=== PATIENT | male | born 1945 | race Caucasian/White ===

== ENCOUNTER → 2018-08-27 12:23 | Outpatient (CLI) | payer MEDICARE, SELFPAY ==
[2018-08-27 14:13] LABS: Absolute Lymphocyte Count 1.88 X10^3/ul (0.83-4.51); Absolute Neutrophil Count 3.7 X10^3/uL (2.0-7.7); Basophil# 0.02 X10^3/uL; Basophil% 0.3 % (0-1); Eosinophil# 0.08 X10^3/uL; Eosinophils% 1.3 % (0-5); Hematocrit 44.5 % (40-54); Hemoglobin 14.5 g/dl (13.0-16.5); Lymphocyte # 1.88 X10^3/ul (4.0); Lymphocyte % 30.5 % (19-41); Mean Corp Hgb Conc 32.6 g/gl (32-36); Mean Corpuscular Hgb 31.7 pg (27.0-32.0); Mean Corpuscular Volume 97.4 fL (80-94); Mean Platelet Vol. 10.1 fl (6.2-12.0); Monocyte# 0.45 X10^3/uL; Monocyte% 7.3 % (0-10); Neutrophil # 3.73 X10^3/uL (2.7-7.7); Neutrophil % 60.6 % (47-70); Platelet Count 265 K/mm3 (150-450); RBC Distribution Width CV 12.6 % (11.6-14.6); RBC Distribution Width SD 43.9 fl (35.1-43.9); Red Blood Count 4.57 M/mm3 (4.6-6.2); White Blood Count 6.2 K/mm3 (4.4-11.0)
[2018-08-27 14:14] LABS: POSITIVE COUNT NO; POSITIVE DIFFERENTIAL NO; POSITIVE MORPHOLOGY NO
[2018-08-27 14:17] LABS: Anion Gap 7 (5-15); BUN 7 mg/dL (7-18); BUN/Creat Ratio 7.8 RATIO (10-20); Calcium,Total 8.7 mg/dL (8.5-10.1); Chloride 101 mmol/L (98-107); Cholesterol 105 mg/dL (200); EST Glomerular Filtration Rate 87 mL/min (>60); Est Glom Filt Rate - Afr Amer 106 mL/min (>60); Glucose 83 mg/dL (74-106); High Density Lipoprotein 45 mg/dL; Potassium 3.8 mmol/L (3.5-5.1); Sodium Level 139 mmol/L (136-145); Triglycerides 208 mg/dL; Very Low Density Lipoprotein 42 mg/dL (5-40)
== END ==
PROVIDERS: Family Provider Family Medicine; PCP Family Medicine; Visit Provider Family Medicine
DX: Z86.73 Personal history of transient ischemic attack (TIA), and cerebral infarction without residual deficits (principal)
CPT/HCPCS: 36415; 80048; 80061; 85025

== ENCOUNTER 2019-01-05 14:55 | Emergency (ER) | payer MEDICARE, BC, SELFPAY ==
[2019-01-05 14:56] VITALS: BP 147/74; PULSE 65; RESP 15; TEMP 36.7; O2SAT 100; BMI 25.1
--- NOTE | 2019-01-05 15:19 | ED.DCSUM_ITS ---
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 Currently on Plavix and baby aspirin a day. Had a nosebleed a week ago and again today. All right sinus. Physical Examination: Older male no acute distress. Vital signs are stable. Initial blood pressure 147/74. HEENT exam is got bleeding from his right anterior nasal septum. No clots currently. Left side is unremarkable. There is a small amount of blood in posterior pharynx. No clots. Neck nontender. Lungs clear to auscultation bilaterally. Heart regular rhythm no murmur. Abdomen soft and nontender. Extremities he is extremely weak in the left arm and leg due to prior stroke. Right side is unremarkable. He is awake alert. Answering questions. Following commands. Test Results: None Emergency Department Course and Treatment: Andre-Synephrine soaked cotton balls be placed in both nares. On repeat exam of the bleeding is completely resolved. A right anterior Merisel nasal pack was placed patient tolerated procedure well. He will be ambulated as long as he does not believe the pain can be addressed to be discharged home. Treatment Plan: Packing out 3 days. Amoxicillin 3 times daily for 3 days. Follow-up with ENT as needed or return if worse. Hold his aspirin for the next 3 days. Disposition: Discharge Impression: Acute right-sided nosebleed Anterior nasal pack by ER Anticoagulated on both Plavix and aspirin History of prior CVA This note was generated with [employer] dictation software. It may contain incorrect words, spelling, and punctuation that were not noted in review of the chart prior to signing ED Disposition - Plan for ED Patient: Referrals: Kenny Martini MD [Primary Care Provider] -
--- NOTE | 2019-01-05 16:23 | ED.DEP ---
ED Disposition - Plan for ED Patient: Disposition: Home or Assisted Living Instructions: Nosebleed Prescriptions: Amoxicillin 250 mg PO Q8 #9 cap Referrals: Kenny Martini MD [Primary Care Provider] - As Needed Neil Bass MD [STAFF PHYSICIAN] - 3-5 Days if not improving Additional Instructions: Hold your daily baby aspirin. Remove the right nose nasal packing in 3 days which should be afternoon. If rebleeds hold 20 minutes of direct pressure if unable to stop return to the ER. Andre-Synephrine or Afrin nasal spray helps control his nosebleeds.
== END 2019-01-05 16:49 | disposition home or self-care (01) ==
PROVIDERS: Emergency Provider Emergency Medicine; Family Provider Family Medicine; PCP Family Medicine
DX: R04.0 Epistaxis (principal); I69.359 Hemiplegia and hemiparesis following cerebral infarction affecting unspecified side; I10 Essential (primary) hypertension; Z79.82 Long term (current) use of aspirin
CPT/HCPCS: 30901; 99282

== ENCOUNTER 2019-12-09 10:59 | Inpatient (IN) | payer MEDICARE, BC, SELFPAY ==
[2019-12-09 11:02] VITALS: BP 137/66; PULSE 96; RESP 18; TEMP 36.9; O2SAT 100; BMI 24.9
--- NOTE | 2019-12-09 11:50 | EKG12_ITS ---
Test Reason : FALL Blood Pressure : / mmHG Vent. Rate : 090 BPM Atrial Rate : 090 BPM P-R Int : 162 ms QRS Dur : 088 ms QT Int : 372 ms P-R-T Axes : 031 004 030 degrees QTc Int : 455 ms Sinus rhythm with frequent Premature ventricular complexes Otherwise normal ECG Confirmed by STEF HECTOR, CARLY ([id number]), senior technical editor MARVEL ALCOCER ([id number]) on 12/14/2019 8:44:21 AM Referred By: ELIDA Confirmed By:GRIFFIN FINCH MD
[2019-12-09 12:22] LABS: Absolute Lymphocyte Count 1.51 X10^3/uL (0.83-4.51); Absolute Neutrophil Count 7.1 X10^3/uL (2.0-7.7); Basophil# 0.03 X10^3/uL; Basophil% 0.3 % (0-1); Eosinophil# 0.04 X10^3/uL; Eosinophils% 0.4 % (0-5); Hematocrit 45.6 % (40-54); Hemoglobin 15.4 g/dL (13.0-16.5); Lymphocyte # 1.51 X10^3/ul (4.0); Lymphocyte % 16.3 % (19-41); Mean Corp Hgb Conc 33.8 g/dL (32-36); Mean Corpuscular Hgb 31.6 pg (27.0-32.0); Mean Corpuscular Volume 93.4 fL (80-94); Mean Platelet Vol. 9.5 fl (6.2-12.0); Monocyte# 0.58 X10^3/uL; Monocyte% 6.3 % (0-10); NRBC Flagged by Analyzer 0 % (0-5); Neutrophil # 7.08 X10^3/uL (2.7-7.7); Neutrophil % 76.4 % (47-70); Platelet Count 223 K/mm3 (150-450); RBC Distribution Width SD 44.1 fl (35.1-43.9); Red Blood Count 4.88 M/mm3 (4.6-6.2); White Blood Count 9.3 K/mm3 (4.4-11.0)
[2019-12-09 12:37] LABS: AST(SGOT) 38 U/L (15-37); Alanine Aminotransfer ALT/SGPT 33 U/L (16-61); Albumin, Serum 3.7 g/dL (3.2-5.0); Alkaline Phosphatase 97 U/L (45-117); Anion Gap 4 (5-15); BUN 6 mg/dL (7-18); BUN/Creat Ratio 6.9 RATIO (10-20); Calcium,Total 9.3 mg/dL (8.5-10.1); Chloride 106 mmol/L (98-107); Creatinine, Serum 0.86 mg/dL (0.70-1.30); EST Glomerular Filtration Rate 91 mL/min (>60); Est Glom Filt Rate - Afr Amer 111 mL/min (>60); Estimated Creatinine Clearance 77.83 ml/min; Globulin 3.8 g/dL (2.2-4.2); Glucose 98 mg/dL (74-106); Potassium 3.9 mmol/L (3.5-5.1); Protein, Total 7.5 g/dL (6.4-8.2); Sodium Level 139 mmol/L (136-145)
[2019-12-09 13:03] VITALS: BP 135/46; PULSE 91; RESP 17; O2SAT 98
--- NOTE | 2019-12-09 13:15 | RAD_ITS ---
STUDY: X-RAY - PELVIS AND LEFT HIP CLINICAL HISTORY: 74 years Male, fall yesterday causing pain to left hip; pt had a stroke in 2015 affecting his left side COMPARISON: None. TECHNIQUE: 3 view FINDINGS: Studies of the pelvis and left hip in two projections shows no evidence of fracture, dislocation, or bony destruction. It must be noted that there is rotation of the left femoral head and neck compared with the right hip presumably due to the patient''s previous CVA. No obvious evidence of fracture is seen. RAD/HIP, UNI W/ Pelvis 2-3 Views IMPRESSION: Normal pelvis and left hip. Electronically Signed: Greg Roberts, at 14:10 EST Tel , Service support ,
--- NOTE | 2019-12-09 13:15 | RAD_ITS ---
STUDY: X-RAY - LEFT SHOULDER REASON FOR EXAM: Male, 74 years old. fall yesterday causing pain to left shoulder; pt had a stroke in 2015 affecting his left side TECHNIQUE: 3 view(s) of the shoulder. COMPARISON: Previous chest obtained on 12/09/2019 FINDINGS: Studies of the left shoulder in 3 projections shows degenerative arthritis involving the glenohumeral articulation. There is no other evidence of fracture, dislocation, or bony destruction. 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 Electronically Signed: Greg Roberts, at 14:04 EST Tel , Service support ,
--- NOTE | 2019-12-09 13:15 | RAD_ITS ---
EXAM DESCRIPTION: PORTABLE AP CHEST CLINICAL HISTORY: 74 years Male, weakness weakness COMPARISON: Previous AP chest obtained on 01/31/2014 FINDINGS: The thorax is intact. The heart and mediastinum appear to be within normal limits. The lungs appear to be well areated without evidence of pneumonic consolidation or pleural effusion. RAD/Chest 1 View (Portable) IMPRESSION: Normal portable chest. Electronically Signed: Greg Roberts, at 14:11 EST Tel , Service support ,
--- NOTE | 2019-12-09 14:58 | CM.ED ---
SOCIAL WORK INFORMANT: DR. MARRERO REASON FOR REFERRAL: DISCHARGE PLANNING MET WITH PATIENT AND IN ROOM. INTRODUCED ROLE AND REASON FOR REFERRAL. PATIENT REPORTS FELL YESTERDAY AND THIS MORNING WAS UNABLE TO AMBULATE. PATIENT STATES LIVES IN 1 STORY HOME WITH 3 STEPS TO ENTER. 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 PATIENT STATES, I LIVE IN MY LIFT CHAIR. I'M IN IT MOST OF DAY AND ALL NIGHT. PATIENT AND REPORT [facility] PROVIDES AIDE TO HELP WITH SHOWER. REPORTS PATIENT IS UNABLE TO RETURN HOME SHE IS UNABLE TO PROVIDE CARE D/T PATIENT BEING UNABLE TO AMBULATE. PATIENT REPORTS WOULD LIKE TO GO TO [facility] REHAB OR TCU AND THIRD CHOICE WOULD BE [facility]RO[facility]. PATIENT DENIES HISTORY OF DEPRESSION AND ANXIETY, HOWEVER, WHEN ASKED REPORTED CONCERNS. PATIENT STATES I WAS DEPRESSED BECAUSE THEY WANTED TO GIVE ME A MEDICATION FOR DEPRESSION. ACTIVE LISTENING AND SUPPORT PROVIDED TO PATIENT AND . DISCUSSED POSSIBLE NEED FOR PRIVATE PAY TO FACILITY. PATIENT AND REPORT IF NEEDED MAY BE ABLE TO PRIVATELY PAY. INFORMED PATIENT A BARTACKER WILL FOLLOW UP TOMORROW TO CONTINUE TO DISCUSS DISCHARGE PLANNING. COLLABORATION WITH DR. MARRERO. DR. MARRERO TO DISCUSS WITH HOSPITALIST PATIENT AND ARE ADAMANT PATIENT IS UNABLE TO RETURN HOME AT THIS TIME AND REQUIRES REHAB. 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
--- NOTE | 2019-12-09 15:27 | CT_ITS ---
STUDY: CT LEFT HIP WITHOUT CONTRAST REASON FOR EXAM: Male, 74 years old. Fall. Left hip pain. RADIATION DOSAGE (If Supplied By Facility): CTDIvol = ( 15.98 ) mGy, DLP = ( 568.02 ) mGycm TECHNIQUE: Transaxial imaging of the pelvis was performed without oral contrast, and without intravenous administration of contrast material. Multiplanar coronal and sagittal images were reformatted. Individualized dose optimization techniques were used for this CT. COMPARISON: Pelvis and left hip, December 09, 2019. FINDINGS: Limited visualization of the intrapelvic structures appear grossly normal. There is evidence of a left inguinal hernia containing the right testicle. The visualized left pelvis appears intact and is without fracture. Normal left acetabulum. Normal femoral head and neck and proximal shaft. Left hip joint is narrowed and is in external rotation. The surrounding musculature appears grossly normal. CT/Extremity Lower without Contra IMPRESSION: 1. Degenerative changes of the left hip without fracture or dislocation. 2. Left inguinal hernia containing the left testicle. Electronically Signed: Riky Ford DO at 17:58 EST Tel [phone], Service support ,
--- NOTE | 2019-12-09 15:30 | ED.DCSUM_ITS ---
History of Present Illness Chief Complaint: Fall Narrative: Patient presents with left hip pain after fall yesterday. He has leg weakness from a prior stroke on the left as well as left arm weakness. There is no head injury loss consciousness or neck pain. No fever or chills. Past Medical History - Allergies and Home Meds Allergies/Adverse Reactions: Allergies No Known Allergies Allergy (Verified 12/03/13 11:24) Primary Care Physician: Kenny Martini MD [Primary Care Provider] - Past Medical History: - - Hypertension, hypercholesterolemia, CVA Smoking Status: Former smoker Review of Systems All systems negative except as indicated General: Reports: - - No head injury no loss of consciousness Respiratory: Reports: Dyspnea Genitourinary: Reports: Dysuria Musculoskeletal: Reports: - - Left hip pain Skin: Denies: Rash, Abscess Neurological: Reports: - - Old left-sided deficits Hematologic: Denies: Easy bruising Allergy: Denies: Uticaria Physical Exam Vital Signs/Narrative: Vital Signs Pulse Resp BP Pulse Ox 12/09/19 13:03 91 17 135/46 H 98 General: Well nourished, Well developed ENT: Moist mucous membranes Neck: Supple Cardiovascular: Regular rate, Regular rhythm Respiratory: No distress, CTA bilaterally Abdomen: Soft, Nontender Back: Nontender, Normal Inspection Extremities: - - He has weakness in the left upper and lower extremity, he has tenderness over his left hip and tenderness to logroll but he has no shortening or external rotation. Skin: Normal color Neurological: Alert, Normal Strength Diagnostic/Tx/Re-eval - Medical Decision Making Patient has normal x-ray of the hip, otherwise normal x-rays and work-up, however he feels tenderness and he cannot bear weight on this which normally he can, I will order CT and I will admit him. ED Disposition - Plan for ED Patient: Disposition: Acute Care Hospital [facility] Diagnosis: Contusion, hip Referrals: Kenny Martini MD [Primary Care Provider] -
--- NOTE | 2019-12-09 15:43 | HP.PCM_ITS ---
History of Present Illness Date of Admission: 12/09/19 Chief Complaint: Left hip pain The patient is a 74 year old M with past medical history of stroke with chronic left-sided deficits, hypertension, hyperlipidemia, who presented to the emergency room with complaints of left-sided pain. This began last night, the patient was in his basement, he bent over to pick something up and lost his balance. He fell striking his left hip and left shoulder. This is the side which is previously weak from stroke. He was unable to get up off the ground so EMS was contacted and they came and picked him up. After he was up he was able to ambulate. He was doing well that evening, sat down in his recliner where he normally sleeps, and when he woke up in the morning he had severe pain. He was unable to walk. He called his doctor who advised him to call the squad to go to the ER. He came to the emergency room currently has 3 out of 10 pain in his left hip. X-ray of the left hip and left shoulder are negative for acute process. He is going for CT. He is unable to ambulate at this time. He states otherwise he has been in his normal state of health. [] Past Medical History Past Medical History (Chronic Problems): Chronic Problems HTN (hypertension) (Chronic) Dyslipidemia (Chronic) Allergies No Known Allergies Allergy (Verified 12/03/13 11:24) Home Medications: Ambulatory Orders Medication Instructions Recorded Atorvastatin Calcium [Lipitor] 80 mg PO QHS #1 tablet 02/02/14 Amlodipine [Norvasc] 5 mg PO DAILY #30 tablet 02/25/14 Lisinopril [Zestril] 20 mg PO DAILY #30 tablet 02/25/14 Clopidogrel Bisulfate [Plavix] 75 mg PO DAILY #30 tablet 03/31/14 Acetaminophen [Tylenol Extra 1,000 mg PO Q6H PRN PRN 12/09/19 Strength] Famotidine 20 mg PO DAILY 12/09/19 Surgical History: appendectomy, cholecystectomy, tonsillectomy Psychiatric History: No pertinent psych hx Lives: Spouse/ Significant Other Smoking Status: Former smoker Tobacco Use: Non-smoker Alcohol: None Drugs: None - *Family History Maternal History Items: Cancer - Lung Paternal History Items: Cancer - Lung, Stroke Review of Systems Constitutional: Denies: Chills, Fever, Weight Change HEENT: Denies: Head Aches, Sinus Congestion, Sinus Drainage Cardiovascular: Denies: Chest Pain, Palpitations Respiratory: Denies: Cough, Shortness of breath at rest, Sputum production Gastrointestinal: Denies: Abdominal Pain, Nausea, Vomiting Genitourinary: Denies: Dysuria Musculoskeletal: Reports: Joint Pain - Left shoulder and hip. Denies: Joint Tenderness Skin: Denies: Rash, Wounds Neurological: Denies: Numbness, Tingling, Focal weakness Psychiatric: Denies: Anxiety, Depression, Homicidal Ideations, Suicidal Ideations Hematologic/ Lymphatic: Denies: Easy Bruising, Easy Bleeding VTE Information - Inpt Only VTE Present on Admission: No VTE Mechan Device Prophylaxis: None VTE Pharm Prophylaxis ordered?: Yes - Physical Exam Vitals/I&O's: Vital Signs Temp Pulse Resp BP Pulse Ox 98.5 F 91 17 135/46 H 98 12/09/19 11:02 12/09/19 13:03 12/09/19 13:03 12/09/19 13:03 12/09/19 13:03 Oxygen Flow Rate (L/min) 96 Oxygen Delivery Method Room Air Weight: 178 lb 9.191 oz Body Mass Index (BMI) 24.9 Finger Stick Blood Glucose 109 General: Alert, Oriented x3, Cooperative HEENT: Atraumatic, PERRLA, EOMI, Normocephalic Neck: Supple, No JVD, Negative Carotid Bruits Lungs: Clear to auscultation, Normal air movement Cardiovascular: Regular rate, No murmurs Abdomen: Bowel Sounds Present, Soft, Non Tender Extremities: No edema, Capillary Refill Less than 3 Seconds Skin: No rashes, No breakdown Musculoskeletal: - - ROM limited secondary to pain Neurological: Cranial nerves II-XII grossly intact Psych/Mental Status: Normal Affect, Appropriate, Alert and oriented to time, place, person, mood and affect Laboratory Results 12/09/19 12:10: WBC 9.3, RBC 4.88, Hgb 15.4, Hct 45.6, MCV 93.4, MCH 31.6, MCHC 33.8, RDW Std Deviation 44.1 H, RDW Coeff of [place] 13.0, Plt Count 223, MPV 9.5, Immature Gran % (Auto) 0.300, Neut % (Auto) 76.4 H, Lymph % (Auto) 16.3 L, Giles % (Auto) 6.3, Eos % (Auto) 0.4, Baso % (Auto) 0.3, Absolute Neuts (auto) 7.1, Absolute Lymphs (auto) 1.51, Nucleated RBC % 0 12/09/19 12:10: Sodium 139, Potassium 3.9, Chloride 106, Carbon Dioxide 29.0, Anion Gap 4 L, BUN 6 L, Creatinine 0.86, Estim Creat Clear Calc 77.83, Est GFR (MDRD) Af Amer 111, Est GFR (MDRD) Non-Af 91, BUN/Creatinine Ratio 6.9 L, Glucose 98, Calcium 9.3, Total Bilirubin 1.60 H, AST 38 H, ALT 33, Alkaline Phosphatase 97, Total Protein 7.5, Albumin 3.7, Globulin 3.8, Albumin/Globulin Ratio 1.0 Assessment/Plan All Active Problems Depression (Acute) Insomnia (Acute) Anxiety (Acute) Physical debility (Acute) Right middle cerebral artery stroke (Acute) 1. Intractable left hip pain-secondary to fall, mechanical, on the left side. Could not ambulate. X-ray of the hip and shoulder are negative for acute proces s. Patient is going for CT of the left hip. Patient will be admitted for therapy, pain control and to rule out underlying fracture 2. Prior CVA - chronic left sided deficits - statin, plavix 3. HTN - stable 4. HLD - statin DVT ppx: lovenox DC planning: cannot ambulate. PTOT. May need SNF This patient was seen by Jd Saleh PA-C under the supervision of Dr. Wills.
--- NOTE | 2019-12-09 16:33 | NURSING ---
MED SURG INTRACTABLE HIP PAIN WHITE
[2019-12-09 18:00] VITALS: BMI 24.9
[2019-12-09 18:04] VITALS: BMI 23.6
[2019-12-09 18:55] VITALS: BP 140/65; PULSE 77; RESP 16; TEMP 36.7; O2SAT 97
[2019-12-09] MEDS: 0.9% Saline Lock 10 ML Syringe IV (21:19)
[2019-12-09] MEDS: 0.9% Normal Saline 1,000 ML 75 ML IV (21:19)
[2019-12-09 22:43] VITALS: BP 148/71; PULSE 96; RESP 16; TEMP 37.1; O2SAT 93
[2019-12-09] MEDS: Atorvastatin Calcium 80 MG Tablet PO (22:45)
[2019-12-09] MEDS: Acetaminophen 500 MG Tablet 1000 MG PO (22:45)
[2019-12-09] MEDS: Menthol/Lanolin/Calamine/Znox 113 GM Tube 1 APPLIC TOPICAL (22:45)
[2019-12-10 03:36] VITALS: BP 141/52; PULSE 82; RESP 18; TEMP 36.4; O2SAT 92
[2019-12-10] MEDS: Acetaminophen 500 MG Tablet 1000 MG PO ×3 (05:55→21:02)
[2019-12-10 07:28] VITALS: BP 146/79; PULSE 75; RESP 16; TEMP 36.6; O2SAT 93
[2019-12-10] MEDS: 0.9% Normal Saline 1,000 ML 75 ML IV ×2 (11:09→22:48)
[2019-12-10] MEDS: Famotidine 20 MG Tablet PO (11:10)
[2019-12-10] MEDS: amLODIPine 5 MG Tablet PO (11:10)
[2019-12-10] MEDS: Lisinopril 20 MG Tablet PO (11:11)
[2019-12-10] MEDS: Menthol/Lanolin/Calamine/Znox 113 GM Tube 1 APPLIC TOPICAL ×2 (11:11→21:04)
[2019-12-10] MEDS: Clopidogrel Bisulfate 75 MG Tablet PO (11:11)
--- NOTE | 2019-12-10 13:07 | PN_ITS ---
<Lotus Saeed - Last Filed: 12/10/19 13:15> Patient Problems: Active and Suspected Problems Contusion, hip (Acute) Subjective: Patient seen and examined. Patient reports he is still unable to bear weight left lower extremity due to severe hip pain. Denies lower back pain. Denies left lower extremity numbness or weakness. - Physical Exam Vitals/I&O's: Vital Signs Temp Pulse Resp BP Pulse Ox 97.9 F 75 16 146/79 H 93 12/10/19 07:28 12/10/19 07:28 12/10/19 07:28 12/10/19 07:28 12/10/19 07:28 Oxygen Flow Rate (L/min) 96 Oxygen Delivery Method Room Air Weight: 169 lb 5.04 oz Body Mass Index (BMI) 23.6 Finger Stick Blood Glucose 109 Intake and Output for Last 24 Hours 12/08/19 12/09/19 12/10/19 23:59 23:59 23:59 Intake Total 1650 / 1650 Output Total 125 / 125 Balance 1525 / 1525 General: Alert, Oriented x3, Cooperative HEENT: Atraumatic, PERRLA, EOMI, Normocephalic Neck: Supple, No JVD, Negative Carotid Bruits Lungs: Clear to auscultation, Normal air movement Cardiovascular: Regular rate, Regular Rhythm, Normal S1, Normal S2, No murmurs Abdomen: Bowel Sounds Present, Soft, Non Tender Extremities: No clubbing, No cyanosis, No edema, Capillary Refill Less than 3 Seconds Skin: No rashes, No breakdown Musculoskeletal: Tenderness - Left hip Neurological: Cranial nerves II-XII grossly intact, Neuro grossly intact Psych/Mental Status: Normal Affect, Appropriate Current Medications Acetaminophen (Tylenol) 1,000 mg PO Q8 [facility] Last Admin: 12/10/19 05:55 Dose: 1,000 mg Documented by: Amlodipine Besylate (Norvasc) 5 mg PO DAILY [facility] Last Admin: 12/10/19 11:10 Dose: 5 mg Documented by: Atorvastatin Calcium (Lipitor) 80 mg PO QHS [facility] Last Admin: 12/09/19 22:45 Dose: 80 mg Documented by: Calamine/Phenol (Calmoseptine Ointment) 1 applic TOPICAL BID [facility]; Protocol Last Admin: 12/10/19 11:11 Dose: 1 applicatio Documented by: Clopidogrel Bisulfate (Plavix) 75 mg PO DAILY [facility] Last Admin: 12/10/19 11:11 Dose: 75 mg Documented by: Famotidine (Pepcid) 20 mg PO DAILY [facility] Last Admin: 12/10/19 11:10 Dose: 20 mg Documented by: Sodium Chloride () 1,000 mls @ 75 mls/hr IV .[id number] [facility] Last Admin: 12/10/19 11:09 Dose: 75 mls/hr Documented by: Ketorolac Tromethamine (Toradol (Bkc)) 15 mg IV Q8H PRN PRN PRN Reason: Pain Score 1-10/10 Stop: 12/14/19 18:21 Lisinopril (Zestril) 20 mg PO DAILY [facility] Last Admin: 12/10/19 11:11 Dose: 20 mg Documented by: Morphine Sulfate () 1 mg IV Q3H PRN PRN PRN Reason: Pain Score 6-10/10 Nutritional Formula (Lactose Free) (Ensure Enlive) 120 ml PO 4X/DAY [facility] Last Admin: 12/10/19 11:10 Dose: 120 ml Documented by: Ondansetron HCl (Zofran) 4 mg IV Q6H PRN PRN PRN Reason: NAUSEA Oxycodone HCl (Oxyir) 5 mg PO Q6H PRN PRN PRN Reason: Pain Score 6-10/10 Sodium Chloride () 10 - 40 ml IV UD PRN PRN Reason: SALINE FLUSH Last Admin: 12/09/19 21:19 Dose: 10 ml Documented by: Medical Necessity - Tobacco Use Smoking Status: Former smoker Tobacco Use: Cigarettes Assessment/Plan All Active Problems Contusion, hip (Acute) Depression (Acute) Insomnia (Acute) Anxiety (Acute) Physical debility (Acute) Right middle cerebral artery stroke (Acute) 1. Intractable left hip pain secondary to mechanical fall prior to admission with general debility-hip and pelvis x-ray normal. CT lower extremity showed degenerative changes left hip without fracture or dislocation. PT/OT. PRN pain regimen. Further disposition pending PT eval. Fall precautions. 2. History of right MCA CVA-chronic left-sided hemiplegia. Worsened by #1. Continue Plavix, statin. 3. Hypertension-stable, continue Norvasc, lisinopril. 4. Hyperlipidemia-continue statin. 5. GERD-continue famotidine. DVT prophylaxis- Lovenox sc Discharge planning: Pending PT eval. This patient was seen by NOAH Grier under the supervision of Dr. Velasquez. <Jacob Velasquez - Last Filed: 12/10/19 15:00> Subjective: Seen and examined with PROFESSIONAL DRIVER. Patient is apprehensive to move his left lower extremity because of pain. He fell on left hip and back about 2 days ago at night in basement. He denies lower back pain. Not able to bear weight on left lower leg as he collapses when he tries to do it - Physical Exam Vitals/I&O's: Vital Signs Temp Pulse Resp BP Pulse Ox 98.3 F 86 18 135/65 H 97 12/10/19 13:30 12/10/19 13:30 12/10/19 13:30 12/10/19 13:30 12/10/19 13:30 Oxygen Flow Rate (L/min) 96 Oxygen Delivery Method Room Air Weight: 169 lb 5.04 oz Body Mass Index (BMI) 23.6 Finger Stick Blood Glucose 109 Intake and Output for Last 24 Hours 12/08/19 12/09/19 12/10/19 23:59 23:59 23:59 Intake Total 1650 / 1650 Output Total 125 / 125 Balance 1525 / 1525 General: Alert, Oriented x3, Cooperative HEENT: Atraumatic, PERRLA, EOMI, Normocephalic Neck: Supple, No JVD, Negative Carotid Bruits Lungs: Clear to auscultation, Normal air movement, No rhonchi, No wheeze, No rales Cardiovascular: Regular rate, Regular Rhythm, Normal S1, Normal S2, No murmurs Abdomen: Bowel Sounds Present, Soft, Non Tender, Non-Distended Extremities: No edema, Capillary Refill Less than 3 Seconds Skin: No rashes, No breakdown Musculoskeletal: No Tenderness to Palpation of Joints or Extremities, Tenderness - Left hip Mild tenderness present on the greater trochanter and gluteal region of pelvis. Neurological: Cranial nerves II-XII grossly intact, Deep Tendon Reflexes 2+/4 and Symmetrical, Neuro grossly intact, - - Mild weakness of the left ankle extensor: Mild left foot drop. Psych/Mental Status: Normal Affect, Appropriate Current Medications Acetaminophen (Tylenol) 1,000 mg PO Q8 [facility] Last Admin: 12/10/19 13:33 Dose: 1,000 mg Documented by: Amlodipine Besylate (Norvasc) 5 mg PO DAILY [facility] Last Admin: 12/10/19 11:10 Dose: 5 mg Documented by: Atorvastatin Calcium (Lipitor) 80 mg PO QHS [facility] Last Admin: 12/09/19 22:45 Dose: 80 mg Documented by: Calamine/Phenol (Calmoseptine Ointment) 1 applic TOPICAL BID [facility]; Protocol Last Admin: 12/10/19 11:11 Dose: 1 applicatio Documented by: Clopidogrel Bisulfate (Plavix) 75 mg PO DAILY [facility] Last Admin: 12/10/19 11:11 Dose: 75 mg Documented by: Famotidine (Pepcid) 20 mg PO DAILY [facility] Last Admin: 12/10/19 11:10 Dose: 20 mg Documented by: Sodium Chloride () 1,000 mls @ 75 mls/hr IV .[id number] [facility] Last Admin: 12/10/19 11:09 Dose: 75 mls/hr Documented by: Ketorolac Tromethamine (Toradol (Bkc)) 15 mg IV Q8H PRN PRN PRN Reason: Pain Score 1-10/10 Stop: 12/14/19 18:21 Lisinopril (Zestril) 20 mg PO DAILY [facility] Last Admin: 12/10/19 11:11 Dose: 20 mg Documented by: Morphine Sulfate () 1 mg IV Q3H PRN PRN PRN Reason: Pain Score 6-10/10 Nutritional Formula (Lactose Free) (Ensure Enlive) 120 ml PO 4X/DAY [facility] Last Admin: 12/10/19 13:34 Dose: 120 ml Documented by: Ondansetron HCl (Zofran) 4 mg IV Q6H PRN PRN PRN Reason: NAUSEA Oxycodone HCl (Oxyir) 5 mg PO Q6H PRN PRN PRN Reason: Pain Score 6-10/10 Sodium Chloride () 10 - 40 ml IV UD PRN PRN Reason: SALINE FLUSH Last Admin: 12/09/19 21:19 Dose: 10 ml Documented by: Assessment/Plan This patient was seen in conjunction with PROFESSIONAL DRIVERLotus. I have independently interviewed and examined the patient and reviewed pertinent history, examination findings, laboratory and plan of management. I have reviewed the note and agree with the documented findings with the few additional points. In brief, patient is admitted for intractable left hip pain and inability to bear weight secondary to fall. Patient had x-ray hip and pelvis followed by CT scan lower extremity was negative for fracture dislocation but degenerative changes suggestive of left hip arthritis. On pain medication and muscle relaxant. PT and OT to eval. Patient has history of mild left-sided weakness secondary to right MCA chronic infarct. No change. Continue patient home medication Plavix and statin. Other comorbidities as mentioned above. I have discussed my assessment with Lotus ISABEL and orders have been reviewed. Code Visit Inpatient E&M: 70899 Subs Hosp L2
[2019-12-10 13:30] VITALS: BP 135/65; PULSE 86; RESP 18; TEMP 36.8; O2SAT 97
--- NOTE | 2019-12-10 13:58 | CASEMGMT ---
Addendum entered by Donna Dutta 12/10/19 15:12: CARLITA received call from Hoda at [facility] stating [facility] is able to accept pt Saturday. SW updated pt and Amura on acceptance to [facility] Saturday. Plan: [facility] Saturday Original Note: Social Work Note SW placed a call to referral line for pt. TCU or [facility] will not have a bed available until next week. SW in to speak with pt and pt's Maura present in room. Pt gave this worker permission to speak to him in front of his guest. SW updated pt and Maura that the units at [facility], both TCU and [facility] will not have any beds available until next week. Maura states the next choice for SNF is [facility]. SW explained Medicare rules and that there has to be a medical reason to keep pt. SW explained that if pt doesn't need a medical reason to stay until Saturday, then going to SNF will be private pay. Maura states they will not be able to afford private pay for SNF. SW informed Maura that this worker can send referral to [facility] and plan on discharge Saturday but again reiterated that if pt discharges before Saturday it will be private pay for SNF. Maura and pt state understanding. SW faxed referral to [facility]. Plan: [facility] Saturday pending acceptance Donna Dutta FUR TRAPPER, EAR FLAP BINDER
[2019-12-10 20:15] VITALS: BP 130/66; PULSE 65; RESP 18; TEMP 37.1; O2SAT 96
[2019-12-10] MEDS: Atorvastatin Calcium 80 MG Tablet PO (22:48)
[2019-12-11 02:15] VITALS: BP 134/64; PULSE 76; RESP 18; TEMP 36.4; O2SAT 96
[2019-12-11] MEDS: Acetaminophen 500 MG Tablet 1000 MG PO ×3 (05:48→22:24)
[2019-12-11 08:15] VITALS: BP 132/71; PULSE 87; RESP 18; TEMP 36.8; O2SAT 96
[2019-12-11] MEDS: Clopidogrel Bisulfate 75 MG Tablet PO (09:37)
[2019-12-11] MEDS: Famotidine 20 MG Tablet PO (09:37)
[2019-12-11] MEDS: Lisinopril 20 MG Tablet PO (09:37)
[2019-12-11] MEDS: amLODIPine 5 MG Tablet PO (09:37)
[2019-12-11] MEDS: 0.9% Normal Saline 1,000 ML 75 ML IV (12:39)
[2019-12-11] MEDS: Menthol/Lanolin/Calamine/Znox 113 GM Tube 1 APPLIC TOPICAL ×2 (12:39→22:33)
--- NOTE | 2019-12-11 13:48 | PN_ITS ---
<Lotus Saeed - Last Filed: 12/11/19 13:50> Patient Problems: Active and Suspected Problems Contusion, hip (Acute) Subjective: Patient seen and examined. Working with physical therapy. Patient voices fear that he is going to fall and based on observation, ambulated very minimally with therapy. He reports left hip pain improved however continues to have weakness and states that his left leg gives out on him. SNF pending approval. - Physical Exam Vitals/I&O's: Vital Signs Temp Pulse Resp BP Pulse Ox 98.2 F 87 18 132/71 H 96 12/11/19 08:15 12/11/19 08:15 12/11/19 08:15 12/11/19 08:15 12/11/19 08:15 Oxygen Flow Rate (L/min) 96 Oxygen Delivery Method Room Air Weight: 169 lb 5.04 oz Body Mass Index (BMI) 23.6 Finger Stick Blood Glucose 109 Intake and Output for Last 24 Hours 12/09/19 12/10/19 12/11/19 23:59 23:59 23:59 Intake Total 2523.75 / 2523.75 1700 / 1700 Output Total 125 / 125 750 / 750 Balance 2398.75 / 2398.75 950 / 950 General: Alert, Oriented x3, Cooperative HEENT: Atraumatic, PERRLA, EOMI, Normocephalic Neck: Supple, No JVD, Negative Carotid Bruits Lungs: Clear to auscultation, Normal air movement Cardiovascular: Regular rate, Regular Rhythm, Normal S1, Normal S2, No murmurs Abdomen: Bowel Sounds Present, Soft, Non Tender, Non-Distended Extremities: No clubbing, No cyanosis, No edema, Capillary Refill Less than 3 Seconds Skin: No rashes, No breakdown Musculoskeletal: No Tenderness to Palpation of Joints or Extremities, Tenderness - Left hip Neurological: Cranial nerves II-XII grossly intact, Neuro grossly intact Psych/Mental Status: Anxious Current Medications Acetaminophen (Tylenol) 1,000 mg PO Q8 [facility] Last Admin: 12/11/19 13:41 Dose: 1,000 mg Documented by: Amlodipine Besylate (Norvasc) 5 mg PO DAILY [facility] Last Admin: 12/11/19 09:37 Dose: 5 mg Documented by: Atorvastatin Calcium (Lipitor) 80 mg PO QHS [facility] Last Admin: 12/10/19 22:48 Dose: 80 mg Documented by: Calamine/Phenol (Calmoseptine Ointment) 1 applic TOPICAL BID [facility]; Protocol Last Admin: 12/11/19 12:39 Dose: 1 applicatio Documented by: Clopidogrel Bisulfate (Plavix) 75 mg PO DAILY [facility] Last Admin: 12/11/19 09:37 Dose: 75 mg Documented by: Enoxaparin Sodium (Lovenox) 40 mg SC DAILY [facility] Last Admin: 12/11/19 09:47 Dose: Not Given Documented by: Famotidine (Pepcid) 20 mg PO DAILY [facility] Last Admin: 12/11/19 09:37 Dose: 20 mg Documented by: Sodium Chloride () 1,000 mls @ 75 mls/hr IV .[id number] [facility] Last Admin: 12/11/19 12:39 Dose: 75 mls/hr Documented by: Ketorolac Tromethamine (Toradol (Bkc)) 15 mg IV Q8H PRN PRN PRN Reason: Pain Score 1-10/10 Stop: 12/14/19 18:21 Lisinopril (Zestril) 20 mg PO DAILY [facility] Last Admin: 12/11/19 09:37 Dose: 20 mg Documented by: Morphine Sulfate () 1 mg IV Q3H PRN PRN PRN Reason: Pain Score 6-10/10 Nutritional Formula (Lactose Free) (Ensure Enlive) 120 ml PO 4X/DAY [facility] Last Admin: 12/11/19 13:41 Dose: 120 ml Documented by: Ondansetron HCl (Zofran) 4 mg IV Q6H PRN PRN PRN Reason: NAUSEA Oxycodone HCl (Oxyir) 5 mg PO Q6H PRN PRN PRN Reason: Pain Score 6-10/10 Sodium Chloride () 10 - 40 ml IV UD PRN PRN Reason: SALINE FLUSH Last Admin: 12/09/19 21:19 Dose: 10 ml Documented by: Medical Necessity - Tobacco Use Smoking Status: Former smoker Tobacco Use: Cigarettes Assessment/Plan All Active Problems Contusion, hip (Acute) Depression (Acute) Insomnia (Acute) Anxiety (Acute) Physical debility (Acute) Right middle cerebral artery stroke (Acute) 1. Intractable left hip pain secondary to mechanical fall prior to admission with general debility-hip and pelvis x-ray normal. CT lower extremity showed degenerative changes left hip without fracture or dislocation. PT/OT. PRN pain regimen. Fall precautions. SNF pending approval. 2. History of right MCA CVA-chronic left-sided hemiplegia. Worsened by #1. Continue Plavix, statin. 3. Hypertension-stable, continue Norvasc, lisinopril. 4. Hyperlipidemia-continue statin. 5. GERD-continue famotidine. DVT prophylaxis- Lovenox ri Discharge planning: [facility]. This patient was seen by NOAH Grier under the supervision of Dr. Velasquez. <Jacob Velasquez - Last Filed: 12/11/19 14:22> Subjective: Patient stood up with help of physical therapist and had done but could not walk. Left hip pain has improved but is still complained of weakness and is not able to walk. - Physical Exam Vitals/I&O's: Vital Signs Temp Pulse Resp BP Pulse Ox 98.2 F 87 18 132/71 H 96 12/11/19 08:15 12/11/19 08:15 12/11/19 08:15 12/11/19 08:15 12/11/19 08:15 Oxygen Flow Rate (L/min) 96 Oxygen Delivery Method Room Air Weight: 169 lb 5.04 oz Body Mass Index (BMI) 23.6 Finger Stick Blood Glucose 109 Intake and Output for Last 24 Hours 12/09/19 12/10/19 12/11/19 23:59 23:59 23:59 Intake Total 2523.75 / 2523.75 1700 / 1700 Output Total 125 / 125 750 / 750 Balance 2398.75 / 2398.75 950 / 950 General: Alert, Oriented x3, Cooperative HEENT: Atraumatic, PERRLA, EOMI, Normocephalic Neck: Supple, No JVD, Negative Carotid Bruits Lungs: Clear to auscultation, Normal air movement Cardiovascular: Regular rate, Regular Rhythm, Normal S1, Normal S2, Murmur - Ejection systolic murmur over aortic region. Pansystolic murmur over left lower sternal border. Abdomen: Bowel Sounds Present, Soft, Non Tender, Non-Distended Extremities: No edema, Capillary Refill Less than 3 Seconds Skin: No rashes, No breakdown Musculoskeletal: Arthritic Changes, Tenderness Neurological: Cranial nerves II-XII grossly intact, Deep Tendon Reflexes 2+/4 and Symmetrical, Neuro grossly intact Psych/Mental Status: Normal Affect, Appropriate Current Medications Acetaminophen (Tylenol) 1,000 mg PO Q8 [facility] Last Admin: 12/11/19 13:41 Dose: 1,000 mg Documented by: Amlodipine Besylate (Norvasc) 5 mg PO DAILY [facility] Last Admin: 12/11/19 09:37 Dose: 5 mg Documented by: Atorvastatin Calcium (Lipitor) 80 mg PO QHS [facility] Last Admin: 12/10/19 22:48 Dose: 80 mg Documented by: Calamine/Phenol (Calmoseptine Ointment) 1 applic TOPICAL BID [facility]; Protocol Last Admin: 12/11/19 12:39 Dose: 1 applicatio Documented by: Clopidogrel Bisulfate (Plavix) 75 mg PO DAILY [facility] Last Admin: 12/11/19 09:37 Dose: 75 mg Documented by: Enoxaparin Sodium (Lovenox) 40 mg SC DAILY [facility] Last Admin: 12/11/19 09:47 Dose: Not Given Documented by: Famotidine (Pepcid) 20 mg PO DAILY [facility] Last Admin: 12/11/19 09:37 Dose: 20 mg Documented by: Sodium Chloride () 1,000 mls @ 75 mls/hr IV .[id number] [facility] Last Admin: 12/11/19 12:39 Dose: 75 mls/hr Documented by: Ketorolac Tromethamine (Toradol (Bkc)) 15 mg IV Q8H PRN PRN PRN Reason: Pain Score 1-10/10 Stop: 12/14/19 18:21 Lisinopril (Zestril) 20 mg PO DAILY [facility] Last Admin: 12/11/19 09:37 Dose: 20 mg Documented by: Morphine Sulfate () 1 mg IV Q3H PRN PRN PRN Reason: Pain Score 6-10/10 Nutritional Formula (Lactose Free) (Ensure Enlive) 120 ml PO 4X/DAY [facility] Last Admin: 12/11/19 13:41 Dose: 120 ml Documented by: Ondansetron HCl (Zofran) 4 mg IV Q6H PRN PRN PRN Reason: NAUSEA Oxycodone HCl (Oxyir) 5 mg PO Q6H PRN PRN PRN Reason: Pain Score 6-10/10 Sodium Chloride () 10 - 40 ml IV UD PRN PRN Reason: SALINE FLUSH Last Admin: 12/09/19 21:19 Dose: 10 ml Documented by: Assessment/Plan This patient was seen in conjunction with Lotus ISABEL. I have independently interviewed and examined the patient and reviewed pertinent history, examination findings, laboratory and plan of management. I have reviewed the note and agree with the documented findings with the few additional points. In brief, patient is admitted for intractable left hip pain and inability to bear weight secondary to fall. Patient had x-ray hip and pelvis followed by CT scan lower extremity was negative for fracture dislocation but degenerative changes suggestive of left hip arthritis. On pain medication and muscle relaxant. PT and OT to eval. Patient has systolic murmur over aortic valve and left lower sternal border most probably aortic stenosis; grade 3/6 therefore most probably mild to moderate aortic stenosis and/or TR. Patient was advised to have outpatient echo, to be ordered by PCP. Patient does not have shortness of breath, chest pain, leg edema or dyspnea on exertion to suggest severe valvular abnormality or heart failure Patient has history of mild left-sided weakness secondary to right MCA chronic infarct. No change. Continue patient home medication Plavix and statin. Other comorbidities as mentioned above. I have discussed my assessment with Lotus ISABEL and orders have been reviewed. Code Visit Inpatient E&M: 07910 Subs Hosp L2
--- NOTE | 2019-12-11 15:51 | CASEMGMT ---
Social Work Plan is for pt to transfer to [facility] on Saturday. Pt and are aware and agreeable. Phone call to Hoda at [place] and she is aware and able to accept pt. HENS completed and placed on chart. Plan: D/C to [facility] on Saturday. BRANDY Yadav
[2019-12-11 15:53] VITALS: BP 148/63; PULSE 74; RESP 18; TEMP 37; O2SAT 98
--- NOTE | 2019-12-11 16:04 | CHAPLAIN ---
Type of Pastoral Visit _x__ Initial Visit ___ Follow-up Visit ___ On-call Visit ___ General Patient Visit ___ Spiritual Assessment ___ Family Conference ___ Bereavement ___ Rapid Response ___ Code Blue ___ Other (describe below) Pastoral Care Referral From _x__ Patient ___ Family ___ Nurse ___ Physician ___ Touring Production Manager ___ Sleeping Car Service Attendant ___ Other (describe below) Sacrament/Intervention _x__ Active listening ___ Anointing ___ Baptist ___ Bereavement ___ Communion ___ Natalya exploration ___ _x__ Life review ___ Prayer ___ Reconciliation ___ Sacrament of Sick _x__ Supportive presence ___ Wedding ___ Other (describe below) Pastoral Comments
[2019-12-11 22:00] VITALS: BP 144/81; PULSE 89; RESP 18; TEMP 36.4; O2SAT 98
[2019-12-11] MEDS: Atorvastatin Calcium 80 MG Tablet PO (22:24)
[2019-12-12] MEDS: 0.9% Normal Saline 1,000 ML 75 ML IV (00:57)
[2019-12-12 03:55] VITALS: BP 135/71; PULSE 68; RESP 18; TEMP 36.8; O2SAT 97
[2019-12-12] MEDS: Acetaminophen 500 MG Tablet 1000 MG PO ×3 (06:10→22:27)
[2019-12-12 10:30] VITALS: BP 130/68; PULSE 63; RESP 18; TEMP 36.7; O2SAT 100
[2019-12-12] MEDS: Clopidogrel Bisulfate 75 MG Tablet PO (10:55)
[2019-12-12] MEDS: Menthol/Lanolin/Calamine/Znox 113 GM Tube 1 APPLIC TOPICAL ×2 (10:55→22:26)
[2019-12-12] MEDS: Famotidine 20 MG Tablet PO (10:55)
[2019-12-12] MEDS: amLODIPine 5 MG Tablet PO (10:55)
[2019-12-12] MEDS: Lisinopril 20 MG Tablet PO (10:56)
--- NOTE | 2019-12-12 12:08 | PCM.PROGNOTE ---
<Lotus Seaed - Last Filed: 12/12/19 12:09> Patient Problems: Active and Suspected Problems Contusion, hip (Acute) Subjective: Patient seen and examined. Has not yet been up with therapy today. States he is scared to fall when he ambulates however is motivated to work with therapy and regain strength. Plan for [facility] tomorrow. - Physical Exam Vitals/I&O's: Vital Signs Temp Pulse Resp BP Pulse Ox 98.1 F 63 18 130/68 H 100 12/12/19 10:30 12/12/19 10:30 12/12/19 10:30 12/12/19 10:30 12/12/19 10:30 Oxygen Flow Rate (L/min) 96 Oxygen Delivery Method Room Air Weight: 169 lb 5.04 oz Body Mass Index (BMI) 23.6 Finger Stick Blood Glucose 109 Intake and Output for Last 24 Hours 12/10/19 12/11/19 12/12/19 23:59 23:59 23:59 Intake Total 2523.75 / 2523.75 2900 / 3100 1322.5 / 1322.5 Output Total 125 / 125 1550 / 1550 Balance 2398.75 / 2398.75 1350 / 1550 1322.5 / 1322.5 General: Alert, Oriented x3, Cooperative HEENT: Atraumatic, PERRLA, EOMI, Normocephalic Neck: Supple, No JVD, Negative Carotid Bruits Lungs: Clear to auscultation, Normal air movement Cardiovascular: Regular rate, Regular Rhythm, Normal S1, Normal S2, No murmurs Abdomen: Bowel Sounds Present, Soft, Non Tender, Non-Distended Extremities: No clubbing, No cyanosis, No edema Skin: No rashes, No breakdown Musculoskeletal: No Tenderness to Palpation of Joints or Extremities Neurological: Cranial nerves II-XII grossly intact, Neuro grossly intact Psych/Mental Status: Normal Affect, Appropriate Current Medications Acetaminophen (Tylenol) 1,000 mg PO Q8 [facility] Last Admin: 12/12/19 06:10 Dose: 1,000 mg Documented by: Amlodipine Besylate (Norvasc) 5 mg PO DAILY [facility] Last Admin: 12/12/19 10:55 Dose: 5 mg Documented by: Atorvastatin Calcium (Lipitor) 80 mg PO QHS [facility] Last Admin: 12/11/19 22:24 Dose: 80 mg Documented by: Calamine/Phenol (Calmoseptine Ointment) 1 applic TOPICAL BID [facility]; Protocol Last Admin: 12/12/19 10:55 Dose: 1 applicatio Documented by: Clopidogrel Bisulfate (Plavix) 75 mg PO DAILY [facility] Last Admin: 12/12/19 10:55 Dose: 75 mg Documented by: Enoxaparin Sodium (Lovenox) 40 mg SC DAILY [facility] Last Admin: 12/12/19 10:56 Dose: Not Given Documented by: Famotidine (Pepcid) 20 mg PO DAILY [facility] Last Admin: 12/12/19 10:55 Dose: 20 mg Documented by: Sodium Chloride () 1,000 mls @ 75 mls/hr IV .[id number] [facility] Last Admin: 12/12/19 00:57 Dose: 75 mls/hr Documented by: Ketorolac Tromethamine (Toradol (Bkc)) 15 mg IV Q8H PRN PRN PRN Reason: Pain Score 1-10/10 Stop: 12/14/19 18:21 Lisinopril (Zestril) 20 mg PO DAILY [facility] Last Admin: 12/12/19 10:56 Dose: 20 mg Documented by: Morphine Sulfate () 1 mg IV Q3H PRN PRN PRN Reason: Pain Score 6-10/10 Nutritional Formula (Lactose Free) (Ensure Enlive) 120 ml PO 4X/DAY [facility] Last Admin: 12/12/19 10:56 Dose: Not Given Documented by: Ondansetron HCl (Zofran) 4 mg IV Q6H PRN PRN PRN Reason: NAUSEA Oxycodone HCl (Oxyir) 5 mg PO Q6H PRN PRN PRN Reason: Pain Score 6-10/10 Sodium Chloride () 10 - 40 ml IV UD PRN PRN Reason: SALINE FLUSH Last Admin: 12/09/19 21:19 Dose: 10 ml Documented by: Medical Necessity - Tobacco Use Smoking Status: Former smoker Tobacco Use: Cigarettes Assessment/Plan All Active Problems Contusion, hip (Acute) Depression (Acute) Insomnia (Acute) Anxiety (Acute) Physical debility (Acute) Right middle cerebral artery stroke (Acute) 1. Intractable left hip pain secondary to mechanical fall prior to admission with general debility-hip and pelvis x-ray normal. CT lower extremity showed degenerative changes left hip without fracture or dislocation. PT/OT. PRN pain regimen. Fall precautions. SNF Saturday. 2. History of right MCA CVA-chronic left-sided hemiplegia. Worsened by #1. Continue Plavix, statin. 3. Hypertension-stable, continue Norvasc, lisinopril. 4. Hyperlipidemia-continue statin. 5. GERD-continue famotidine. DVT prophylaxis- Lovenox ne Discharge planning: Plan for [facility] Saturday. This patient was seen by NOAH Grier under the supervision of Dr. Velasquez. <Jacob Velasquez - Last Filed: 12/12/19 13:34> Subjective: Patient stated he walked 5 steps yesterday. Pain is better. - Physical Exam Vitals/I&O's: Vital Signs Temp Pulse Resp BP Pulse Ox 98.1 F 63 18 130/68 H 100 12/12/19 10:30 12/12/19 10:30 12/12/19 10:30 12/12/19 10:30 12/12/19 10:30 Oxygen Flow Rate (L/min) 96 Oxygen Delivery Method Room Air Weight: 169 lb 5.04 oz Body Mass Index (BMI) 23.6 Finger Stick Blood Glucose 109 Intake and Output for Last 24 Hours 12/10/19 12/11/19 12/12/19 23:59 23:59 23:59 Intake Total 2523.75 / 2523.75 2900 / 3100 1322.5 / 1322.5 Output Total 125 / 125 1550 / 1550 Balance 2398.75 / 2398.75 1350 / 1550 1322.5 / 1322.5 General: Alert, Oriented x3, Cooperative HEENT: Atraumatic, PERRLA, EOMI, Normocephalic Neck: Supple, No JVD, Negative Carotid Bruits Lungs: Clear to auscultation, No rhonchi, No wheeze, No rales, Diminished Cardiovascular: Regular rate, Normal S1, Normal S2, No murmurs Abdomen: Bowel Sounds Present, Soft, Non Tender, - Extremities: No edema, Capillary Refill Less than 3 Seconds Skin: No rashes, No breakdown Musculoskeletal: No Tenderness to Palpation of Joints or Extremities, Arthritic Changes, - - Mild weakness in left lower leg Neurological: Cranial nerves II-XII grossly intact, Deep Tendon Reflexes 2+/4 and Symmetrical, Neuro grossly intact Psych/Mental Status: Normal Affect, Appropriate Current Medications Acetaminophen (Tylenol) 1,000 mg PO Q8 [facility] Last Admin: 12/12/19 06:10 Dose: 1,000 mg Documented by: Amlodipine Besylate (Norvasc) 5 mg PO DAILY [facility] Last Admin: 12/12/19 10:55 Dose: 5 mg Documented by: Atorvastatin Calcium (Lipitor) 80 mg PO QHS [facility] Last Admin: 12/11/19 22:24 Dose: 80 mg Documented by: Calamine/Phenol (Calmoseptine Ointment) 1 applic TOPICAL BID [facility]; Protocol Last Admin: 12/12/19 10:55 Dose: 1 applicatio Documented by: Clopidogrel Bisulfate (Plavix) 75 mg PO DAILY [facility] Last Admin: 12/12/19 10:55 Dose: 75 mg Documented by: Enoxaparin Sodium (Lovenox) 40 mg SC DAILY [facility] Last Admin: 12/12/19 10:56 Dose: Not Given Documented by: Famotidine (Pepcid) 20 mg PO DAILY [facility] Last Admin: 12/12/19 10:55 Dose: 20 mg Documented by: Sodium Chloride () 1,000 mls @ 75 mls/hr IV .[id number] [facility] Last Admin: 12/12/19 00:57 Dose: 75 mls/hr Documented by: Ketorolac Tromethamine (Toradol (Bkc)) 15 mg IV Q8H PRN PRN PRN Reason: Pain Score 1-10/10 Stop: 12/14/19 18:21 Lisinopril (Zestril) 20 mg PO DAILY [facility] Last Admin: 12/12/19 10:56 Dose: 20 mg Documented by: Morphine Sulfate () 1 mg IV Q3H PRN PRN PRN Reason: Pain Score 6-10/10 Nutritional Formula (Lactose Free) (Ensure Enlive) 120 ml PO 4X/DAY [facility] Last Admin: 12/12/19 10:56 Dose: Not Given Documented by: Ondansetron HCl (Zofran) 4 mg IV Q6H PRN PRN PRN Reason: NAUSEA Oxycodone HCl (Oxyir) 5 mg PO Q6H PRN PRN PRN Reason: Pain Score 6-10/10 Sodium Chloride () 10 - 40 ml IV UD PRN PRN Reason: SALINE FLUSH Last Admin: 12/09/19 21:19 Dose: 10 ml Documented by: Assessment/Plan This patient was seen in conjunction with Lotus ISABEL. I have independently interviewed and examined the patient and reviewed pertinent history, examination findings, laboratory and plan of management. I have reviewed the note and agree with the documented findings with the few additional points. In brief, patient is admitted for intractable left hip pain and inability to bear weight secondary to fall. Patient had x-ray hip and pelvis followed by CT scan lower extremity was negative for fracture dislocation but degenerative changes suggestive of left hip arthritis. On pain medication and muscle relaxant. PT and OT to eval. Patient has systolic murmur over aortic valve and left lower sternal border most probably aortic stenosis; grade 3/6 therefore most probably mild to moderate aortic stenosis and/or TR. Patient was advised to have outpatient echo, to be ordered by PCP. Patient does not have shortness of breath, chest pain, leg edema or dyspnea on exertion to suggest severe valvular abnormality or heart failure Patient has history of mild left-sided weakness secondary to right MCA chronic infarct. No change. Continue patient home medication Plavix and statin. Other comorbidities as mentioned above. Plan is for discharge tomorrow a.m. to [facility] I have discussed my assessment with Lotus ISABEL and orders have been reviewed. Code Visit Inpatient E&M: 18594 Subs Hosp L2
[2019-12-12 17:25] VITALS: BP 152/73; PULSE 67; RESP 16; TEMP 36.4; O2SAT 97
[2019-12-12] MEDS: Atorvastatin Calcium 80 MG Tablet PO (22:27)
[2019-12-12 22:44] VITALS: BP 142/65; PULSE 66; RESP 16; TEMP 36.3; O2SAT 99
[2019-12-13 04:44] VITALS: BP 152/70; PULSE 64; RESP 16; TEMP 36.6; O2SAT 95
[2019-12-13] MEDS: Acetaminophen 500 MG Tablet 1000 MG PO (05:13)
--- NOTE | 2019-12-13 08:26 | TREXTCA.CO_ITS ---
- Diet 12/09/19 18:21 Diet: Cardiac/Low Cholesterol - Routine Orders/Code Status Enema Type: Fleetz Enema Frequency: Daily PRN Suppository Type: Dulcolax 10mg Suppository Frequency: Daily PRN Code Status: DNRCC - Wound(s) Lt elbow Wound Type: Abrasion Lt buttock Wound Type: Pressure Injury - Therapies Physical Therapy: Eval and Treat Occupational Therapy: Eval and Treat - Problem/Diagnosis (1) Contusion, hip Status: Acute Current Visit: Yes (2) Physical debility Status: Chronic Current Visit: Yes (3) HTN (hypertension) Status: Chronic Current Visit: No (4) Right middle cerebral artery stroke Status: Chronic Current Visit: No - Allergies/Procedures Done in Hospital Allergies/Adverse Reactions: Allergies No Known Allergies Allergy (Verified 12/03/13 11:24) Procedures: None - Type of Care/Length of Stay Estimated LOS: Convalescent Care Less Than 30 days Type of Care Needed: Skilled Rehab Potential: Fair Prognosis: Fair - Additional Orders/Day of Discharge H&P will serve as current which was dated: 12/09/19 Day of Discharge: 12/13/19 - Dietary and Speech Recommendations Dietitian Recommendations/Changes: Continue cardiac/low chol diet. 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 Will defer Ramez for now due to pt willingness to take 4-5 ensures daily; will monitor need for Ramez if PO of ONS declines. - Follow Up Care Primary Care Physician: Kenny Martini MD [Primary Care Provider] - Please follow up with your Primary Care Physician in: 1 Week
--- NOTE | 2019-12-13 08:29 | DS.PCM_ITS ---
<Lotus Saeed - Last Filed: 12/13/19 08:32> Discharge Date and Diagnosis Date of Admission: 12/09/19 Date of Discharge: 12/13/19 - Primary Discharge Diagnosis Active and Suspected Problems 1. Intractable left hip pain secondary to mechanical fall prior to admission with general debility 2. History of right MCA CVA-chronic left-sided hemiplegia. 3. Hypertension 4. Hyperlipidemia 5. GERD - Secondary Discharge Diagnosis Chronic Problems Physical debility (Chronic) HTN (hypertension) (Chronic) Right middle cerebral artery stroke (Chronic) Dyslipidemia (Chronic) Hospital Course and Treatment Imaging Results: Diagnostic Data Chest X-Ray 12/09/19 13:15 IMPRESSION: Normal portable chest. Electronically Signed: Greg Roberts at 14:11 EST Tel , Service support , Hip/Pelvis X-Ray 12/09/19 13:15 IMPRESSION: Normal pelvis and left hip. 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 Electronically Signed: Greg Roberts at 14:04 EST Tel , Service support , Lower Extremity CT 12/09/19 15:27 IMPRESSION: 1. Degenerative changes of the left hip without fracture or dislocation. 2. Left inguinal hernia containing the left testicle. Electronically Signed: Riky Ford DO at 17:58 EST Tel [phone], Service support , Operations: None Procedures: None Summary of Care Provided: The patient is a 74 year old M admitted 12/09/2019 due to left hip pain. 1. Intractable left hip pain secondary to mechanical fall prior to admission with general debility-hip and pelvis x-ray normal. CT lower extremity showed degenerative changes left hip without fracture or dislocation. PRN pain regimen. Fall precautions. SNF for further PT/OT. 2. History of right MCA CVA-chronic left-sided hemiplegia. Worsened by #1. Continue Plavix, statin. 3. Hypertension-stable, continue Norvasc, lisinopril. 4. Hyperlipidemia-continue statin. 5. GERD-continue famotidine. General: Alert, Oriented x3, Cooperative HEENT: Atraumatic, PERRLA, EOMI, Normocephalic Neck: Supple, No JVD, Negative Carotid Bruits Lungs: Clear to auscultation, Normal air movement Cardiovascular: Regular rate, Regular Rhythm, Normal S1, Normal S2, No murmurs Abdomen: Bowel Sounds Present, Soft, Non Tender, Non-Distended Extremities: No clubbing, No cyanosis, No edema Skin: No rashes, No breakdown Musculoskeletal: No Tenderness to Palpation of Joints or Extremities Neurological: Cranial nerves II-XII grossly intact, Neuro grossly intact Psych/Mental Status: Normal Affect, Appropriate Patient seen and examined prior to discharge. Physical assessment as noted above. Patient is stable for discharge with follow up recommendations as noted above. This patient was seen by NOAH Grier under the supervision of Dr. Velasquez. - Physical Exam Vitals/I&O's: Vital Signs Temp Pulse Resp BP Pulse Ox 97.8 F 64 16 152/70 H 95 12/13/19 04:44 12/13/19 04:44 12/13/19 04:44 12/13/19 04:44 12/13/19 04:44 Oxygen Flow Rate (L/min) 96 Oxygen Delivery Method Room Air Weight: 169 lb 5.04 oz Body Mass Index (BMI) 23.6 Finger Stick Blood Glucose 109 Intake and Output for Last 24 Hours 12/11/19 12/12/19 12/13/19 23:59 23:59 23:59 Intake Total 2900 / 3100 2961.25 / 3261.25 450 / 450 Output Total 1550 / 1550 500 / 500 Balance 1350 / 1550 2961.25 / 2761.25 -50 / -50 Current Medications Acetaminophen (Tylenol) 1,000 mg PO Q8 [facility] Last Admin: 12/13/19 05:13 Dose: 1,000 mg Documented by: Amlodipine Besylate (Norvasc) 5 mg PO DAILY [facility] Last Admin: 12/12/19 10:55 Dose: 5 mg Documented by: Atorvastatin Calcium (Lipitor) 80 mg PO QHS [facility] Last Admin: 12/12/19 22:27 Dose: 80 mg Documented by: Calamine/Phenol (Calmoseptine Ointment) 1 applic TOPICAL BID [facility]; Protocol Last Admin: 12/12/19 22:26 Dose: 1 applicatio Documented by: Clopidogrel Bisulfate (Plavix) 75 mg PO DAILY [facility] Last Admin: 12/12/19 10:55 Dose: 75 mg Documented by: Enoxaparin Sodium (Lovenox) 40 mg SC DAILY [facility] Last Admin: 12/12/19 10:56 Dose: Not Given Documented by: Famotidine (Pepcid) 20 mg PO DAILY [facility] Last Admin: 12/12/19 10:55 Dose: 20 mg Documented by: Ketorolac Tromethamine (Toradol (Bkc)) 15 mg IV Q8H PRN PRN PRN Reason: Pain Score 1-10/10 Stop: 12/14/19 18:21 Lisinopril (Zestril) 20 mg PO DAILY [facility] Last Admin: 12/12/19 10:56 Dose: 20 mg Documented by: Morphine Sulfate () 1 mg IV Q3H PRN PRN PRN Reason: Pain Score 6-10/10 Nutritional Formula (Lactose Free) (Ensure Enlive) 120 ml PO 4X/DAY [facility] Last Admin: 12/12/19 22:26 Dose: 120 ml Documented by: Ondansetron HCl (Zofran) 4 mg IV Q6H PRN PRN PRN Reason: NAUSEA Oxycodone HCl (Oxyir) 5 mg PO Q6H PRN PRN PRN Reason: Pain Score 6-10/10 Sodium Chloride () 10 - 40 ml IV UD PRN PRN Reason: SALINE FLUSH Last Admin: 12/09/19 21:19 Dose: 10 ml Documented by: Home Medications: Medications to take at Discharge Atorvastatin Calcium [Lipitor] 80 mg PO QHS #1 tablet 02/02/14 Amlodipine [Norvasc] 5 mg PO DAILY #30 tablet 02/25/14 Lisinopril [Zestril] 20 mg PO DAILY #30 tablet 02/25/14 Clopidogrel Bisulfate [Plavix] 75 mg PO DAILY #30 tablet 03/31/14 Acetaminophen [Tylenol] 1,000 mg PO Q6H PRN PRN 12/09/19 Famotidine 20 mg PO DAILY 12/09/19 Primary Care Physician: Kenny Martini MD [Primary Care Provider] - Please follow up with your Primary Care Physician in: 1 Week Disposition: Custodial facility Minutes spent on discharge:: 35 Patient Condition:: Stable Medical Necessity - Tobacco Use Smoking Status: Former smoker Tobacco Use: Cigarettes Meaningful Use Info Meaningful Use Diagnoses (Choose all that apply): None applicable <Jacob Velasquez - Last Filed: 12/13/19 12:32> Discharge Date and Diagnosis - Secondary Discharge Diagnosis Chronic Problems Physical debility (Chronic) HTN (hypertension) (Chronic) Right middle cerebral artery stroke (Chronic) Dyslipidemia (Chronic) Hospital Course and Treatment Summary of Care Provided: This patient was seen in conjunction with Lotus ISABEL. I have independently interviewed and examined the patient and reviewed pertinent history, examination findings, laboratory and plan of management. I have reviewed the note and agree with the documented findings with the few additional points. In brief, patient is admitted for intractable left hip pain and inability to bear weight secondary to fall. Patient had x-ray hip and pelvis followed by CT scan lower extremity was negative for fracture dislocation but degenerative changes suggestive of left hip arthritis. On pain medication and muscle relaxant. PT and OT to eval. Patient has systolic murmur over aortic valve and left lower sternal border most probably aortic stenosis; grade 3/6 therefore most probably mild to moderate aortic stenosis and/or TR. Patient was advised to have outpatient echo, to be ordered by PCP. Patient does not have shortness of breath, chest pain, leg edema or dyspnea on exertion to suggest severe valvular abnormality or heart failure Patient has history of mild left-sided weakness secondary to right MCA chronic infarct. No change. Continue patient home medication Plavix and statin. Other comorbidities as mentioned above. Discharge medication reconciliation done. Discharge follow-up instructions completed. Discharge process discussed with the patient and all questions were answered to patient's satisfaction. Total time spent, exact 35 minutes on discharge meds reconciliation, examination, coordination of care with nurses and ancillary staff, review of imaging and blood test and discussion with the patient on follow-up instructions I have discussed my assessment with Lotus ISABEL and orders have been reviewed. [] Subjective: Seen and examined. Patient leg pain/hip pain is much better. Able to move his leg. Leg is still weak but strength is improved since admission. Objective: General: Alert, Oriented x3, Cooperative HEENT: Atraumatic, PERRLA, EOMI, Normocephalic Neck: Supple, No JVD, Negative Carotid Bruits Lungs: Clear to auscultation, No rhonchi, No wheeze, No rales, Diminished Cardiovascular: Regular rate, Normal S1, Normal S2, No murmurs Abdomen: Bowel Sounds Present, Soft, Non Tender, - Extremities: No edema, Capillary Refill Less than 3 Seconds Skin: No rashes, scab over the left elbow point after fall. No open ulcer. Musculoskeletal: No Tenderness to Palpation of Joints or Extremities, Arthritic Changes, Mild weakness in left hip and knee joints and ankle joint, 4/5, improved since admission. Chronic left upper extremity weakness and contracture at the shoulder, elbow and wrist joint after stroke. Neurological: Cranial nerves II-XII grossly intact, Deep Tendon Reflexes 2+/4 and Symmetrical, Neuro grossly intact Psych/Mental Status: Normal Affect, Appropriate - Physical Exam Vitals/I&O's: Vital Signs Temp Pulse Resp BP Pulse Ox 99.0 F 67 18 150/69 H 99 12/13/19 09:14 12/13/19 09:14 12/13/19 09:14 12/13/19 09:14 12/13/19 09:14 Oxygen Flow Rate (L/min) 96 Oxygen Delivery Method Room Air Weight: 169 lb 5.04 oz Body Mass Index (BMI) 23.6 Finger Stick Blood Glucose 109 Intake and Output for Last 24 Hours 12/11/19 12/12/19 12/13/19 23:59 23:59 23:59 Intake Total 2900 / 3100 2961.25 / 3261.25 450 / 450 Output Total 1550 / 1550 500 / 500 Balance 1350 / 1550 2961.25 / 2761.25 -50 / -50 Current Medications Acetaminophen (Tylenol) 1,000 mg PO Q8 [facility] Last Admin: 12/13/19 05:13 Dose: 1,000 mg Documented by: Amlodipine Besylate (Norvasc) 5 mg PO DAILY [facility] Last Admin: 12/13/19 09:17 Dose: 5 mg Documented by: Atorvastatin Calcium (Lipitor) 80 mg PO QHS [facility] Last Admin: 12/12/19 22:27 Dose: 80 mg Documented by: Calamine/Phenol (Calmoseptine Ointment) 1 applic TOPICAL BID [facility]; Protocol Last Admin: 12/13/19 09:15 Dose: 1 applicatio Documented by: Clopidogrel Bisulfate (Plavix) 75 mg PO DAILY [facility] Last Admin: 12/13/19 09:18 Dose: 75 mg Documented by: Enoxaparin Sodium (Lovenox) 40 mg SC DAILY [facility] Last Admin: 12/13/19 09:23 Dose: Not Given Documented by: Famotidine (Pepcid) 20 mg PO DAILY [facility] Last Admin: 12/13/19 09:18 Dose: 20 mg Documented by: Ketorolac Tromethamine (Toradol (Bkc)) 15 mg IV Q8H PRN PRN PRN Reason: Pain Score 1-10/10 Stop: 12/14/19 18:21 Lisinopril (Zestril) 20 mg PO DAILY [facility] Last Admin: 12/13/19 09:18 Dose: 20 mg Documented by: Morphine Sulfate () 1 mg IV Q3H PRN PRN PRN Reason: Pain Score 6-10/10 Nutritional Formula (Lactose Free) (Ensure Enlive) 120 ml PO 4X/DAY [facility] Last Admin: 12/13/19 09:19 Dose: Not Given Documented by: Ondansetron HCl (Zofran) 4 mg IV Q6H PRN PRN PRN Reason: NAUSEA Oxycodone HCl (Oxyir) 5 mg PO Q6H PRN PRN PRN Reason: Pain Score 6-10/10 Sodium Chloride () 10 - 40 ml IV UD PRN PRN Reason: SALINE FLUSH Last Admin: 12/09/19 21:19 Dose: 10 ml Documented by: Code Visit Inpatient E&M: [id number] Disch Hosp
[2019-12-13 09:14] VITALS: BP 150/69; PULSE 67; RESP 18; TEMP 37.2; O2SAT 99
[2019-12-13] MEDS: Menthol/Lanolin/Calamine/Znox 113 GM Tube 1 APPLIC TOPICAL (09:15)
[2019-12-13] MEDS: amLODIPine 5 MG Tablet PO (09:17)
[2019-12-13] MEDS: Lisinopril 20 MG Tablet PO (09:18)
[2019-12-13] MEDS: Famotidine 20 MG Tablet PO (09:18)
[2019-12-13] MEDS: Clopidogrel Bisulfate 75 MG Tablet PO (09:18)
[2019-12-13 12:36] VITALS: BP 141/54; PULSE 64; RESP 16; TEMP 37.3; O2SAT 98
== END 2019-12-13 13:13 | disposition skilled nursing facility (03) | DRG 556 ==
LOC: ED 15:47 → MS3 17:27
PROVIDERS: Admitting Provider Physician Assistant; Emergency Provider Emergency Medicine; PCP Family Medicine; Visit Provider Internal Medicine
DX: M25.552 Pain in left hip (principal); I69.354 Hemiplegia and hemiparesis following cerebral infarction affecting left non-dominant side; S70.02XA Contusion of left hip, initial encounter; M16.12 Unilateral primary osteoarthritis, left hip; R53.81 Other malaise; W19.XXXA Unspecified fall, initial encounter; Y93.9 Activity, unspecified; Y92.9 Unspecified place or not applicable; I10 Essential (primary) hypertension; E78.5 Hyperlipidemia, unspecified; K21.9 Gastro-esophageal reflux disease without esophagitis; Z87.891 Personal history of nicotine dependence; Z66 Do not resuscitate; M19.012 Primary osteoarthritis, left shoulder; F32.9 Major depressive disorder, single episode, unspecified; F41.9 Anxiety disorder, unspecified; Z79.02 Long term (current) use of antithrombotics/antiplatelets; Z79.899 Other long term (current) drug therapy; I35.0 Nonrheumatic aortic (valve) stenosis
CPT/HCPCS: 71045; 73030; 73502; 73700; 80053; 85025; 90471; 93005; 97116; 97162; 97167; 97530; 97535; 97802; 99285; J7030; A4216

== ENCOUNTER → 2022-01-23 | Outpatient (CLI) | payer MEDICARE, BC, SELFPAY ==
[2022-01-23 15:57] LABS: Anion Gap 7 (5-15); BUN 6 mg/dL (7-18); BUN/Creat Ratio 7.2 RATIO (10-20); Calcium,Total 9.4 mg/dL (8.5-10.1); Chloride 94 mmol/L (98-107); Cholesterol 97 mg/dL (200); Creatinine, Serum 0.83 mg/dL (0.70-1.30); EST Glomerular Filtration Rate 95 mL/min (>60); Est Glom Filt Rate - Afr Amer 115 mL/min (>60); Glucose 90 mg/dL (74-106); High Density Lipoprotein 50 mg/dL; Potassium 3.9 mmol/L (3.5-5.1); Sodium Level 130 mmol/L (136-145); Triglycerides 131 mg/dL; Very Low Density Lipoprotein 26 mg/dL (5-40)
== END | disposition home or self-care (01) ==
PROVIDERS: PCP Family Medicine; Referring Provider Family Medicine; Visit Provider Family Medicine
DX: I10 Essential (primary) hypertension (principal)
CPT/HCPCS: 36415; 80048; 80061

== ENCOUNTER 2022-02-08 18:20 | Observation (INO) | payer MEDICARE, BC, SELFPAY ==
[2022-02-08 18:21] VITALS: BP 131/49; PULSE 113; RESP 26; TEMP 37.6; O2SAT 97; BMI 24.3
--- NOTE | 2022-02-08 18:27 | EKG12_ITS ---
Test Reason : DYSRHYTHMIA Blood Pressure : / mmHG Vent. Rate : 103 BPM Atrial Rate : 147 BPM P-R Int : 158 ms QRS Dur : 090 ms QT Int : 326 ms P-R-T Axes : 009 000 013 degrees QTc Int : 427 ms Sinus tachycardia with frequent Premature ventricular complexes Abnormal ECG Confirmed by SHELBY HECTOR, STEVAN ([id number]), make up editor MARVEL ALCOCER ([id number]) on 02/12/2022 1:27:58 PM Referred By: HANK Confirmed By:STEVAN RYAN MD
[2022-02-08 18:35] LABS: Absolute Lymphocyte Count 1.86 X10^3/uL (0.83-4.51); Absolute Neutrophil Count 11.7 X10^3/uL (2.0-7.7); Basophil# 0.04 X10^3/uL; Basophil% 0.3 % (0-1); Eosinophil# 0.05 X10^3/uL; Eosinophils% 0.3 % (0-5); Hematocrit 43.7 % (40-54); Hemoglobin 14.6 g/dL (13.0-16.5); Lymphocyte # 1.86 X10^3/ul (0.83-4.51); Lymphocyte % 12.6 % (19-41); Mean Corp Hgb Conc 33.4 g/dL (32-36); Mean Corpuscular Hgb 31.5 pg (27.0-32.0); Mean Corpuscular Volume 94.2 fL (80-94); Mean Platelet Vol. 9.1 fl (6.2-12.0); Monocyte# 1.12 X10^3/uL; Monocyte% 7.6 % (0-10); NRBC Flagged by Analyzer 0 % (0-5); Neutrophil # 11.69 X10^3/uL (2.7-7.7); Neutrophil % 78.9 % (47-70); Platelet Count 251 K/mm3 (150-450); RBC Distribution Width SD 44.5 fl (35.1-43.9); Red Blood Count 4.64 M/mm3 (4.6-6.2); White Blood Count 14.8 K/mm3 (4.4-11.0)
--- NOTE | 2022-02-08 18:36 | EDS_ITS ---
HPI History of Present Illness Chief Complaint: General Illness Detail of Chief Complaint: Generalized weakness Informant: patient and spouse/S.O. Onset/Context/Timing Onset: Days Context: Gradual Onset Timing: Continuous Current Severity: Mild Maximum Severity: Mild Narrative Narrative: 76-year-old male had a stroke in 2013 which left him paralyzed in his left arm and leg. Lives at home with his . She states she has been getting weaker over the last 7 to 10 days. He has not been recently ill. Has not been recently hospitalized. He denies any chest pain, shortness of breath abdominal pain. He denies any fever or chills. He denies any dysuria or melena. Today was in the bathroom shaving discussed so tired he basically lowered himself to the ground and was unable to get up. Squad was called he was brought in the hospital. Prior similar symptoms: No Recent Illness/Hospitalization: No PFSH PFSH Home Medications atorvastatin 80 mg PO QHS #1 tablet 02/02/14 [Rx Last Taken 12/08/19] amlodipine 5 mg PO DAILY #30 tablet 02/25/14 [Rx Last Taken 12/08/19] lisinopril 20 mg PO DAILY #30 tablet 02/25/14 [Rx Last Taken 12/08/19] clopidogrel 75 mg PO DAILY #30 tablet 03/31/14 [Rx Last Taken 12/08/19] acetaminophen 1,000 mg PO Q6H PRN PRN 12/09/19 [History Last Taken 12/08/19] famotidine 20 mg PO DAILY 12/09/19 [History Last Taken 12/08/19] Allergy/AdvReac Type Severity Reaction Status Date / Time No Known Allergies Allergy Verified 12/03/13 11:24 Social History Smoking Status: Former smoker ROS ROS ED ROS Narrative Weakness. Review of Systems ROS Unobtainable: Denies due to encephalopathy Constitutional Constitutional ED: Denies fever(s) Eyes Eyes: Denies change in vision ENT ENT ED: Denies ear pain Cardiovascular Cardiovascular: Denies chest pain Respiratory/Chest Respiratory/Chest: Denies dyspnea Gastrointestinal Gastrointestinal: Denies abdominal pain Genitourinary Genitourinary ED: Denies dysuria Musculoskeletal Musculoskeletal: Denies myalgias Integumentary Denies rash Neurologic Neurologic: Denies headache(s) Psychiatric Psychiatric: Denies depression Endocrine Endocrinology: Denies polyuria Allergic/Immunologic Allergic/Immunologic ED: Denies urticaria EXAM Physical Exam Narrative Exam Narrative: 68-year-old male no acute distress vital signs stable he does have a low-grade temperature nine 9.7. He does not look septic or toxic. HEENT exam unremarkable. Atraumatic. Pupils round reactive light. Moist extremities. Neck nontender no lymphadenopathy. Lungs clear to auscultation. Heart irregularly irregular 3 or 6 stock ejection murmur. Appears to have A. fib. Chest were nontender. Abdomen soft nontender. Pelvic girdle intact. Paralyzes left arm and left leg. There is no tenderness or deformity either upper or lower extremity. He has normal strength in the right arm and right leg. Back nontender. Neurologically is awake and alert. He is paralyzed on the left side which is from a prior stroke 8 years ago. Const Vital Signs: 02/08/22 18:21 02/08/22 18:27 Temperature 99.7 F H Temperature Source Oral Pulse Rate 113 H Respiratory Rate 26 H Respiratory Effort Normal Respiratory Pattern Normal Blood Pressure 131/49 H Blood Pressure Mean 76 Pulse Ox 97 Oxygen Delivery Method Room Air Positive well nourished and well developed; Negative for obese, cachectic, contractures or unkempt General Appearance ED: well developed and NAD; Negative for unkempt, cachectic, contractures, cyanotic or diaphoretic Nutritional Appearance: Negative for cachectic or obese HEENT Reports moist mucous membranes Negative for trauma or tenderness Eyes PERRL and EOMs intact bilaterally General Eye ED: Negative for pale conjunctiva or scleral icterus Neck no lymphadenopathy, supple and no JVD General: Negative for tenderness Chest Wall inspection of chest normal and palpation of chest normal Resp normal respiratory effort and clear to auscultation bilaterally Auscultation: Negative for rales, rhonchi or wheezes Cardio Negative for regular rate, regular rhythm or no murmurs Rate: tachycardic Rhythm: abnormal rhythm GI normal to inspection, nondistended, normoactive bowel sounds, non-tender, non- distended and no masses Inspection: Negative for abdominal distention Auscultation: normoactive bowel sounds Palpation: soft; Negative for tender, guarding or rebound tenderness present Back/Spine no CVA tenderness General Back: Negative for CVA tenderness Cervical Spine: Negative for cervical spine tenderness Thoracic Spine / Upper Back: Negative for thoracic spinal tenderness Lumbar Spine / Lower Back: Negative for lumbar spinal tenderness Extremity normal to inspection Extremity Narrative: Left arm and leg paralysis. General Extremety ED: Negative for edema or tenderness General Extremity: Negative for edema Neuro oriented x3 Neuro Narrative: Left upper and lower extremity paralysis and arthritis stroke. Sensorium / Orientation: alert; Negative for orientation impaired, lethargic or stuporous Motor Exam: Negative for strength 5/5 throughout Psych mental status grossly normal Appearance: Negative for unkempt Attitude: No agitated Mood & Affect: Negative for depressed or tearful Skin no rashes or lesions noted and no wounds MDM MDM MDM Narrative Medical decision making narrative: Seven 6-year-old old male with generalized weakness. Prior stroke with left-sided paralysis. Today he was so weak he was unable to walk about the house saturating fell in the bathroom. Repeat exam unchanged at 7:35 PM. I went over all test results with the patient and his . He is unable to stand he is too weak will need to be admitted for further evaluation. Lab Data Attestation: I reviewed the patient's lab results. Lab results narrative: CBC shows a white count of 14.8. H&H 14 and 43. Chemistry shows sodium of 130. Gap of 8 normal BUN and creatinine. Glucose 120. Liver enzymes unremarkable. Troponin is normal. TSH normal at 1.18. Urinalysis is negative. Labs: Laboratory Results - last 24 hr 02/08/22 02/08/22 02/08/22 18:30 18:30 18:30 WBC 14.8 H RBC 4.64 Hgb 14.6 Hct 43.7 MCV 94.2 H MCH 31.5 MCHC 33.4 RDW Std Deviation 44.5 H RDW Coeff of [place] 13.0 Plt Count 251 MPV 9.1 Immature Gran % (Auto) 0.300 Neut % (Auto) 78.9 H Lymph % (Auto) 12.6 L [place] % (Auto) 7.6 Eos % (Auto) 0.3 Baso % (Auto) 0.3 Absolute Neuts (auto) 11.7 H Absolute Lymphs (auto) 1.86 Nucleated RBC % 0 Sodium 130 L Potassium 4.0 Chloride 95 L Carbon Dioxide 27.0 Anion Gap 8 BUN 12 Creatinine 1.12 Estim Creat Clear Calc 57.89 Est GFR (MDRD) Af Amer 82 Est GFR (MDRD) Non-Af 67 BUN/Creatinine Ratio 10.7 Glucose 120 H Calcium 9.6 Total Bilirubin 1.90 H AST 30 ALT 23 Alkaline Phosphatase 87 Troponin I High Sens 24 Total Protein 8.1 Albumin 3.7 Globulin 4.4 H Albumin/Globulin Ratio 0.8 L TSH 1.18 Urine Color Urine Clarity Urine pH Ur Specific [place] Urine Protein Urine Glucose (UA) Urine Ketones Urine Occult Blood Urine Nitrite Urine Bilirubin Urine Urobilinogen Ur Leukocyte Esterase Urine RBC Urine WBC Ur Squamous Epith Cells Urine Bacteria Urine Mucus 02/08/22 18:50 WBC RBC Hgb Hct MCV MCH MCHC RDW Std Deviation RDW Coeff of [place] Plt Count MPV Immature Gran % (Auto) Neut % (Auto) Lymph % (Auto) [place] % (Auto) Eos % (Auto) Baso % (Auto) Absolute Neuts (auto) Absolute Lymphs (auto) Nucleated RBC % Sodium Potassium Chloride Carbon Dioxide Anion Gap BUN Creatinine Estim Creat Clear Calc Est GFR (MDRD) Af Amer Est GFR (MDRD) Non-Af BUN/Creatinine Ratio Glucose Calcium Total Bilirubin AST ALT Alkaline Phosphatase Troponin I High Sens Total Protein Albumin Globulin Albumin/Globulin Ratio TSH Urine Color Yellow Urine Clarity Sl. Cloudy Urine pH 6.0 Ur Specific [place] 1.020 Urine Protein 15 H Urine Glucose (UA) Normal Urine Ketones Negative Urine Occult Blood Negative Urine Nitrite Negative Urine Bilirubin Negative Urine Urobilinogen Normal Ur Leukocyte Esterase 25 H Urine RBC 0 SEEN Urine WBC 0 SEEN Ur Squamous Epith Cells 0-5 SEEN Urine Bacteria 0 SEEN Urine Mucus 0 SEEN Radiography Chest X-Ray - ED: 1 View and Read by ED Physician Diagnostic Testing: Clinical Impression(s) from Imaging Studies Chest X-Ray 02/08/22 18:42 IMPRESSION: No radiographic evidence of acute cardiopulmonary disease. Electronically Signed: Maverick Garber MD at 19:05 EDT , Chest x-ray, portable, single view interpreted by myself and radiologist shows no acute process. Rhythm Strip Rhythm Strip: Sinus Rhythm Rate: 103 Ectopy: PVC(s) EKG Initial EKG: Attestation: I personally reviewed and interpreted this EKG as follows: Interpretation: Sinus Rhythm, No Acute Injury Pattern and Sinus Tachycardia Comments: Sinus tachycardia rate of 103. PVCs. Discharge Plan Triage Chief Complaint: General Illness ED Provider: Shaan Carty Dx/Rx/DC Orders Clinical Impression: Fall, Generalized weakness, Unable to ambulate, History of stroke Prescriptions: No Action atorvastatin 80 MG tablet 80 mg PO QHS Qty: 1 RF: 0 lisinopril 20 MG tablet 20 mg PO DAILY Qty: 30 RF: 0 amlodipine 5 MG tablet 5 mg PO DAILY Qty: 30 RF: 0 clopidogrel 75 MG tablet 75 mg PO DAILY Qty: 30 RF: 0 acetaminophen 500 MG tablet 1,000 mg PO Q6H PRN PRN (Reason: Not Specified) RF: 0 famotidine 20 MG tablet 20 mg PO DAILY RF: 0 Primary Care Provider: Kenny Martini Referrals: Kenny Martini MD [Primary Care Provider] - Disposition Disposition: Acute Care Hospital [facility]
--- NOTE | 2022-02-08 18:42 | RAD_ITS ---
EXAM: XR CHEST, 1 VIEW CLINICAL INDICATION: weakness TECHNIQUE: Frontal view of the chest. This report was created using [employer] report generation technology. COMPARISON: 12/09/2019 FINDINGS: LUNGS AND PLEURAL SPACES: Unremarkable. No consolidation or edema. No pneumothorax. No effusion. HEART: Unremarkable. Cardiac silhouette not enlarged. MEDIASTINUM: Central airways and mediastinal contour are unremarkable. BONES/JOINTS: Unremarkable. SOFT TISSUES: Unremarkable. RAD/Chest 1 View (Portable) IMPRESSION: No radiographic evidence of acute cardiopulmonary disease. Electronically Signed: Maverick Garber MD at 19:05 EDT ,
[2022-02-08 18:51] LABS: ALB/GLOB Ratio 0.8 RATIO (0.9-2.4); AST(SGOT) 30 U/L (15-37); Alanine Aminotransfer ALT/SGPT 23 U/L (16-61); Albumin, Serum 3.7 g/dL (3.2-5.0); Alkaline Phosphatase 87 U/L (45-117); Anion Gap 8 (5-15); BUN 12 mg/dL (7-18); BUN/Creat Ratio 10.7 RATIO (10-20); Calcium,Total 9.6 mg/dL (8.5-10.1); Chloride 95 mmol/L (98-107); Creatinine, Serum 1.12 mg/dL (0.70-1.30); EST Glomerular Filtration Rate 67 mL/min (>60); Est Glom Filt Rate - Afr Amer 82 mL/min (>60); Estimated Creatinine Clearance 57.89 ml/min; Globulin 4.4 g/dL (2.2-4.2); Glucose 120 mg/dL (74-106); Protein, Total 8.1 g/dL (6.4-8.2); Sodium Level 130 mmol/L (136-145)
[2022-02-08 19:01] LABS: Thyroid Stim Hormone (TSH) 1.18 uIU/mL (0.358-3.74); Troponin-I HS 24 pg/mL (3.0-78.0)
--- NOTE | 2022-02-08 20:02 | PCM.HP.STD ---
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 Reportedly he was at the sink close to the toilet. He walked to the toilet and he could not walk thereafter secondary to weakness. Subsequently he fell. Reportedly in the past week and a half patient has been getting progressively weak. [facility] [place] Medical History Bleeding tendency Former smoker Stroke/cerebrovascular accident Home Medications atorvastatin 80 mg PO QHS #1 tablet 02/02/14 [Rx Last Taken 02/07/22] amlodipine 5 mg PO DAILY #30 tablet 02/25/14 [Rx Last Taken 02/08/22] lisinopril 20 mg PO DAILY #30 tablet 02/25/14 [Rx Last Taken 02/08/22] clopidogrel 75 mg PO DAILY #30 tablet 03/31/14 [Rx Last Taken 12/08/19] acetaminophen 1,000 mg PO Q6H PRN PRN 12/09/19 [History Last Taken 02/07/22] famotidine 20 mg PO DAILY 12/09/19 [History Last Taken 02/07/22] Allergy/AdvReac Type Severity Reaction Status Date / Time No Known Allergies Allergy Verified 12/03/13 11:24 Family History (Updated 02/08/22 @ 21:[address] Jimmie Hu MD) Other Cancer Surgical History History of appendectomy History of cholecystectomy Social History Smoking Status: Former smoker ROS ROS Narrative Pertinent positives and pertinent negatives as noted in HPI. All other systems were reviewed and are negative. Vital Signs Vital Signs Vital Signs: 02/08/22 18:21 02/08/22 18:27 Temperature 99.7 F H Temperature Source Oral Pulse Rate 113 H Respiratory Rate 26 H Respiratory Effort Normal Respiratory Pattern Normal Blood Pressure 131/49 H Blood Pressure Mean 76 Pulse Ox 97 Oxygen Delivery Method Room Air Weight Weight: 78.925 kg Body Mass Index (BMI) 24.3 Physical Exam Narrative Physical exam: General: Well-nourished, well-developed. Head: Normocephalic, atraumatic, no tenderness Eyes: Vision is grossly intact. EOMI ENT, no trauma, moist mucous membranes, no rhinorrhea Neck: Nontender, full range of motion, no spinal tenderness, deformities, step-off CVS: Regular rate and rhythm. S1-S2 present. No murmur, gallop or rub. Respiratory : clear to auscultation bilaterally, chest wall nontender, no wheezing Abdomen: Soft, nontender, nondistended, normal bowel sounds, no masses : Deferred Back: Nontender, no CVA tenderness, no midline spinal tenderness, deformities, step-offs Extremities: Nontender full range of motion, no trauma Skin: Normal color, no trauma, abrasions Neuro: Alert, oriented, cranial nerves II through XII grossly intact. Unable to move left upper extremity. Unable to move left leg. Can plantarflex left foot with strength of about 2 out of 5. Can move right upper and right lower extremity. Plantar flexion of right lower extremity 5 out of 5. Psychiatry: Normal mood. Normal affect. Not depressed. Not anxious. Results Lab / Micro Data Result Diagrams: 02/08/22 18:30 02/08/22 18:30 Labs: Laboratory Results - last 24 hr 02/08/22 18:30: WBC 14.8 H, RBC 4.64, Hgb 14.6, Hct 43.7, MCV 94.2 H, MCH 31.5, MCHC 33.4, RDW Std Deviation 44.5 H, RDW Coeff of [place]che 13.0, Plt Count 251, MPV 9.1, Immature Gran % (Auto) 0.300, Neut % (Auto) 78.9 H, Lymph % (Auto) 12.6 L, [place] % (Auto) 7.6, Eos % (Auto) 0.3, Baso % (Auto) 0.3, Absolute Neuts (auto) 11.7 H, Absolute Lymphs (auto) 1.86, Nucleated RBC % 0 02/08/22 18:30: Sodium 130 L, Potassium 4.0, Chloride 95 L, Carbon Dioxide 27.0, Anion Gap 8, BUN 12, Creatinine 1.12, Estim Creat Clear Calc 57.89, Est GFR (MDRD) Af Amer 82, Est GFR (MDRD) Non-Af 67, BUN/Creatinine Ratio 10.7, Glucose 120 H, Calcium 9.6, Total Bilirubin 1.90 H, AST 30, ALT 23, Alkaline Phosphatase 87, Total Protein 8.1, Albumin 3.7, Globulin 4.4 H, Albumin/Globulin Ratio 0.8 L 02/08/22 18:30: Troponin I High Sens 24, TSH 1.18 02/08/22 18:50: Urine Color Yellow, Urine Clarity Sl. Cloudy, Urine pH 6.0, Ur Specific [place] 1.020, Urine Protein 15 H, Urine Glucose (UA) Normal, Urine Ketones Negative, Urine Occult Blood Negative, Urine Nitrite Negative, Urine Bilirubin Negative, Urine Urobilinogen Normal, Ur Leukocyte Esterase 25 H, Urine RBC 0 SEEN, Urine WBC 0 SEEN, Ur Squamous Epith Cells 0-5 SEEN, Urine Bacteria 0 SEEN, Urine Mucus 0 SEEN Rhythm Strip Rhythm Strip: Sinus Rhythm Rate: 103 Ectopy: PVC(s) Radiology Impression Chest X-Ray 02/08/22 18:42 IMPRESSION: No radiographic evidence of acute cardiopulmonary disease. Electronically Signed: Maverick Garber MD at 19:05 EDT , Assessment & Plan Assessment/Plan (1) Fall: QUALIFIERS: Encounter type: initial encounter Qualified Code(s): W19.XXXA - Unspecified fall, initial encounter (2) Debility: PLAN: Debility and fall Chest x-ray was visualized and independently interpreted and agree with radiologist interpretation of no acute cardiopulmonary process. PT and OT to work with patient for strengthening balance training. Case management consult TSH is normal. Will check vitamin D level. Review of CBC showed white count of 14.8 with neutrophilia and lymphopenia. Hyponatremia and hypochloremia Sodium is mildly low at 130. Of note his sodium on 01/23/2022 was also 130. Last sodium on file was in 2019 and that was normal. TSH is normal. Serum osmolality and urine osmolality ordered. Urine sodium ordered. Check uric acid level. Gentle IV hydration. Trend CMP. Hyperbilirubinemia His bilirubin is elevated at 1.90. Will trend CMP. UTI Patient denies urinary symptoms. However urinalysis done at the emergency department was positive for leukocyte esterase and nitrites. In the setting of weakness and fall will treat as UTI. Urine culture ordered. Ceftriaxone ordered. DVT prophylaxis Subcutaneous Lovenox ordered. Charges/Coding Visit Charges OBSV E&M: 69291 Initial observation care L3
[2022-02-08 20:17] LABS: Magnesium 1.9 mg/dL (1.6-2.6)
[2022-02-08 20:20] VITALS: BP 121/94; PULSE 91; RESP 12; TEMP 36.9; O2SAT 98
[2022-02-08 21:06] LABS: Color, Urine Yellow (Yellow); Glucose, Dipstick Normal (Normal); Ketone-Dipstick Negative (Negative); Leukocyte Esterase-Dipstick 500 /ul (Negative); Nitrite-Dipstick Positive (Negative); Occult Blood-Urine 25 /ul (Negative); Protein-Dipstick 15 mg/dl (Negative); Urine Bilirubin Dipstick Negative (Negative); Urine Clarity Clear (Clear); Urine Urobilinogen 1 mg/dl (Normal)
[2022-02-08 21:11] VITALS: BMI 22.6
[2022-02-08 21:23] LABS: Vitamin D,25 Hydroxy 34.8 ng/mL
[2022-02-08 21:38] VITALS: BP 119/51; PULSE 92; RESP 18; TEMP 36.9; O2SAT 95
[2022-02-08] MEDS: Ceftriaxone 1 GM/50 ML BAG IV (21:56)
[2022-02-08] MEDS: 0.9% Saline Lock 10 ML Syringe IV (21:56)
[2022-02-08] MEDS: Atorvastatin Calcium 80 MG Tablet PO (21:59)
[2022-02-08] MEDS: MELATONIN 3 MG TABLET PO (21:59)
[2022-02-08 22:24] LABS: Osmolality, Serum 266 mOsm/KG (280-301)
[2022-02-08 22:30] VITALS: PULSE 93
[2022-02-08 22:30] LABS: Uric Acid 5.3 mg/dL (3.5-7.2)
[2022-02-09 02:00] VITALS: PULSE 93
[2022-02-09 04:00] VITALS: BP 128/54; PULSE 80; RESP 16; TEMP 37.3; O2SAT 96
[2022-02-09 06:00] VITALS: PULSE 80
[2022-02-09 06:14] LABS: Absolute Lymphocyte Count 2.66 X10^3/uL (0.83-4.51); Absolute Neutrophil Count 8.9 X10^3/uL (2.0-7.7); Basophil# 0.03 X10^3/uL; Basophil% 0.2 % (0-1); Eosinophil# 0.08 X10^3/uL; Eosinophils% 0.6 % (0-5); Hemoglobin 12.6 g/dL (13.0-16.5); Lymphocyte # 2.66 X10^3/ul (0.83-4.51); Lymphocyte % 20.5 % (19-41); Mean Corp Hgb Conc 34.1 g/dL (32-36); Mean Corpuscular Hgb 31.7 pg (27.0-32.0); Mean Platelet Vol. 9.4 fl (6.2-12.0); Monocyte# 1.27 X10^3/uL; Monocyte% 9.8 % (0-10); NRBC Flagged by Analyzer 0 % (0-5); Neutrophil # 8.86 X10^3/uL (2.7-7.7); Neutrophil % 68.4 % (47-70); Platelet Count 225 K/mm3 (150-450); RBC Distribution Width CV 13.1 % (11.6-14.6); RBC Distribution Width SD 44.8 fl (35.1-43.9); Red Blood Count 3.98 M/mm3 (4.6-6.2)
[2022-02-09 06:46] LABS: ALB/GLOB Ratio 0.8 RATIO (0.9-2.4); AST(SGOT) 59 U/L (15-37); Alanine Aminotransfer ALT/SGPT 24 U/L (16-61); Albumin, Serum 2.9 g/dL (3.2-5.0); Alkaline Phosphatase 72 U/L (45-117); Anion Gap 6 (5-15); BUN 9 mg/dL (7-18); Calcium,Total 9.1 mg/dL (8.5-10.1); Chloride 101 mmol/L (98-107); Creatinine, Serum 0.69 mg/dL (0.70-1.30); EST Glomerular Filtration Rate 117 mL/min (>60); Est Glom Filt Rate - Afr Amer 142 mL/min (>60); Estimated Creatinine Clearance 63.55 ml/min; Globulin 3.8 g/dL (2.2-4.2); Glucose 99 mg/dL (74-106); Potassium 3.6 mmol/L (3.5-5.1); Protein, Total 6.7 g/dL (6.4-8.2); Sodium Level 134 mmol/L (136-145)
[2022-02-09 06:59] VITALS: O2SAT 95
[2022-02-09 07:50] VITALS: BP 136/60; PULSE 79; RESP 16; TEMP 36.9; O2SAT 94
[2022-02-09 10:09] LABS: Urine Sodium 17 mmol/L (Not Establ.)
[2022-02-09] MEDS: Lisinopril 20 MG Tablet PO (10:36)
[2022-02-09] MEDS: Clopidogrel Bisulfate 75 MG Tablet PO (10:36)
[2022-02-09] MEDS: Famotidine 20 MG Tablet PO (10:36)
[2022-02-09] MEDS: amLODIPine 5 MG Tablet PO (10:36)
[2022-02-09] MEDS: Enoxaparin 40 MG/0.4 ML Syringe SC (10:37)
[2022-02-09 11:18] LABS: Osmolality, Urine 194 mOsm/KG
--- NOTE | 2022-02-09 13:27 | CASEMGMT ---
Social Work SW met with pt to complete assessment and discuss discharge plan. Pt is alert and oriented x3 and willing to talk with SW. Insurance: Medicare Living Will/HPOA: Pt states he has a living will and health care POA but documents are not on file at [facility] [place] LNOK: Maura Linares. Pt states two children live out of state and pt has no other supports other than Living Arrangements: Pt lives in a one story home with 3 steps in. Pt lives with his and states he sits on the couch and watches tv. 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 Pt states he is able to dress himself and complete grooming tasks but assists with showering. DME: Pt uses a yovani walker for ambulation HHC/SNF: Pt states he has been to [facility] [place] Rehab unit, TCU and [facility] in the past. Pt has had [facility] [place] HHS previously Plan: Pt states he needs to be able to walk when he discharges and feels he is very weak. SW spoke with pt regarding postacute care for rehab including [facility], SNF and home health. SW provided list of SNF providers including quality and resource use data and consistent with the patient's preferred geographic region, medical needs and insurance network. Pt preferred provider is [facility] [place] Inpatient Rehab. Referral made to [facility]. SW waiting for determination of acceptance. Rehab Unit, pending acceptance BRANDY Yadav
[2022-02-09 14:02] VITALS: BP 112/65; PULSE 68; RESP 16; TEMP 36.3; O2SAT 96
--- NOTE | 2022-02-09 15:23 | PCM.DC ---
Discharge Instructions Diet Discharge Diet: Low fat / Low cholesterol and 2000 mg Sodium Diet Activity Discharge Activity: Return to Normal Activity Follow Up Care Test Results: Test results from this visit will be discussed in further detail at your follow-up appointment, if applicable. Discharge Plan Admission Admit Date/Time: 02/08/22 19:54 Primary Reason for Your Visit: Debility Attending Provider: Jen Valdez Primary Care Provider: Kenny Martini Discharge Orders/Prescriptions Prescriptions: Continued atorvastatin 80 MG tablet 80 mg PO QHS Qty: 1 RF: 0 lisinopril 20 MG tablet 20 mg PO DAILY Qty: 30 RF: 0 amlodipine 5 MG tablet 5 mg PO DAILY Qty: 30 RF: 0 clopidogrel 75 MG tablet 75 mg PO DAILY Qty: 30 RF: 0 acetaminophen 500 MG tablet 1,000 mg PO Q6H PRN PRN (Reason: Not Specified) RF: 0 famotidine 20 MG tablet 20 mg PO DAILY RF: 0 Referrals / Follow Up: Kenny Martini MD [Primary Care Provider] - In 1 Week Disposition Disposition (needs filled in before D/C Order can be placed): Inpatient Rehab Unit/Facility
--- NOTE | 2022-02-09 15:26 | DS.PCM_ITS ---
Providers Date of Admission: 02/08/22 Date of Discharge: 02/09/22 Primary Care Physician: Dr. Kenny Martini MD Reason For Visit: DEBILITY Diagnosis Discharge Diagnosis (1) Fall: Status: Acute Code(s): W19.XXXA - Unspecified fall, initial encounter Qualifiers: Encounter type: initial encounter Qualified Code(s): W19.XXXA - Unspe cified fall, initial encounter (2) Debility: Status: Acute Code(s): R53.81 - Other malaise Medications at Discharge Home Medications atorvastatin 80 mg PO QHS #1 tablet 02/02/14 amlodipine 5 mg PO DAILY #30 tablet 02/25/14 lisinopril 20 mg PO DAILY #30 tablet 02/25/14 clopidogrel 75 mg PO DAILY #30 tablet 03/31/14 acetaminophen 1,000 mg PO Q6H PRN PRN 12/09/19 famotidine 20 mg PO DAILY 12/09/19 aspirin 81 mg PO DAILY 30 Days #30 tab 02/09/22 Hospital Course Operations None Procedures None Summary of Care Provided Minutes Spent on Discharge: 25 Hospital Course: 76-year-old male with past medical history of CVA in 2013, with residual left-sided paralysis, Who comes in with progressive weakness and a fall. Patient stated that he was standing at the sink trying to shave when he attempted to walk to the toilet. He could not move the left side of his extremity. He was progressively weak. Patient's physical exam appears to be close to his baseline. His family cannot take care of him. He was admitted for placement. He was seen by PT and OT and skilled for discharge to acute rehab. Physical Exam Narrative Physical exam: General: Alert, Oriented x3, Cooperative, No apparent distress HEENT: Atraumatic Oral: Moist Mucosa Neck: Supple Lungs: Clear to auscultation Cardiovascular: HS I+II, regular, no murmurs Abdomen: Bowel Sounds Present, Soft, Non Tender Extremities: No edema Skin: No rashes, No breakdown Neurological: Power in the left upper extremity is 1/5, power in the left lower extremity is 3/5, increased tone in the left extremities Psych/Mental Status: Appropriate Weight / BMI Weight Weight: 73.8 kg Body Mass Index (BMI) 22.6 ABG / Lab / Microbiology Data Result Diagrams: 02/09/22 05:15 02/09/22 05:15 Laboratory: Laboratory Results - last 24 hr 02/08/22 18:30: WBC 14.8 H, RBC 4.64, Hgb 14.6, Hct 43.7, MCV 94.2 H, MCH 31.5, MCHC 33.4, RDW Std Deviation 44.5 H, RDW Coeff of Uche 13.0, Plt Count 251, MPV 9.1, Immature Gran % (Auto) 0.300, Neut % (Auto) 78.9 H, Lymph % (Auto) 12.6 L, [place] % (Auto) 7.6, Eos % (Auto) 0.3, Baso % (Auto) 0.3, Absolute Neuts (auto) 11.7 H, Absolute Lymphs (auto) 1.86, Nucleated RBC % 0 02/08/22 18:30: Sodium 130 L, Potassium 4.0, Chloride 95 L, Carbon Dioxide 27.0, Anion Gap 8, BUN 12, Creatinine 1.12, Estim Creat Clear Calc 57.89, Est GFR ( RD) Af Amer 82, Est GFR (MDRD) Non-Af 67, BUN/Creatinine Ratio 10.7, Glucose 120 H, Calcium 9.6, Total Bilirubin 1.90 H, AST 30, ALT 23, Alkaline Phosphatase 87, Total Protein 8.1, Albumin 3.7, Globulin 4.4 H, Albumin/Globulin Ratio 0.8 L 02/08/22 18:30: Troponin I High Sens 24, TSH 1.18 02/08/22 18:30: Magnesium 1.9 02/08/22 18:30: Uric Acid 5.3 02/08/22 18:50: Urine Color Cancelled, Urine Clarity Cancelled, Urine pH Cancelled, Ur Specific [place] Cancelled, U Specif Grav (Refrac) Cancelled, Urine Protein Cancelled, Urine Glucose (UA) Cancelled, Urine Ketones Cancelled, Urine Occult Blood Cancelled, Urine Nitrite Cancelled, Urine Bilirubin Cancelled, Urine Urobilinogen Cancelled, Ur Leukocyte Esterase Cancelled, Urine RBC Cancelled, Urine WBC Cancelled, Ur Squamous Epith Cells Cancelled, Ur Transition Epith Cell Cancelled, Ur Renal Epithelial Cell Cancelled, Calcium Oxalate Crystal Cancelled, Uric Acid Crystals Cancelled, Triple Phos Crystals Cancelled, Other Crystals Cancelled, Amorphous Sediment Cancelled, Urine Bacteria Cancelled, Hyaline Casts Cancelled, Fine Granular Casts Cancelled, Coarse Granular Casts Cancelled, Waxy Casts Cancelled, RBC Casts Cancelled, WBC Casts Cancelled, Urine Mucus Cancelled, Urine Trichomonas Cancelled, Urine Yeast Cancelled 02/08/22 20:40: Vitamin D 25-Hydroxy 34.8 02/08/22 20:40: Serum Osmolality 266 L 02/08/22 21:00: Urine Color Yellow, Urine Clarity Clear, Urine pH 6.0, Ur Specific [place] 1.010, Urine Protein 15 H, Urine Glucose (UA) Normal, Urine Ketones Negative, Urine Occult Blood 25 H, Urine Nitrite Positive H, Urine Bilirubin Negative, Urine Urobilinogen 1 H, Ur Leukocyte Esterase 500 H 02/09/22 05:15: WBC 13.0 H, RBC 3.98 L, Hgb 12.6 L, Hct 37.0 L, MCV 93.0, MCH 31.7, MCHC 34.1, RDW Std Deviation 44.8 H, RDW Coeff of [place]che 13.1, Plt Count 225, MPV 9.4, Immature Gran % (Auto) 0.500, Neut % (Auto) 68.4, Lymph % (Auto) 20.5, [place] % (Auto) 9.8, Eos % (Auto) 0.6, Baso % (Auto) 0.2, Absolute Neuts (auto) 8.9 H, Absolute Lymphs (auto) 2.66, Nucleated RBC % 0 02/09/22 05:15: Cortisol 12.60 02/09/22 05:15: Sodium 134 L, Potassium 3.6, Chloride 101, Carbon Dioxide 27.0, Anion Gap 6, BUN 9, Creatinine 0.69 L, Estim Creat Clear Calc 63.55, Est GFR (MDRD) Af Amer 142, Est GFR (MDRD) Non-Af 117, BUN/Creatinine Ratio 13.0, Glucose 99, Calcium 9.1, Total Bilirubin 1.60 H, AST 59 H, ALT 24, Alkaline Phosphatase 72, Total Protein 6.7, Albumin 2.9 L, Globulin 3.8, Albumin/Globulin Ratio 0.8 L 02/09/22 09:45: Urine Osmolality 194, Ur Random Sodium 17 Radiography Diagnostic Testing: Radiology Impression Chest X-Ray 02/08/22 18:42 IMPRESSION: No radiographic evidence of acute cardiopulmonary disease. Electronically Signed: Maverick Garber MD at 19:05 EDT , D/C Instructions Discharge Diet: Low fat / Low cholesterol and 2000 mg Sodium Diet Meaningful Use Info Meaningful Use Diagnoses (Choose all that apply): None applicable Discharge Plan Admission Admit Date/Time: 02/08/22 19:54 Primary Reason for Your Visit: Debility Attending Provider: Jen Valdez Primary Care Provider: Kenny Martini Discharge Orders/Prescriptions Prescriptions: New aspirin 81 mg tablet,delayed release (DR/EC) 81 mg PO DAILY 30 Days Qty: 30 RF: 0 Continued atorvastatin 80 MG tablet 80 mg PO QHS Qty: 1 RF: 0 lisinopril 20 MG tablet 20 mg PO DAILY Qty: 30 RF: 0 amlodipine 5 MG tablet 5 mg PO DAILY Qty: 30 RF: 0 clopidogrel 75 MG tablet 75 mg PO DAILY Qty: 30 RF: 0 acetaminophen 500 MG tablet 1,000 mg PO Q6H PRN PRN (Reason: Not Specified) RF: 0 famotidine 20 MG tablet 20 mg PO DAILY RF: 0 Referrals / Follow Up: Kenny Martini MD [Primary Care Provider] - In 1 Week Disposition Disposition (needs filled in before D/C Order can be placed): Inpatient Rehab Unit/Facility Charges/Coding Visit Charges OBSV E&M: 72484 Observation care discharge
--- NOTE | 2022-02-09 15:26 | CASEMGMT ---
Social Work CARLITA spoke with Nini in Inpatient Rehab and pt can be accepted to [facility]. Pt updated and agreeable with d/c plan. CARLITA requested to notify pt of d/c plan. Pt declines stating he will call her and update on transfer to [facility]. CARLITA updated physician. Plan: Rehab Unit, when medically ready. BRANYD Yadav
== END 2022-02-09 16:35 ==
LOC: ED 19:38 → MS3 20:16
PROVIDERS: Admitting Provider Hospitalist; Emergency Provider Emergency Medicine; PCP Family Medicine; Visit Provider Internal Medicine
DX: R53.81 Other malaise (principal); I69.354 Hemiplegia and hemiparesis following cerebral infarction affecting left non-dominant side; E87.1 Hypo-osmolality and hyponatremia; Z79.02 Long term (current) use of antithrombotics/antiplatelets; Z87.891 Personal history of nicotine dependence; R53.1 Weakness; Z79.899 Other long term (current) drug therapy; E80.7 Disorder of bilirubin metabolism, unspecified; Z91.81 History of falling; N39.0 Urinary tract infection, site not specified
CPT/HCPCS: 96365; 96372; 99285; 36415; 71045; 80053; 81001; 81002; 82306; 82533; 83735; 83930; 83935; 84300; 84443; 84484; 84550; 85025; 87086; 87088; 93005; 97162; 97166; 97802; 99218; J7050; A4216; G0378

== ENCOUNTER 2022-02-09 16:50 | Inpatient (IN) | payer MEDICARE, BC, SELFPAY ==
[2022-02-09 17:14] VITALS: BP 135/63; PULSE 80; RESP 18; TEMP 36.6; O2SAT 93; BMI 22.4
[2022-02-09 20:13] VITALS: BP 139/63; PULSE 84; RESP 10; TEMP 37.1; O2SAT 96
[2022-02-09] MEDS: Senna/Docusate Sodium 1 Tablet 2 TABLET PO (21:42)
[2022-02-09] MEDS: Atorvastatin Calcium 80 MG Tablet PO (21:42)
[2022-02-09] MEDS: 0.9% Saline Lock 10 ML Syringe IV ×2 (21:51→22:30)
[2022-02-09] MEDS: Ceftriaxone 1 GM/50 ML BAG IV (21:52)
[2022-02-10 08:00] VITALS: BP 135/57; PULSE 79; RESP 20; TEMP 37.1; O2SAT 94
[2022-02-10] MEDS: amLODIPine 5 MG Tablet PO (08:31)
[2022-02-10] MEDS: Lisinopril 20 MG Tablet PO (08:31)
[2022-02-10] MEDS: Famotidine 20 MG Tablet PO (08:31)
[2022-02-10] MEDS: Clopidogrel Bisulfate 75 MG Tablet PO (08:32)
--- NOTE | 2022-02-10 11:54 | HP.PCM_ITS ---
HPI - General General Date of Admission: 02/09/22 HPI Narrative Rocephin day #3 REX DAY, is a 76 YO M who presented to the ER at [facility] on 02/08/22 after having a fall at home. He reportedly had been getting weaker each day over the past week. He has had a stroke in the past (2013) and has persistent L hemiplegia. He had no significant injuries and no XRAYS were done. Lab showed an elevated white blood cell count at 14.8 with a left shift. Hemoglobin was normal at 14.6 and platelets were also within normal limits. Sodium was low at 130. Bilirubin was elevated at 1.9 and the other liver function studies were within normal limits. Creatinine was increased over baseline at 1.12. TSH was normal. A.m. cortisol was normal. Urine sodium was 17 and the urine osmolality was 194 which is less than maximally dilute. Urine was positive for nitrites and the leukocyte Estrace was 500. The preliminary on the urine culture is no growth. He lives with his spouse and she can no longer take care of him at home and he was admitted with debility and the plan apparently is to place him if he does not significantly improve. His told him that he is getting slower in doing things. He is requiring max assist of 2 just to stand and pivot. He is incontinent of urine. Total assist with toileting. Many of the things and used to do for enjoyment are things that he can no longer do since the stroke. This includes photography, hiking, fixing computers, etc. He used to play competitive chess on line but, can no longer do this because he needs a camera to view him from the side while playing to make sure he is not cheating and he does not have this and does not want it. He used to play chess with friends on line but, he quit this and now he sometimes will play against the computer......he momentarily got tearful when he told me this. He has trouble sleeping at night. He can go to sleep but, he gets up every 2 hours because he is wet and has to change his diaper. He drinks a lot of diet coke during the day and this may be contributing to frequency. He denies dysuria, fevers, chills, flank pain, pelvic pain, N/V prior to being admitted to the acute side of the hospital. 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 He has never told anyone else he has this. He sometimes has rectal pain. He also has fecal urgency and very loose BM's for the past few years. Has not seen a doctor for this. [facility] Medical History (Updated 02/12/22 @ 16:[address] Sole Hdz DO) Dyslipidemia Former smoker HTN (hypertension) ICAO (internal carotid artery occlusion) LVH (left ventricular hypertrophy) Right middle cerebral artery stroke Urinary incontinence Home Medications acetaminophen 1,000 mg PO Q6H PRN PRN 12/09/19 [History Last Taken 02/07/22] famotidine 20 mg PO DAILY 12/09/19 [History Last Taken 02/07/22] amlodipine 5 mg PO DAILY 02/09/22 [History Last Taken Unknown] aspirin 81 mg PO DAILY 02/09/22 [History Last Taken Unknown] atorvastatin 80 mg PO QHS 02/09/22 [History Last Taken Unknown] clopidogrel 75 mg PO DAILY 02/09/22 [History Last Taken Unknown] lisinopril 20 mg PO DAILY 02/09/22 [History Last Taken Unknown] Allergy/AdvReac Type Severity Reaction Status Date / Time No Known Allergies Allergy Verified 12/03/13 11:24 Family History Other Cancer Surgical History History of appendectomy History of cholecystectomy Social History Smoking Status: Former smoker ROS Constitutional Constitutional: Reports anorexia, body ache(s), difficulty sleeping and other Details: tells me that food tastes terrible since he had the stroke in 2013. ; Denies chills, fever(s), headache(s) or night sweats Eyes Eyes: Denies blurry vision, double vision, excessive blinking, exophthalmos, eye pain or itchy eyes ENT HEENT: Reports nasal congestion and post nasal drip; Denies abnormal hearing, dental pain, disequillibrium, dizziness, dysphagia, ear pain, facial pain or mouth pain Cardiovascular Cardiovascular: Denies chest pain, cyanosis, dizziness, dyspnea, leg edema, lightheadedness, nausea, paroxysmal nocturnal dyspnea, rapid heart rate or vomiting Respiratory/Chest Respiratory/Chest: Reports cough and other Details: the cough he thinks is due to post nasal drainage. ; Denies dyspnea, pain with cough, portable oxygen @ home or tachypnea Gastrointestinal Gastrointestinal: Reports change in stool character, fecal incontinence, loose stools, rectal bleeding, taste impaired and other Details: For the past few years his stool has become very loose and he sometimes can not get to the BR in time and he is incontinent in his diaper. Denies hematochezia, hematemesis, melena. Can not recall if he has ever had a colonoscopy. ; Denies abdominal pain, belching, bloating, change in bowel habits, constipation, cramping, dry he aves or dyspepsia Genitourinary Genitourinary: Reports nocturia, urinary frequency and urinary incontinence; Denies burning urination, change in urinary stream, dribbling, dysuria, flank pain, genital pain, low back pain, penile discharge, polyuria or testicular swelling Musculoskeletal Musculoskeletal: Reports arthralgias, difficulty walking, muscle weakness, myalgias and other Details: He has chronic aching pain in his left shoulder, left elbow, left wrist, left ankle and foot since his stroke in 2013. 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 ; Denies jaundice Neurologic Neurologic: Reports abnormal gait and weakness; Denies convulsions, dizziness, headache(s), loss of vision, restless legs or tremor(s) Psychiatric Psychiatric: Denies auditory hallucinations, change in appetite, confusion, homicidal ideation, panic attacks, suicidal ideation, suicidal thoughts or visual hallucinations Endocrine Endocrinology: Denies heat intolerance, palpitations, polydipsia or polyphagia Allergic/Immunologic Allergic/Immunologic: Reports rhinitis; Denies itchy eyes, tongue swelling, hives or wheezing Vital Signs Vital Signs Vital Signs: 02/09/22 17:14 02/09/22 20:13 02/10/22 08:00 Temperature 97.9 F 98.8 F 98.7 F Temperature Source Oral Temporal Oral Pulse Rate 80 84 79 Respiratory Rate 18 10 L 20 H Blood Pressure 135/63 H 139/63 H 135/57 H Blood Pressure Mean 87 88 83 Blood Pressure Source Monitor Monitor Monitor Blood Pressure Position Semi-Fowlers Semi-Fowlers Semi-Fowlers Blood Pressure Location Right Arm Right Arm Left Arm Pulse Ox 93 96 94 Oxygen Delivery Method Room Air Room Air Room Air Weight Weight: 160 lb 12.8 oz Body Mass Index (BMI) 22.4 Physical Exam Const alert, oriented x3 and no apparent distress General Appearance: cooperative HEENT moist oral mucous membranes HEENT Narrative: tongue protrudes on the midline. Has a mustache and a scraggly franco. Head and Scalp: normocephalic and atraumatic Eyes PERRL, conjunctivae normal and no scleral icterus Eyes Narrative: The left eye does not track the whole way to the left. Neck No nuchal rigidity and no lymphadenopathy Neck Narrative: carotid bruits vs radiation of the MM.......I looked back at my Progress note from 2013 when he had the stroke and he had a MM then. The aortic valve was not visualized well on the ECHO done at that time and he has not had an ECHO since then. Chest Chest Narrative: Increased AP diameter of the chest. Chest: symmetrical chest wall rise Resp normal respiratory effort, normal air movement and clear to auscultation bilaterally Effort and Inspection: able to speak in complete sentences; Negative for labored, actively coughing or uses accessory muscles Cardio regular rate, regular rhythm, no rub and no gallops Cardio Narrative: He has a systolic MM at the 2nd RICS with radiation to the LV outflow tract and the apex. The PMI is displaced inferiorly. GI normal to inspection, nondistended, normoactive bowel sounds, soft to palpation and non-tender GI Narrative: No guarding with palpation. He has a stage 2 decubitus ulcer on the left buttock. He has a large skin tag on the left buttock as well. No discharge. He has some erythema surrounding the stage 2 on the left buttock but this is due to pressure and not cellulitis. I see no evidence of a fistulous tract. No purulent DC and no odor to the wound. Testes: Negative for testicular swelling Extremity no calf tenderness and no pedal edema Skin Skin Narrative: He has a stage 2 decub on the Left buttock and also a skin tag with a white head but no DC could be expressed. No odor and no purulent DC. No fistulous tracts that I can identify. Neuro Neuro Narrative: Left eye does not track completely to the lateral canthus. He has a mild left facial droop. Left hemiparesis, arm> leg. c/o aching in the left arm and leg that has been chronic since the stroke in 2013. 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 Will revisit this at a later date. Bowel protocol Fall precautions Assess for Anxiety/Depression GI prophylaxis with famotidine DVT prophylaxis with TANYA bruno and SCDs.....he refuses Lovenox and Heparin and tells me that he does not like shots. Follow up with Dr. Martini following DC from [facility] Rehab AM lab including CMP, CBC, Mag and Phos Consider an antidepressant - would use an SSRI. Will continue this discussion with him to see if he will agree to a trial of an antidepressant. Patient was instructed to limit the amount of caffeine to 1 diet coke a day. This is more likely than not contributing to the bladder irritability. I also suggested he try scheduled toileting breaks during the day. Consider a trial of Flomax since he has nocturia every 2 hours at night? or does he have insomnia due to depression and he wakes up and then figures he may as well go to the BR. I reviewed my notes form the admission in 2013 and he had apneic periods at night while sleeping......this could also be contributing to urinary incontinence at night and to depression. Will order an overnight trending pulse ox. Unit Exclusion This patient is an acute care inpatient being housed in the excluded unit because of capacity issues related to the disaster or emergency.: Yes Charges/Coding Visit Charges Inpatient E&M: 06465 Init Hosp L3
--- NOTE | 2022-02-10 16:08 | PCA ---
this patient asked me if i threw his blanket on the floor and i kindly asked him if it ewas his personal care josé miguel that did it also this patient said he wanted to go to the bathroom and asked by saying he needed to pee like a girl while visitor present
[2022-02-10 19:52] VITALS: BP 116/45; PULSE 81; RESP 14; TEMP 36.8; O2SAT 95
[2022-02-10] MEDS: Menthol/Lanolin/Calamine/Znox 113 GM Tube 1 APPLIC TOPICAL (21:47)
[2022-02-10] MEDS: Atorvastatin Calcium 80 MG Tablet PO (21:47)
[2022-02-10] MEDS: Ceftriaxone 1 GM/50 ML BAG IV (21:47)
[2022-02-10] MEDS: 0.9% Saline Lock 10 ML Syringe IV (21:50)
[2022-02-11] MEDS: Menthol/Lanolin/Calamine/Znox 113 GM Tube 1 APPLIC TOPICAL ×2 (06:10→20:02)
[2022-02-11] MEDS: Clopidogrel Bisulfate 75 MG Tablet PO (07:49)
[2022-02-11] MEDS: Lisinopril 20 MG Tablet PO (07:49)
[2022-02-11] MEDS: amLODIPine 5 MG Tablet PO (07:49)
[2022-02-11] MEDS: Famotidine 20 MG Tablet PO (07:50)
[2022-02-11 07:54] LABS: Hematocrit 44.3 % (40-54); Hemoglobin 14.2 g/dL (13.0-16.5); Mean Corp Hgb Conc 32.1 g/dL (32-36); Mean Corpuscular Hgb 30.2 pg (27.0-32.0); Mean Corpuscular Volume 94.3 fL (80-94); Mean Platelet Vol. 9.1 fl (6.2-12.0); Platelet Count 293 K/mm3 (150-450); RBC Distribution Width CV 13.1 % (11.6-14.6); RBC Distribution Width SD 45.5 fl (35.1-43.9); White Blood Count 8.1 K/mm3 (4.4-11.0)
[2022-02-11 08:19] LABS: ALB/GLOB Ratio 0.7 RATIO (0.9-2.4); AST(SGOT) 56 U/L (15-37); Alanine Aminotransfer ALT/SGPT 32 U/L (16-61); Albumin, Serum 3.4 g/dL (3.2-5.0); Alkaline Phosphatase 78 U/L (45-117); Anion Gap 6 (5-15); BUN 10 mg/dL (7-18); Chloride 97 mmol/L (98-107); Creatinine, Serum 0.83 mg/dL (0.70-1.30); EST Glomerular Filtration Rate 95 mL/min (>60); Est Glom Filt Rate - Afr Amer 115 mL/min (>60); Estimated Creatinine Clearance 75.67 ml/min; Globulin 4.6 g/dL (2.2-4.2); Glucose 103 mg/dL (74-106); Magnesium 2.1 mg/dL (1.6-2.6); Phosphorus 3.5 mg/dL (2.5-4.9); Potassium 3.6 mmol/L (3.5-5.1); Sodium Level 132 mmol/L (136-145)
[2022-02-11 08:30] VITALS: BP 145/73; PULSE 80; RESP 16; TEMP 37.2; O2SAT 97
--- NOTE | 2022-02-11 18:17 | NURSING ---
Since admission patient has had a stage 2 to buttocks and he is refusing to lay in the bed to off load. Encouraged and educated again this evening with no luck. He has been sleeping and resting in recliner chair in room, cushion in chair provided. Will monitor.
[2022-02-11 19:32] VITALS: BP 122/72; PULSE 88; RESP 14; TEMP 37.1; O2SAT 96
[2022-02-11] MEDS: 0.9% Saline Lock 10 ML Syringe IV ×2 (21:44→22:15)
[2022-02-11] MEDS: Ceftriaxone 1 GM/50 ML BAG IV (21:45)
[2022-02-11] MEDS: Atorvastatin Calcium 80 MG Tablet PO (22:12)
[2022-02-12] MEDS: Menthol/Lanolin/Calamine/Znox 113 GM Tube 1 APPLIC TOPICAL ×2 (05:17→22:33)
[2022-02-12 07:30] VITALS: BP 138/64; PULSE 77; RESP 16; TEMP 36.7; O2SAT 94
[2022-02-12] MEDS: Famotidine 20 MG Tablet PO (08:05)
[2022-02-12] MEDS: Clopidogrel Bisulfate 75 MG Tablet PO (08:05)
[2022-02-12] MEDS: amLODIPine 5 MG Tablet PO (08:06)
[2022-02-12] MEDS: Lisinopril 20 MG Tablet PO (08:06)
--- NOTE | 2022-02-12 09:53 | REHABEVAL_ITS ---
Admission Information Primary Diagnosis:: Debility due to remote stroke. Status Changes from Prescreening?: No changes Identified Actual Problem List:: UTI (culture did not grow any bacteria but, the leukocytosis resolved with Rocephin), Skin Intergrity (Stage 2 decubitus ulcer in the gluteal cleft), Cognitve Impr/Memory Loss, Depression, Bladder Incontinence, Mobility Impaired, Self Care Deficit, Fluid Change-Dehydration and Alteration-Leisure Activ. Potential Problem List:: DVT, Bleeding, Infection, UTI, Aspiration, Falls, Skin Integrity and Depression Risk of Complications DVT: LMWH and TANYA Hose Bleeding: Monitor Lab Values, Nursing to Teach Precautions for anti-coagulation therapy., Wound, if applicable, to be assessed every shift. and Stroke patients assessed for lethargy or change in status. Infection: Clinical Staff to Monitor for S/S of infection: and S/S of infection include fever, redness, warmth, etc. Urinary Tract Infection: Monitor for frequency, burning, discomfort, or incontinence. and Nursing will obtain urine sample for urinalysis and C&S when ordered. Aspiration: Clinical staff will monitor for coughing, drooling, congestion., Speech will evaluate swallowing and dsyphasia. and Nursing will monitor patient swallowing during meals. Falls: Patient will be evaluated for Fall Precautions and Patient will be placed on Fall Precautions as indicated per protocol. Skin Breakdown: Nursing will assess skin daily using assessment tool. and Nursing will place on Skin Breakdown Precautions as indicated. Pain: Clinical staff will assess patient's pain level per protocol., Medications will be given, if needed, and the pain level reassessed. and Other methods: Massage, distraction, decrease stimulus, etc. used PRN. Plan of Care Patient requires physician specializing in physical medicine and rehab oversight to provide close medical supervision of rehab issues including: Pain Management, Sleep Problems, Bowel and Bladder, Medical and co-morbidity Management, DVT prophylaxis, Rehabilitation Leadership and Coordination of treatment team Patient needs Physical Therapy: For a minimum of 1 hour and At least 5 out of 7 days Patient needs Physical Therapy to improve:: Mobility, Strengthening, Transfers, Stretching, ROM, Endurance, Stairs, Gait and Balance Patient needs Occupational Therapy: For a minimum of 1 hour and At least 5 out of 7 days Patient needs Occupational Therapy to improve ADL's incl.: Eating, Grooming, Bathing, Dressing, Toileting, Toilet transfers, Community Reintegration, Higher functioning activities, Household tasks, Adaptive Equipment, Splinting and Other activities as determined Patient requires 24/7 Rehabilitation Nursing for: Pain Issues, Identifying and preventing risk factors, Monitoring and reporting current medical conditions, Assisting with ambulation, transfer, and all ADL's, Teaching patients about disease process and medications, Family teaching, Providing safe environment, Bowel and Bladder Issues, Skin integrity and Medication Management Patient needs Customer Marketing Assistant/ Case Management for: Discharge Planning, Arranging Home Equipment or Services and Family Interventions Patient needs Dietary and Nutrition Services for: Adequate Nutrition, Nutritional Supplements and Nutritional Education Goals Patient will perform bed mobility at: MOD I level of assist. Patient will complete transfers from bed to chair at: - (Supervision) Patient will ambulate: 100 feet (Using a hemiwalker at supervision.) Patient will complete upper body dressing at: MOD I level of assist. Patient will complete lower body dressing at: - (Supervision) Patient will complete toileting at: MOD I level of assist. Patient will perform bathing at: Standby Assist. Patient will complete grooming at: MOD I level of assist. Patient will achieve: - (3 steps with handrail and supervision. 1 curb step with supervision.) Patient will have pain level of: of 3 or less Patient's skin will: remain intact Patient will receive: adequate nutrition. Discharge Planning Pt Prognosis for Sig. Practical Improv. w/in Reasonable Time: Good Estimated Length of stay (days): 21 Anticipated D/C Destination: Home with Outpt Therapy (Will need to discuss this with his to see if she will be able to help him.......would bring her in for family training prior to DC to make sure she is capable and feels comfortable with this plan.) Was Preadmission Assessment Accurate?: Yes
--- NOTE | 2022-02-12 10:06 | PN_ITS ---
Subjective Subjective Day #5 Rocephin Afebrile VSS Maintaining appropriate oxygen saturation on RA Oral intake is fair He has lost 2 pounds since admission. 1 of 3 post void residuals was greater than 250. He is incontinent of urine. Stool is mostly liquid or nursing Discussed with nursing - I got a note from nursing asking me to re-examine the decub on the left buttock. He normally sleeps in a chair and the decub likely arose from sitting in one position without moving. They were able to convince him to sleep in the bed. Reviewed the PT/OT notes Medication list reviewed. Dietitian's assessment was reviewed. All lab from 02/11/2022 was personally reviewed. The leukocytosis has resolved and the white blood cell count is now 8.1. Hemoglobin is 14.2. Sodium is low at 132 and the chloride is low at 97. Potassium is 3.6. Serum bicarb is within normal limits. BUN is 10 with a creatinine of 0.83. Phosphorus and magnesium are normal. Total bilirubin remains elevated at 1.5 but this is down from 1.9 at admission to the hospital. The bilirubin has been elevated as far back as 2015. AST is very mildly elevated at 56 and the ALT and alkaline phosphatase are normal. Urine culture grew mixed gram-positive organisms, less than 1000 colonies Add denies chest pain, shortness of breath, dysuria, flank pain, nausea/vo miting, abdominal pain/cramping, lightheadedness. He complains of aching in the left arm and the left foot and ankle. Objective Data Objective Data Vital Signs: Vital Signs Temp Pulse Resp BP Pulse Ox 98.1 F 77 16 138/64 H 94 02/12/22 07:30 02/12/22 07:30 02/12/22 07:30 02/12/22 07:30 02/12/22 07:30 Oxygen Delivery Method Room Air Weight: 160 lb 12.8 oz Body Mass Index (BMI) 22.4 Intake & Output: Intake and Output for Last 24 Hours 02/10/22 02/11/22 02/12/22 23:59 23:59 23:59 Intake Total 500 / 500 590 / 590 440 / 440 Output Total 300 / 300 Balance 200 / 200 590 / 590 440 / 440 Lab / Micro Data Result Diagrams: 02/11/22 07:30 02/11/22 07:30 Physical Exam Const alert, oriented x3 and no apparent distress General Appearance: cooperative and comfortable HEENT moist oral mucous membranes Chest Chest: symmetrical chest wall rise Resp normal respiratory effort and clear to auscultation bilaterally Resp Narrative: did not cough while I was in the room. Effort and Inspection: able to speak in complete sentences Cardio regular rate, regular rhythm and no gallops Cardio Narrative: No change in the systolic MM at the 2nd RICS Palpation: abnormal PMI displaced PMI and other (the PMI is below the rib cage on the Midline in the left chest.) Rate: regular rate GI normal to inspection, nondistended, normoactive bowel sounds, soft to palpation and non-tender GI Narrative: no guarding with palpation Extremity no calf tenderness and no pedal edema Skin Skin Narrative: The stage 2 decub on the left buttock has healed and he is now a stage 1........will continue with sleeping in the bed and frequent turning. Rashes: no rashes Psych thought process normal Appearance: grossly normal and appropriate Attitude: calm Activity / Motor Behavior: appropriate eye contact Speech: normal speech Mood & Affect: tearful and other he was tearful with me when talking about the activities he used to enjoy and now can not do because of the stroke. He seems to enjoy less and less and even quit playing chess on-line. Thought Content: normal thought content, No suicidality, No hallucination(s), No depersonalization and No rumination(s) Memory / Cognition: memory grossly intact Assessment & Plan Assessment/Plan (1) Physical debility: (2) Generalized weakness: (3) Depression: QUALIFIERS: Depression Type: reactive depression Qualified Code(s): F32.9 - Major depressive disorder, single episode, unspecified (4) BPH associated with nocturia: (5) Urinary incontinence: QUALIFIERS: Urinary Incontinence type: urge incontinence Qualified Code(s): N39.41 - Urge incontinence (6) Infection: (7) Central pain syndrome: (8) Insomnia: QUALIFIERS: Insomnia type: other insomnia Qualified Code(s): G47.09 - Other insomnia PLAN: 1. Ed is agreeable to trying an antidepressant and we will start Sertraline in the AM. 2. Continue PT and OT 3. Start Flomax to see if we can cut down on the nocturia. Will also eliminate caffeine from his diet to see if the urge incontinence improves. Will also schedule toileting every 3 hours during the day. check orthostatics daily in the AM X 3 days 4. Consider a dose of Gabapentin at Bedtime.......for the suspected central p ain S. Pain may be keeping him awake at night. 5. DC Rocephin after 7 doses. Recheck a CBC with diff in a week. Charges/Coding Visit Charges Inpatient E&M: 73053 Subs Hosp L2
[2022-02-12 12:30] VITALS: O2SAT 94
--- NOTE | 2022-02-12 14:41 | CASEMGMT ---
Social Work Met with patient to complete initial assessment. Introduced self and role. Pt wishes to have as primary contact. Pt has two children but both live out of state. Pt confirmed DNR-CCA, no intubation. Explained Medicare benefit. The goal is for pt to return home with . was assisting with IADLs and bathing prior. Pt has 3 steps to enter and using hemiwalker due to stroke in 2013. SW will continue to follow for DC planning. Laura Amador, SUPERVISOR [employer]PER[employer]
[2022-02-12] MEDS: Tamsulosin HCl 0.4 MG Capsule PO (18:20)
[2022-02-12 22:00] VITALS: PULSE 66; RESP 16
[2022-02-12 22:15] VITALS: BMI 22.4
[2022-02-12] MEDS: Atorvastatin Calcium 80 MG Tablet PO (22:34)
[2022-02-12] MEDS: 0.9% Saline Lock 10 ML Syringe IV ×2 (22:35→23:19)
[2022-02-12] MEDS: Ceftriaxone 1 GM/50 ML BAG IV (22:36)
[2022-02-12 22:41] VITALS: BP 124/49; PULSE 67; RESP 15; TEMP 36.6; O2SAT 96
[2022-02-13] MEDS: Menthol/Lanolin/Calamine/Znox 113 GM Tube 1 APPLIC TOPICAL ×2 (04:32→22:19)
[2022-02-13 07:33] VITALS: BP 112/53; PULSE 75; RESP 15; TEMP 36.8; O2SAT 96
[2022-02-13] MEDS: Famotidine 20 MG Tablet PO (07:57)
[2022-02-13] MEDS: Clopidogrel Bisulfate 75 MG Tablet PO (07:57)
[2022-02-13] MEDS: amLODIPine 5 MG Tablet PO (07:57)
[2022-02-13] MEDS: Lisinopril 20 MG Tablet PO (07:57)
[2022-02-13 08:21] VITALS: BP 122/61; BP 122/66; BP 124/68; PULSE 70; PULSE 72
[2022-02-13] MEDS: Sertraline 50 MG Tablet 25 MG PO (08:30)
--- NOTE | 2022-02-13 14:13 | PN_ITS ---
Subjective Subjective Demetria day #6/7 Ed was seen on TEAM rounds today and his Maura was present in the room. Afebrile VSS-blood pressure is well controlled. Heart rate is within normal limits. Orthostatics were negative today. Maintaining appropriate oxygen saturation on RA. Oral intake is fair Discussed with nursing - no problems that need addressed. He is still incontinent with urine at night. Started Flomax yesterday and was changed twice last night......which is an improvement over every 2 hours. Will recheck Post void residuals again in another few days. Reviewed the PT/OT notes Medication list reviewed. Ed tells me that the pain in the left side is better today. He denies CP, SOB, palpitations, lightheadedness, GOEL, N/V/abd pain, dysuria, calf pain. He fatigues pretty easily but, he is walking a lot farther now than he was at home and he is CGA/SBA now. He received his COVID vaccine today and will need to schedule him for a second shot in 1 month. He received an MRA vac. Objective Data Objective Data Vital Signs: Vital Signs Temp Pulse Resp BP Pulse Ox 98.3 F 70 15 124/68 H 96 02/13/22 07:33 02/13/22 08:21 02/13/22 07:33 02/13/22 08:21 02/13/22 07:33 Oxygen Delivery Method Room Air Weight: 160 lb 12.8 oz Body Mass Index (BMI) 22.4 Intake & Output: Intake and Output for Last 24 Hours 02/11/22 02/12/22 02/13/22 23:59 23:59 23:59 Intake Total 590 / 590 730 / 730 960 / 960 Balance 590 / 590 730 / 730 960 / 960 Lab / Micro Data Result Diagrams: 02/11/22 07:30 02/11/22 07:30 Physical Exam Const alert, oriented x3 and no apparent distress General Appearance: cooperative HEENT normocephalic Neck supple Resp normal respiratory effort, normal air movement and clear to auscultation bilaterally Resp Narrative: Not tachypneic and he has no accessory muscle use. He is able to converse while he is ambulating. Cardio regular rate, regular rhythm and no gallops GI normal to inspection, nondistended, normoactive bowel sounds, soft to palpation and non-tender Extremity General Extremity: Negative for clubbing, cyanosis or edema Skin General Skin Exam: no breakdown Rashes: no rashes Psych cooperative and denies suicidal ideation Psych Narrative: makes good eye contact most of the time. still having difficulty staying asleep. Motivated to get better. He is getting very fatigued with 3 hours of therapy daily but, he is getting stronger and walking further. I think due to depression he has not been very active at home and he got deconditioned and weak and then he got an infection with leukocytosis and a left shift and got even weaker. Appearance: appropriate Attitude: No agitated Activity / Motor Behavior: Negative for restless Mood & Affect: depressed and flat affect; Negative for anxious Thought Content: No delusion(s) and No hallucination(s) Assessment & Plan Assessment/Plan (1) Physical debility: PLAN: Continue therapy. I suspect the infection was the final inciting factor leading to his admission to rehab for decline in function/generalized weakness. I fell sure if given some more time we will be able to get him back home with his . He is making good progress. Having him be more active at home would help this from happening again once he is in better condition. I think this means getting him out of the house for activities (OP PT) and treating his depression. (2) Infection: PLAN: The urine culture was negative. I do not know where the infection came from but the leukocytosis with left shift resolved with Rocephin. Will DC Rocephin after the seventh dose tomorrow. He may have had an infection of the stage 2 decub on the left buttock......which has since healed. I am going to recommend to Ed that he start sleeping in a bed at night rather than sitting in the recliner all day and night. (3) Generalized weakness: PLAN: He is very deconditioned from sitting around too much at home on a regular basis. Will need to impress on him that exercise is going to be a daily thing if he is going to remain independent at home. (4) Depression: QUALIFIERS: Depression Type: reactive depression Qualified Code(s): F32.9 - Major depressive disorder, single episode, unspecified PLAN: Continue sertraline 25 mg daily. If in 1 week he has had no adverse reactions will increase to more therapeutic dose of 50 mg. (5) BPH associated with nocturia: PLAN: He was started on Flomax on 02/12/2022 and so far orthostatics are negative. I told him he needs to stay adequately hydrated to help prevent orthostasis associated with Flomax. (6) Dysgeusia: PLAN: This and the sleep disturbance started at the same time, after the s troke [id number]. Dysgeusia can be associated with Lisinopril but he can not recall if he was taking Lisinopril at that time. I checked back through the old records and he has been on Lisinopril since [facility] from the acute rehab unit in 2013. He was on PRN Ambien at [facility] and Lexapro also. He tells me that he is able to smell. The PND may also be contributing to the dysgeusia. Will start Atrovent nasal spray and Klonopin 0.5 mg at 8 PM nightly to see if the dysgeusia and the sleep disturbance resolve. If there is no change in the dysgeusia would consider discontinuing the Lisinopril and substituting another antihypertensive that is not associated with dysgeusia to tx the HTN. (7) Urinary incontinence: QUALIFIERS: Urinary Incontinence type: urge incontinence Qualified Code(s): N39.41 - Urge incontinence (8) Central pain syndrome: (9) History of stroke: (10) Decubitus ulcer, stage II: PLAN: This is now healed. Will continue having him sleep in bed and use Calmoseptine. (11) Insomnia: QUALIFIERS: Insomnia type: other insomnia Qualified Code(s): G47.09 - Other insomnia Charges/Coding Visit Charges Inpatient E&M: 66093 Subs Hosp L2
--- NOTE | 2022-02-13 14:30 | CASEMGMT ---
Social Work IDT met with patient and for Team meeting. Discussed patient's progress in PT/OT and nursing. Explained Medicare approved 13 days with [facility]C 02/22. The goal is for pt to return home with . started pt on antidepressant. SW to continue to follow for support and DC planning. Will ReTeam. Laura Amador, LEAN FACILITATOR POT FEEDER
[2022-02-13 15:43] VITALS: BMI 22.4
[2022-02-13] MEDS: COVID-19 VACC, MRNA(PFIZER)/PF 30 MCG/0.3 ML SYRINGE IM (16:55)
[2022-02-13] MEDS: Tamsulosin HCl 0.4 MG Capsule PO (16:58)
[2022-02-13 19:21] VITALS: BP 122/50; PULSE 86; RESP 16; TEMP 36.7; O2SAT 95
[2022-02-13 21:37] VITALS: PULSE 77; O2SAT 96
[2022-02-13] MEDS: clonazePAM 0.5 MG Tablet PO (21:44)
[2022-02-13 22:00] VITALS: PULSE 63; RESP 16; O2SAT 94
--- NOTE | 2022-02-13 22:08 | NURSING ---
RT in room to connect overnight trending pulse-ox
[2022-02-13] MEDS: Ceftriaxone 1 GM/50 ML BAG IV (22:10)
[2022-02-13] MEDS: 0.9% Saline Lock 10 ML Syringe IV (22:10)
[2022-02-13] MEDS: Ipratropium Bromide 0.06% NASAL SPRAY 2 SPRAY NASAL (22:10)
[2022-02-13] MEDS: Atorvastatin Calcium 80 MG Tablet PO (22:20)
[2022-02-13 22:42] VITALS: BMI 22.4
[2022-02-14 06:00] VITALS: BP 116/51; BP 125/53; BP 97/55; PULSE 69; PULSE 81; PULSE 92
[2022-02-14] MEDS: Menthol/Lanolin/Calamine/Znox 113 GM Tube 1 APPLIC TOPICAL ×2 (07:01→22:25)
[2022-02-14] MEDS: Sertraline 50 MG Tablet 25 MG PO (08:27)
[2022-02-14] MEDS: Famotidine 20 MG Tablet PO (08:27)
[2022-02-14] MEDS: Lisinopril 20 MG Tablet PO (08:27)
[2022-02-14] MEDS: amLODIPine 5 MG Tablet PO (08:27)
[2022-02-14] MEDS: Ipratropium Bromide 0.06% NASAL SPRAY 2 SPRAY NASAL ×2 (08:27→22:03)
[2022-02-14] MEDS: Clopidogrel Bisulfate 75 MG Tablet PO (08:27)
[2022-02-14 08:40] VITALS: BP 116/51; PULSE 69; RESP 20; TEMP 36.4; O2SAT 97
--- NOTE | 2022-02-14 09:54 | PCM.PROGNOTE ---
Subjective Subjective Afebrile VSS - mildly orthostatic today......BP dropped but the HR did not increase and he is not on a beta sunita or any other medication that would slow your HR down. He is asymptomatic. Maintaining appropriate oxygen saturation on RA. The pulse ox from last night was reviewed and there were no desaturation events. Oral intake is good Discussed with nursing - no problems that need addressed. I reviewed the nursing notes from last night and he was incontinent twice last night per the notes. Reviewed the PT/OT/ST notes - ST will evaluate today for taste and smell. Medication list reviewed. He was started on Klonopin 0.5 mg at HS last night. Ed tells me today that he slept through the night last night without waking up until this morning. He states this is the first time he has done this since the stroke. He was seen by ST today and he has intact olfaction but he has dysgeusia. No change after 1 dose of Klonopin. Will retest him next week and he has been on the Klonopin for several days to see if there has been any improvement........he can taste tomato soup and other tomato products but could not distinguish the difference between sugar and sour. He denies chest pain, shortness of breath at rest, palpitations, lightheadedness, cephalgia. He denied pain in his left arm or his left leg today. He also denies dysuria. Objective Data Objective Data Vital Signs: Vital Signs Temp Pulse Resp BP Pulse Ox 97.5 F L 69 20 H 116/51 L 97 02/14/22 08:40 02/14/22 08:40 02/14/22 08:40 02/14/22 08:40 02/14/22 08:40 Oxygen Flow Rate (L/min) 0 Oxygen Delivery Method Room Air Weight: 160 lb 4.417 oz Body Mass Index (BMI) 22.4 Intake & Output: Intake and Output for Last 24 Hours 02/12/22 02/13/22 02/14/22 23:59 23:59 23:59 Intake Total 730 / 730 1010 / 1010 360 / 360 Balance 730 / 730 1010 / 1010 360 / 360 Lab / Micro Data Result Diagrams: 02/11/22 07:30 02/11/22 07:30 Physical Exam Const alert, oriented x3 and no apparent distress General Appearance: cooperative and comfortable Eyes conjunctivae normal and no scleral icterus Resp normal respiratory effort, normal air movement and clear to auscultation bilaterally Effort and Inspection: able to speak in complete sentences Cardio regular rate, regular rhythm and no gallops GI normal to inspection, nondistended, normoactive bowel sounds, soft to palpation and non-tender Extremity no calf tenderness and no pedal edema Assessment & Plan Assessment/Plan (1) Physical debility: PLAN: Continue physical therapy and Occupational Therapy to continue improving his strength so that he may go home at discharge rather to an extended care facility or SNF. Monitor progress daily and adjust therapy as needed. Will continue home health care at discharge for PT and OT. (2) Fall: QUALIFIERS: Encounter type: initial encounter Qualified Code(s): W19.XXXA - Unspecified fall, initial encounter (3) Infection: PLAN: Will finish 7 days of Rocephin today and he is afebrile with a normal white blood cell count now. No further antibiotics at this time. (4) Generalized weakness: PLAN: Making good progress in therapy. He is fatigued with walking however he is walking much more than he has been at home for quite some time. Continue exercise. (5) Declining functional status: PLAN: Due to depression, infection and lack of exercise/deconditioning. (6) Dysgeusia: PLAN: He is being trialed on Klonopin to see if this improves. Retest next week after he has had several doses of the Klonopin. (7) Urinary incontinence: QUALIFIERS: Urinary Incontinence type: urge incontinence Qualified Code(s): N39.41 - Urge incontinence (8) Depression: QUALIFIERS: Depression Type: reactive depression Qualified Code(s): F32.9 - Major depressive disorder, single episode, unspecified (9) Insomnia: QUALIFIERS: Insomnia type: other insomnia Qualified Code(s): G47.09 - Other insomnia PLAN: Slept much better with Klonopin last night and had no hangover or confusion or LOB this AM.....will continue. Overnight trending pulse ox revealed no desaturation events. Charges/Coding Visit Charges Inpatient E&M: 28198 Subs Hosp L2
[2022-02-14 14:07] VITALS: BMI 22.4
[2022-02-14] MEDS: Tamsulosin HCl 0.4 MG Capsule PO (17:00)
[2022-02-14 19:49] VITALS: BP 122/53; PULSE 78; RESP 16; TEMP 36.9; O2SAT 95
[2022-02-14] MEDS: clonazePAM 0.5 MG Tablet PO (20:39)
[2022-02-14] MEDS: Atorvastatin Calcium 80 MG Tablet PO (22:03)
[2022-02-14] MEDS: Ceftriaxone 1 GM/50 ML BAG IV (22:16)
[2022-02-14] MEDS: 0.9% Saline Lock 10 ML Syringe IV (22:18)
[2022-02-15 00:47] VITALS: BMI 22.4
[2022-02-15] MEDS: Menthol/Lanolin/Calamine/Znox 113 GM Tube 1 APPLIC TOPICAL ×2 (06:05→20:56)
[2022-02-15 07:32] VITALS: BP 128/56; PULSE 74; RESP 20; TEMP 36.9; O2SAT 94
[2022-02-15 07:51] VITALS: BP 125/62; BP 143/60; BP 87/43; PULSE 77; PULSE 88; PULSE 90
[2022-02-15] MEDS: Sertraline 50 MG Tablet 25 MG PO (08:21)
[2022-02-15] MEDS: Lisinopril 20 MG Tablet PO (08:21)
[2022-02-15] MEDS: amLODIPine 5 MG Tablet PO (08:21)
[2022-02-15] MEDS: Famotidine 20 MG Tablet PO (08:21)
[2022-02-15] MEDS: Clopidogrel Bisulfate 75 MG Tablet PO (08:21)
[2022-02-15] MEDS: Ipratropium Bromide 0.06% NASAL SPRAY 2 SPRAY NASAL ×2 (08:24→20:55)
[2022-02-15] MEDS: 0.9% Saline Lock 10 ML Syringe IV ×3 (13:41→22:16)
[2022-02-15 17:00] VITALS: BMI 22.4
[2022-02-15] MEDS: Tamsulosin HCl 0.4 MG Capsule PO (17:49)
[2022-02-15 19:30] VITALS: BP 112/47; PULSE 77; RESP 17; TEMP 36.8; O2SAT 96
[2022-02-15] MEDS: Atorvastatin Calcium 80 MG Tablet PO (20:56)
[2022-02-15] MEDS: clonazePAM 0.5 MG Tablet PO (20:59)
[2022-02-15] MEDS: Ceftriaxone 1 GM/50 ML BAG IV (21:20)
[2022-02-15 22:42] VITALS: BMI 22.4
--- NOTE | 2022-02-16 01:47 | NURSING ---
Reviewed and agree with APPELLATE COURT CLERK assessment.
[2022-02-16 06:00] VITALS: BP 114/52; BP 138/63; BP 84/44; PULSE 84; PULSE 91; PULSE 96
[2022-02-16] MEDS: Menthol/Lanolin/Calamine/Znox 113 GM Tube 1 APPLIC TOPICAL ×2 (06:45→21:03)
[2022-02-16 07:16] VITALS: BP 138/63; PULSE 84; RESP 18; TEMP 36.8; O2SAT 93
[2022-02-16] MEDS: Ipratropium Bromide 0.06% NASAL SPRAY 2 SPRAY NASAL ×2 (07:55→21:01)
[2022-02-16] MEDS: Lisinopril 20 MG Tablet PO (07:56)
[2022-02-16] MEDS: Famotidine 20 MG Tablet PO (07:56)
[2022-02-16] MEDS: Sertraline 50 MG Tablet 25 MG PO (07:56)
[2022-02-16] MEDS: Clopidogrel Bisulfate 75 MG Tablet PO (07:56)
[2022-02-16] MEDS: amLODIPine 5 MG Tablet PO (07:56)
[2022-02-16 09:33] VITALS: BMI 22.4
[2022-02-16] MEDS: 0.9% Saline Lock 10 ML Syringe IV ×2 (13:39→21:12)
[2022-02-16] MEDS: Tamsulosin HCl 0.4 MG Capsule PO (16:58)
[2022-02-16 19:00] VITALS: BP 129/57; PULSE 85; RESP 17; TEMP 36.7; O2SAT 96
[2022-02-16] MEDS: clonazePAM 0.5 MG Tablet PO (21:00)
[2022-02-16] MEDS: Atorvastatin Calcium 80 MG Tablet PO (21:01)
[2022-02-17 03:26] VITALS: BMI 22.4
[2022-02-17] MEDS: Menthol/Lanolin/Calamine/Znox 113 GM Tube 1 APPLIC TOPICAL ×2 (05:15→21:28)
[2022-02-17 05:16] VITALS: BP 105/50; BP 129/59; BP 75/41; PULSE 81; PULSE 89; PULSE 96
[2022-02-17 07:54] VITALS: BP 129/59; PULSE 81; RESP 18; TEMP 36.8; O2SAT 95
[2022-02-17] MEDS: Ipratropium Bromide 0.06% NASAL SPRAY 2 SPRAY NASAL ×2 (07:58→21:26)
[2022-02-17] MEDS: Clopidogrel Bisulfate 75 MG Tablet PO (07:59)
[2022-02-17] MEDS: amLODIPine 5 MG Tablet PO (07:59)
[2022-02-17] MEDS: Sertraline 50 MG Tablet 25 MG PO (07:59)
[2022-02-17] MEDS: Lisinopril 20 MG Tablet PO (07:59)
[2022-02-17] MEDS: Famotidine 20 MG Tablet PO (07:59)
[2022-02-17 11:30] VITALS: BMI 22.4
[2022-02-17] MEDS: 0.9% Saline Lock 10 ML Syringe IV (13:48)
[2022-02-17] MEDS: Tamsulosin HCl 0.4 MG Capsule PO (16:41)
[2022-02-17] MEDS: clonazePAM 0.5 MG Tablet PO (19:23)
[2022-02-17] MEDS: Atorvastatin Calcium 80 MG Tablet PO (21:27)
[2022-02-17 22:00] VITALS: BP 126/69; PULSE 79; RESP 14; TEMP 36.9; O2SAT 92
--- NOTE | 2022-02-18 03:34 | NURSING ---
Reviewed and agree with CHIEF CRNA documentation and assessment charting.
[2022-02-18] MEDS: Menthol/Lanolin/Calamine/Znox 113 GM Tube 1 APPLIC TOPICAL ×2 (05:32→20:56)
[2022-02-18 06:00] VITALS: BP 110/50; BP 130/51; BP 97/50; PULSE 75; PULSE 85; PULSE 93
[2022-02-18 07:38] VITALS: BP 110/50; PULSE 84; RESP 16; TEMP 36; O2SAT 96
[2022-02-18] MEDS: Ipratropium Bromide 0.06% NASAL SPRAY 2 SPRAY NASAL ×2 (08:56→20:56)
[2022-02-18] MEDS: Lisinopril 20 MG Tablet PO (08:58)
[2022-02-18] MEDS: amLODIPine 5 MG Tablet PO (08:58)
[2022-02-18] MEDS: Clopidogrel Bisulfate 75 MG Tablet PO (08:58)
[2022-02-18] MEDS: Famotidine 20 MG Tablet PO (08:58)
[2022-02-18] MEDS: Sertraline 50 MG Tablet 25 MG PO (08:58)
[2022-02-18 10:28] VITALS: BMI 22.4
[2022-02-18] MEDS: Tamsulosin HCl 0.4 MG Capsule PO (16:44)
[2022-02-18 19:07] VITALS: BP 110/52; PULSE 72; RESP 17; TEMP 36.6; O2SAT 95
[2022-02-18 20:38] VITALS: BMI 22.4
[2022-02-18] MEDS: clonazePAM 0.5 MG Tablet PO (20:54)
[2022-02-18] MEDS: Atorvastatin Calcium 80 MG Tablet PO (20:56)
[2022-02-18 22:00] VITALS: PULSE 76; RESP 16; O2SAT 94
[2022-02-19] MEDS: Menthol/Lanolin/Calamine/Znox 113 GM Tube 1 APPLIC TOPICAL ×2 (06:00→21:42)
[2022-02-19 07:42] VITALS: BP 116/62; BP 144/59; BP 84/49; PULSE 86; PULSE 90; PULSE 94
[2022-02-19 07:43] VITALS: BP 144/59; PULSE 94; RESP 16; TEMP 36.6; O2SAT 95
[2022-02-19] MEDS: Sertraline 50 MG Tablet 25 MG PO (07:54)
[2022-02-19] MEDS: Ipratropium Bromide 0.06% NASAL SPRAY 2 SPRAY NASAL ×2 (07:55→21:42)
[2022-02-19] MEDS: Clopidogrel Bisulfate 75 MG Tablet PO (07:55)
[2022-02-19] MEDS: Lisinopril 20 MG Tablet PO (07:55)
[2022-02-19] MEDS: Famotidine 20 MG Tablet PO (07:55)
[2022-02-19] MEDS: amLODIPine 5 MG Tablet PO (07:55)
--- NOTE | 2022-02-19 11:46 | PN_ITS ---
Subjective Subjective Afebrile VSS-blood pressure is controlled. Orthostatics are positive today. The blood pressure was 144/59 lying down, 116/62 sitting and dropped to 84/49 with standing. Heart rate is within normal limits. Maintaining appropriate oxygen saturation on RA Oral intake is adequate He is still incontinent of urine, mostly at night. He is not alerting nursing when he needs to urinate and then is incontinent. Discussed with nursing - no problems that need addressed Reviewed the PT/OT/ST notes Medication list reviewed. He is tolerating sertraline with no adverse side effects. Affect is still flat. The Flomax has not changed the incontinence. He denies lightheadedness today. Ed tells me that he is now sleeping through the night but he awakens wet in the AM. He sometimes has incontinence during the day but, it is urge incontinence. He denies dysuria. He denies cough, ST, CP, SOB, lightheadedness, vertigo. He continues to have central pain S. with pain in the left arm and leg. He rates it a 2/10. No calf pain. He tells me that when he awakens in the AM he feels a little hung over and feels he is moving slower than prior to starting the Klonopin. All lab was personally reviewed. Sodium is low at 128. Creat is stable at 0.87. BUN is 14 which is a little higher than it hand been. Total bilirubin is down to 1.1 but the transaminases are increased at 73 and 91. Alkaline phosphatase is normal. Urine sodium was not less than 10 when checked in the hospital and the TSH and cortisol were normal. The serum osmolality is low and the urine osmolality is less than maximally dilute.......This is consistent with SIADH, possibly due to the old stroke. Sertraline and lisinopril may be exacerbating this. Objective Data Objective Data Vital Signs: Vital Signs Temp Pulse Resp BP Pulse Ox 97.9 F 94 16 144/59 H 95 02/19/22 07:43 02/19/22 07:43 02/19/22 07:43 02/19/22 07:43 02/19/22 07:43 Oxygen Flow Rate (L/min) 0 Oxygen Delivery Method Room Air Weight: 160 lb 4.417 oz Body Mass Index (BMI) 22.4 Intake & Output: Intake and Output for Last 24 Hours 02/17/22 02/18/22 02/19/22 23:59 23:59 23:59 Intake Total 1080 / 1080 100 / 100 480 / 480 Balance 1080 / 1080 100 / 100 480 / 480 Lab / Micro Data Result Diagrams: 02/19/22 12:45 02/19/22 12:45 Physical Exam Const alert, oriented x3 and no apparent distress Constitutional Narrative: I watched him ambulating and and then lowering himself into the chair after ambulation today and he seems to be moving slower. General Appearance: cooperative HEENT moist oral mucous membranes Resp normal respiratory effort and clear to auscultation bilaterally Resp Narrative: able to speak in full sentences. Auscultation: diminished lung sounds localized (in the bases) Cardio regular rate, regular rhythm, no rub and no gallops GI normal to inspection, nondistended, normoactive bowel sounds, soft to palpation, non-tender and non-distended Extremity no clubbing, cyanosis or edema Skin General Skin Exam: no breakdown Rashes: No rashes noted Neuro Neuro Narrative: Left hemiparesis is unchanged. Moves very slowly. Has no cogwheel rigidity. Psych cooperative Psych Narrative: Flat affect. He is making jokes and he is making good eye contact.. When I ask him if he feels depressed he says NO. I asked if he thinks he is ready to go home and he said yes. I asked if he thinks his would be able to provide enough assistance and he told me she has been doing it for years. I do not think he appreciates that she is older now and that she has MS. Appearance: appropriate Assessment & Plan Assessment/Plan (1) Physical debility: PLAN: Will have his come in for family education prior to DC to see if she feels she can adequately provide the assistance Ed needs. Will need HHC at DC if she does go home. (2) Generalized weakness: PLAN: Has made some progress with therapy. Not sure where the infection was at admission but, the leukocytosis resolved with Rocephin. (3) Declining functional status: PLAN: I suspect as Ed and his age that he will no longer be able to manage at home. It will be very important that Ed continues to exercise daily as an OP if he is going to be able to maintain the progress he has made in rehab. I plan on discussing this with them prior to DC and maybe put it out the re that they may want to consider assisted living if that is a possibility. (4) HTN (hypertension): PLAN: Will decrease the Lisinopril to 10 mg because of the hyponatremia and recheck the sodium on Saturday. (5) Central pain syndrome: PLAN: He has 2/10 pain and does not think he needs treated for this. (6) Anxiety: (7) Depression: QUALIFIERS: Depression Type: reactive depression Qualified Code(s): F32.9 - Major depressive disorder, single episode, unspecified PLAN: DC the Sertraline - I suspect it is contributing to hyponatremia. 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 Would like to keep the sodium > 130 Charges/Coding Visit Charges Inpatient E&M: 24452 Subs Hosp L2
[2022-02-19 12:53] LABS: Hematocrit 42.1 % (40-54); Hemoglobin 13.7 g/dL (13.0-16.5)
[2022-02-19 13:57] LABS: ALB/GLOB Ratio 0.8 RATIO (0.9-2.4); AST(SGOT) 73 U/L (15-37); Alanine Aminotransfer ALT/SGPT 91 U/L (16-61); Albumin, Serum 3.4 g/dL (3.2-5.0); Alkaline Phosphatase 94 U/L (45-117); Anion Gap 7 (5-15); BUN 14 mg/dL (7-18); BUN/Creat Ratio 16.1 RATIO (10-20); Calcium,Total 9.3 mg/dL (8.5-10.1); Chloride 94 mmol/L (98-107); Creatinine, Serum 0.87 mg/dL (0.70-1.30); EST Glomerular Filtration Rate 90 mL/min (>60); Est Glom Filt Rate - Afr Amer 109 mL/min (>60); Estimated Creatinine Clearance 71.96 ml/min; Globulin 4.4 g/dL (2.2-4.2); Glucose 129 mg/dL (74-106); Potassium 3.9 mmol/L (3.5-5.1); Protein, Total 7.8 g/dL (6.4-8.2); Sodium Level 128 mmol/L (136-145)
[2022-02-19 16:25] VITALS: BMI 22.4
--- NOTE | 2022-02-19 16:27 | CASEMGMT ---
Social Work Followed up with pt on DC plans for 02/22. Pt wants to DC home but needs to ensure she can take care of him. will complete therapy family training tomorrow. SW to follow up after that to discuss DC needs. Laura Amador, PAPERHANGER APPRENTICE EXHIBITIONS AND COLLECTIONS MANAGER
[2022-02-19] MEDS: clonazePAM 0.5 MG Tablet 0.25 MG PO (21:41)
[2022-02-19] MEDS: Atorvastatin Calcium 80 MG Tablet PO (21:42)
[2022-02-19 21:57] VITALS: BP 153/60; PULSE 91; RESP 16; TEMP 36.3; O2SAT 95
[2022-02-19 22:00] VITALS: PULSE 83; RESP 16; O2SAT 95; BMI 22.4
[2022-02-20] MEDS: Menthol/Lanolin/Calamine/Znox 113 GM Tube 1 APPLIC TOPICAL ×2 (05:23→22:04)
[2022-02-20 06:00] VITALS: BP 104/56; BP 120/60; BP 139/64; PULSE 100; PULSE 82; PULSE 87
[2022-02-20 07:35] VITALS: BP 139/64; PULSE 83; RESP 16; TEMP 36.8; O2SAT 92
[2022-02-20] MEDS: Ipratropium Bromide 0.06% NASAL SPRAY 2 SPRAY NASAL ×2 (09:05→22:04)
[2022-02-20] MEDS: Clopidogrel Bisulfate 75 MG Tablet PO (09:05)
[2022-02-20] MEDS: Lisinopril 10 MG Tablet PO (09:05)
[2022-02-20] MEDS: Famotidine 20 MG Tablet PO (09:05)
[2022-02-20] MEDS: amLODIPine 5 MG Tablet PO (09:05)
[2022-02-20 15:01] VITALS: BMI 22.4
--- NOTE | 2022-02-20 17:24 | PCM.PROGNOTE ---
Subjective Subjective Afebrile VSS - BP remains controlled. Lisinopril was decreased to 10 mg daily yesterday due to worsening hyponatremia. Sertraline was also decreased because of this. Orthostatics are still positive today but the blood pressure standing was 104/56 and the systolic standing yesterday was 80. He denies lightheadedness. Maintaining appropriate oxygen saturation on RA Oral intake is fair. He is eating tomato soup and he always drinks his Ensure at meals. Discussed with nursing - they reiterated to me that he is incontinent at night and sometimes during the day. Reviewed the PT/OT/ST notes - he is still ambulating very slowly but is walking much further now than at admission. Medication list reviewed. Ed tells me that he slept well last night.......he had a decreased dose of Klonopin last night and he does not feel hung over this morning. He tells me his came in for family training today and she feels that she will be able to handle him at home. Ed continues to tell me that the pain in his left arm and leg is at a 2 and he does not require any additional treatment. He denies dysuria. He denies chest pain, shortness of breath, cough, sore throat, nasal congestion, lightheadedness. ED is more alert today and he has more color in his face. He does not look as fatigued and he is smiling. Lungs - CTA H- RRR, no gallop Abdomen-soft, nontender, nondistended, normal bowel sounds present, no guarding with palpation No peripheral edema, no calf tenderness No rashes and no wounds Impressions 1. physical debility with declining functional status due to infection - not sure of the source but, Leukocytosis resolved on Rocephin and his strength has improved considerably. WBC is now normal 2. 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 Will need to continue with [facility] PT/OT at home post DC. I stressed to Ed and his that if he is going to be able to maintain his current level of function he is going to have to exercise every day to maintain strength. 3. Ed denies depression but, I feel he was depressed at admission. I stopped the Sertraline yesterday due to increasing hyponatremia. Would consider Remeron in the future if his appetite and intake drops off again or his motivation wanes. 4. Hypotonic Hyponatremia - Sertraline DC'd and the Lisinopril was decreased yesterday as they can both cause hyponatremia. He has no edema and the Lungs are CTA. Will recheck the sodium in the AM. Objective Data Objective Data Vital Signs: Vital Signs Temp Pulse Resp BP Pulse Ox 98.2 F 83 16 139/64 H 92 02/20/22 07:35 02/20/22 07:35 02/20/22 07:35 02/20/22 07:35 02/20/22 07:35 Oxygen Flow Rate (L/min) 0 Oxygen Delivery Method Room Air Weight: 160 lb 4.417 oz Body Mass Index (BMI) 22.4 Intake & Output: Intake and Output for Last 24 Hours 02/18/22 02/19/22 02/20/22 23:59 23:59 23:59 Intake Total 100 / 100 1080 / 1080 540 / 540 Output Total 200 / 200 Balance 100 / 100 1080 / 1080 340 / 340 Lab / Micro Data Result Diagrams: 02/19/22 12:45 02/19/22 12:45 Charges/Coding Visit Charges Inpatient E&M: 30359 Subs Hosp L2
[2022-02-20 22:00] VITALS: BP 109/53; PULSE 84; PULSE 95; RESP 16; TEMP 37.1; O2SAT 97; BMI 22.4
[2022-02-20] MEDS: clonazePAM 0.5 MG Tablet 0.25 MG PO (22:02)
[2022-02-20] MEDS: Atorvastatin Calcium 80 MG Tablet PO (22:05)
--- NOTE | 2022-02-21 04:48 | NURSING ---
urine obtained for labs and sent to lab at 0443.
[2022-02-21] MEDS: Menthol/Lanolin/Calamine/Znox 113 GM Tube 1 APPLIC TOPICAL ×2 (04:51→21:00)
[2022-02-21 04:54] LABS: Urine Sodium 40 mmol/L (Not Establ.)
[2022-02-21 04:57] LABS: Osmolality, Urine 215 mOsm/KG
--- NOTE | 2022-02-21 05:00 | NURSING ---
Addendum entered by Ambar Larson 02/21/22 05:02: Bladder scan done, after incontinence, and residual was 461 cc. Original Note: 0400 pt changed for large incontinence of urine, ADLs completed at this time, pt then voided 210 cc, urine sample obtained and sent to lab.
--- NOTE | 2022-02-21 05:22 | NURSING ---
Reviewed and agree with PILER assessment.
[2022-02-21 06:00] VITALS: BP 110/64; BP 122/62; BP 149/62; PULSE 75; PULSE 89; PULSE 90
[2022-02-21 06:21] LABS: Anion Gap 6 (5-15); BUN 14 mg/dL (7-18); BUN/Creat Ratio 22.4 RATIO (10-20); Calcium,Total 9.4 mg/dL (8.5-10.1); Chloride 98 mmol/L (98-107); Creatinine, Serum 0.62 mg/dL (0.70-1.30); EST Glomerular Filtration Rate 132 mL/min (>60); Est Glom Filt Rate - Afr Amer 160 mL/min (>60); Glucose 100 mg/dL (74-106); Potassium 4.1 mmol/L (3.5-5.1); Sodium Level 132 mmol/L (136-145)
[2022-02-21 07:48] VITALS: BP 149/62; PULSE 75; RESP 16; TEMP 36.6; O2SAT 94
[2022-02-21] MEDS: Clopidogrel Bisulfate 75 MG Tablet PO (07:50)
[2022-02-21] MEDS: Ipratropium Bromide 0.06% NASAL SPRAY 2 SPRAY NASAL ×2 (07:50→21:00)
[2022-02-21] MEDS: Famotidine 20 MG Tablet PO (07:50)
[2022-02-21] MEDS: Lisinopril 10 MG Tablet PO (07:50)
[2022-02-21] MEDS: amLODIPine 5 MG Tablet PO (07:51)
--- NOTE | 2022-02-21 09:22 | PN_ITS ---
Subjective Subjective Afebrile VSS-systolic blood pressure is mildly elevated at times since the lisinopril was decreased to 10 mg daily. Heart rate is within normal limits. He is still somewhat orthostatic. Blood pressure lying down was 149/62 and sitting was 110/64. With standing the blood pressure came up to 122/62 which is an im provement. He denies lightheadedness. Maintaining appropriate oxygen saturation on RA Oral intake is approximately 1 L to 1100 cc daily. Weight is stable. Remains incontinent of urine at times. Discussed with nursing -the post void residual at 4 AM this morning was 461. Flomax was discontinued 2 days ago due to orthostatic hypotension. Reviewed the PT/OT/ST notes Medication list reviewed. All lab was personally reviewed. With discontinuation of sertraline and decreasing lisinopril the sodium is up to 132 today. Potassium is 4.1. BUN is stable at 14 and the creatinine is 0.62 and stable. Post void residual at 1030 is 173. Objective Data Objective Data Vital Signs: Vital Signs Temp Pulse Resp BP Pulse Ox 97.9 F 75 16 149/62 H 94 02/21/22 07:48 02/21/22 07:48 02/21/22 07:48 02/21/22 07:48 02/21/22 07:48 Oxygen Flow Rate (L/min) 0 Oxygen Delivery Method Room Air Weight: 160 lb 11.472 oz Body Mass Index (BMI) 22.4 Intake & Output: Intake and Output for Last 24 Hours 02/19/22 02/20/22 02/21/22 23:59 23:59 23:59 Intake Total 1080 / 1080 1020 / 1020 Output Total 200 / 200 210 / 210 Balance 1080 / 1080 820 / 820 -210 / -210 Lab / Micro Data Result Diagrams: 02/19/22 12:45 02/21/22 05:27 Labs: Laboratory Results - last 24 hr 02/21/22 04:30: Urine Osmolality 215, Ur Random Sodium 40 02/21/22 05:27: Sodium 132 L, Potassium 4.1, Chloride 98, Carbon Dioxide 28.0, Anion Gap 6, BUN 14, Creatinine 0.62 L, Estim Creat Clear Calc 62.60, Est GFR (MDRD) Af Amer 160, Est GFR (MDRD) Non-Af 132, BUN/Creatinine Ratio 22.4 H, Glucose 100, Calcium 9.4 Physical Exam Const alert, oriented x3 and no apparent distress Constitutional Narrative: talkative, cooperative General Appearance: comfortable and well kempt Resp clear to auscultation bilaterally Effort and Inspection: able to speak in complete sentences Cardio regular rate, regular rhythm and no gallops GI normal to inspection, nondistended, normoactive bowel sounds, soft to palpation and non-tender Extremity no calf tenderness and no pedal edema Skin General Skin Exam: no breakdown Rashes: no rashes Assessment & Plan Assessment/Plan (1) Physical debility: (2) Generalized weakness: (3) Insomnia disorder: (4) SIADH (syndrome of inappropriate ADH production): (5) Depression: QUALIFIERS: Depression Type: reactive depression Qualified Code(s): F32.9 - Major depressive disorder, single episode, unspecified PLAN: 1. Plan DC home tomorrow with [facility]. No DME needed. Will follow up with Dr. Martini. He was given exercises to do at least once daily at home by the therapists. 2. the Sodium is better off Sertraline and with the decrease in the Lisinopril. If an antidepressant is needed going forward would consider Remeron. 3. Will continue Klonopin 0.25 mg Q HS at DC since he is sleeping well now without getting up every 1-2 hours to urinate. since he is better rested he may not need an antidepressant. Charges/Coding Visit Charges Inpatient E&M: 16278 Subs Hosp L2
--- NOTE | 2022-02-21 09:41 | CASEMGMT ---
Social Work Contacted to follow up about how therapy training yesterday and plan for DC. stated it went well, and she feels comfortable assisting pt at home. Offered HHC vs OP therapy. elected HHC. Inquired about preference of HHC - [facility]. No DME needs identified. to transport. Referral made to [facility] PT/OT/SN. Plan: DC home 02/22 with , [facility] PT/OT/SN SAIGE MoralesW
[2022-02-21 09:54] LABS: AST(SGOT) 64 U/L (15-37); Alanine Aminotransfer ALT/SGPT 89 U/L (16-61); Albumin, Serum 3.1 g/dL (3.2-5.0); Alkaline Phosphatase 80 U/L (45-117); Globulin 3.8 g/dL (2.2-4.2); Protein, Total 6.9 g/dL (6.4-8.2)
[2022-02-21 13:24] VITALS: BMI 22.4
[2022-02-21 20:57] VITALS: BP 121/56; PULSE 89; RESP 16; TEMP 36.2; O2SAT 96
[2022-02-21] MEDS: clonazePAM 0.5 MG Tablet 0.25 MG PO (20:59)
[2022-02-21 21:00] VITALS: PULSE 89; RESP 16; O2SAT 96
[2022-02-21] MEDS: Atorvastatin Calcium 80 MG Tablet PO (21:00)
[2022-02-22 03:59] VITALS: BMI 22.4
[2022-02-22] MEDS: Menthol/Lanolin/Calamine/Znox 113 GM Tube 1 APPLIC TOPICAL (05:16)
[2022-02-22 05:17] VITALS: BP 110/58; BP 125/65; BP 126/61; PULSE 79; PULSE 83; PULSE 91
[2022-02-22 07:42] VITALS: BP 125/65; PULSE 79; RESP 18; TEMP 36.8; O2SAT 97
--- NOTE | 2022-02-22 09:32 | DCINST_ITS ---
Discharge Instructions Diet Discharge Diet: No restrictions and - (Drink at least 2 Ensures a day to keep your nutrition up and prevent muscle loss. ) Activity Discharge Activity: Return to Normal Activity and May Not Drive Weight Bearing Status: Full weight bearing Keep extremity elevated above heart level: Legs Dressing / Incision Call your doctor if you observe: Fever of 101 or Higher, Inability to urinate, Inability to have a bowel movement, Shortness of breath, Dizziness, Fainting spells, Chest pain, Increased palpitations (irregular heartbeat) and Uncontrolled pain Follow Up Care Please Follow Up With: Kenny Martini When: within the next 7-10 days Test Results: Test results from this visit will be discussed in further detail at your follow-up appointment, if applicable. Pending Tests Upon Discharge: none Discharge Plan Admission Admit Date/Time: 02/09/22 16:50 Primary Reason for Your Visit: Debility/Functional decline Attending Provider: Sole Hdz Primary Care Provider: Kenny Martini Instructions Patient Instructions: Pressure Ulcer How Form, Depression Affects Your Mind ..., Depression: Tips to Help Yourself, Preventing Pressure Injuries, ED OVERACTIVE BLADDER Male Adult Additional Instructions / Restrictions: 1. You have made great progress in therapy. I think you will be able to do well at home. I suspect that what happened to lead to the decline in function you experienced is you got an infection. I do not exactly know where the infection was but, it was not in the urine. I suspect the open sore on your bum got infected because it was close to the anus. You had an elevated WBC count at admission to the hospital and this resolved with the antibiotics. The wound is closed now. These types of wounds occur because you spend too much time on your backside sitting and it creates pressure which leads to skin breakdown. This causes a ulceration at the site that is called a decubitus ulcer. Remember to get up and walk during the day at least every 1-2 hours. When you are sitting in the chair turn you body in the chair periodically to put all the pressure on 1 cheek/buttock and then turn the other way to put the pressure on the other cheek. If you have recurrent pressure injuries you may need to get a pressure relief cushion to decrease the pressure over the beverly prominence. These ulcers can easily get infected due to their proximity to the anus. 2. In order to keep your strength up you need to take in adequate calor ies/protein. Continue with the Ensure shakes at least twice a day. You may also want to add some protein powder to your tomato soup......it does not change the flavor and it adds protein. 3. You have urge urinary incontinence and this is due to overactive bladder. I have given you some literature to read at you leisure about urge incontinence and how to decrease this. You may want to go into the bathroom every couple hours so you can try and urinate. This is likely due to the stroke BUT, caffeine increases bladder irritability and I would try and stay away from caffeine if I was you. Carbonated beverages (like pop/soda) also increase bladder irritability. 4. The Klonopin at bedtime has helped you sleep better. Sleep deprivation leads to fatigue, depression and memory loss. I had you on an antidepressant called Sertraline(Zoloft) but the sodium in your blood dropped to 128 (normal is 135-145). this is a possible side effect of this drug. the sodium is up to 132 now since we decreased the Lisinopril dose and discontinued the Sertraline. As long as your sodium stays above 130 we are GOOD. Consider drinking a bottle of Gatorade or Pedialyte every day. 5. Your blood pressure drops when you go from sitting to standing. This got worse when we started Flomax which is the medication we tried for the prostate to see if it would help with the incontinence. It did not help and the BP dropped even more so it was discontinued. Because of the drop in BP when you are sitting or standing I decreased the Lisinopril dose to 10 mg daily. Your BP is controlled and it only drops a little when you stand. 6. There is a cream we have been putting on your bottom twice a day and it is called Calmoseptine. I gave you a prescription for this medication. It is a moisture barrier cream and it decreased the risk for skin breakdown on your bottom because tissues that is constantly moist breaks down and creates an ulcer much faster than if the tissue is protected from moisture. 7. It has been a pleasure meeting you Ed and I (and the rest of the staff) have appreciated your sense of humor and your motivation. I am glad you are able to go home. If you ever need us again in the future we will be glad to welcome you back. If you or Maura have any questions after you leave please do not hesitate to call me. Office: [phone] Rehab unit: [phone] Discharge Orders/Prescriptions Prescriptions: New clonazepam 0.5 mg Tablet 0.25 mg PO 1999 Qty: 16 RF: 0 lisinopril 10 mg Tablet 10 mg PO DAILY Qty: 30 RF: 0 ipratropium bromide 42 mcg (0.06 %) [place],Non-Aerosol 2 spray NASAL BID Qty: 2 RF: 0 menthol-zinc oxide [Calmoseptine] 0.44-20.6 % Ointment 1 applic topical BID@0600,2200 Qty: 1 RF: 6 Continued acetaminophen 500 MG tablet 1,000 mg PO Q6H PRN PRN (Reason: pain) RF: 0 famotidine 20 MG tablet 20 mg PO DAILY RF: 0 atorvastatin 80 MG tablet 80 mg PO QHS RF: 0 clopidogrel 75 MG tablet 75 mg PO DAILY RF: 0 amlodipine 5 MG tablet 5 mg PO DAILY RF: 0 aspirin 81 mg tablet,delayed release (DR/EC) 81 mg PO DAILY RF: 0 Discontinued lisinopril 20 MG tablet 20 mg PO DAILY RF: 0 Referrals / Follow Up: Kenny Martini MD [Primary Care Provider] - 03/02/22 11:20 am Disposition Disposition (needs filled in before D/C Order can be placed): Home Health Service
[2022-02-22] MEDS: Clopidogrel Bisulfate 75 MG Tablet PO (09:35)
[2022-02-22] MEDS: amLODIPine 5 MG Tablet PO (09:35)
[2022-02-22] MEDS: Lisinopril 10 MG Tablet PO (09:35)
[2022-02-22] MEDS: Ipratropium Bromide 0.06% NASAL SPRAY 2 SPRAY NASAL (09:35)
[2022-02-22] MEDS: Famotidine 20 MG Tablet PO (09:35)
[2022-02-22 10:48] VITALS: BP 128/59; PULSE 86; RESP 16; TEMP 36.7; O2SAT 99
--- NOTE | 2022-02-22 10:50 | DS.PCM_ITS ---
Providers Date of Admission: 02/09/22 Date of Discharge: 02/22/22 Primary Care Physician: Dr. Kenny Martini MD Reason For Visit: DEBILITY due to infection with functional decline Diagnosis Discharge Diagnosis (1) Physical debility: Status: Chronic Code(s): R53.81 - Other malaise (2) Infection: Status: Acute Code(s): B99.9 - Unspecified infectious disease (3) Generalized weakness: Status: Acute Code(s): R53.1 - Weakness (4) Declining functional status: Status: Resolved Code(s): R53.81 - Other malaise (5) Insomnia disorder: Status: Acute Code(s): G47.00 - Insomnia, unspecified (6) Dysgeusia: Status: Chronic Code(s): R43.2 - Parageusia (7) HTN (hypertension): Status: Chronic Code(s): I10 - Essential (primary) hypertension (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 Code(s): G89.0 - Central pain syndrome (9) Anxiety: Status: Resolved Code(s): F41.9 - Anxiety disorder, unspecified (10) Depression: Status: Acute Code(s): F32.9 - Major depressive disorder, single episode, unspecified Qualifiers: Depression Type: reactive depression Qualified Code(s): F32.9 - Major depressive disorder, single episode, unspecified (11) History of stroke: Status: Acute Code(s): Z86.73 - Personal history of transient ischemic attack (TIA), and cerebral infarction without residual deficits (12) SIADH (syndrome of inappropriate ADH production): Status: Acute Code(s): E22.2 - Syndrome of inappropriate secretion of antidiuretic hormone Plan: OK home with [facility] for PT/OT/SN. No DME needs at DC. Medications at Discharge Home Medications acetaminophen 1,000 mg PO Q6H PRN PRN 12/09/19 famotidine 20 mg PO DAILY 12/09/19 amlodipine 5 mg PO DAILY 02/09/22 aspirin 81 mg PO DAILY 02/09/22 atorvastatin 80 mg PO QHS 02/09/22 clopidogrel 75 mg PO DAILY 02/09/22 clonazepam 0.25 mg PO 2000 #16 tab 02/22/22 ipratropium bromide 2 spray NASAL BID #2 bottle 02/22/22 lisinopril 10 mg PO DAILY #30 tab 02/22/22 menthol-zinc oxide [Calmoseptine] 1 applic TOPICAL BID@0600,2200 #1 tube 02/22/22 Hospital Course Operations None Procedures None Summary of Care Provided Minutes Spent on Discharge: 40 Hospital Course: REX DAY, is a 76 YO M who presented to the ER at [facility] on 02/08/22 after having a fall at home. He reportedly had been getting weaker each day over the past week per his . He had a stroke in the past (2013) and has persistent L hemiplegia. He had no significant injuries and no XRAYS were done. Lab showed an elevated white blood cell count at 14.8 with a left shift. Hemoglobin was normal at 14.6 and platelets were also within normal limits. Sodium was low at 130. Bilirubin was elevated at 1.9 and the other liver function studies were within normal limits. Creatinine was increased over baseline at 1.12. TSH was normal. A.m. cortisol was normal. Urine sodium was 17 and the urine osmolality was 194 which is less than maximally dilute. Urine was positive for nitrites and the leukocyte Estrace was 500. The preliminary on the urine culture was no growth. Ed lives with his spouse and she could no longer take care of him at home and he was admitted with debility. The plan was to place him if he did not significantly improve with therapy. His told him that he getting slower in doing things. He was requiring max assist of 2 just to stand and pivot. He is incontinent of urine chronically and told me that he gets up every night several times to urinate. He was total assist with toileting. Because of the frequent nocturia he had not slept well for years. He was admitted to the rehab unit at [facility] on 02/09/22 for 3 hours of therapy daily to restore function at or near his previous level. It was presumed in the hospital that he had a UTI but, the culture grew < 1,000 colonies of mixed GM + organisms. Ed told me that he had been told in the past that he had a fistula or a cyst on his backside. The area was examined and there was a small opening in the skin adjacent to the coccyx with a small amount of DC. He also admitted to fecal urgency and loose stool for the previous few years. His affect was flat at admission and he had sx of depression including but, no limited to decreased appetite with wt loss, insomnia, lack of motivation, lack of interest in doing the things he had previously done for fun, etc. He was agreeable to a trial of an antidepressant and he was started on Sertraline. He was instructed to limit himself to one diet coke a day since caffeine is a bladder irritant and can lead to urgency and urge incontinence. He had been told in the past that he had sleep apnea, at the time of the stroke. An overnight trending pulse ox was done and there were no desaturation events....he has lost a lot of weight since the stroke. Ed was restarted on Rocephin due to suspected infected cyst......possibly a pilonidal cyst. the leukocytosis resolved and he started to be able to do more in therapy. He tolerated the Sertraline and his mood improved but, he still was not sleeping. He was started on Klonopin at night and he slept well with 0.25 mg at HS. He was alert in the AM and felt better than he had felt in the years since his stroke. Prior to DC the small tract near the coccyx was closed with no erythema and no discharge. Prior to discharge and was able to ascend/descend three 4 inch steps with 1 handrail at contact-guard assist. He had ambulated up to 117 feet with a hemiwalker at contact-guard assist. He was able to come to stand from a seated position at standby assist/contact-guard assist. He required only minimal assistance with bathing he was able to dress his upper and lower body at standby/supervision level. He was standby assist for toilet transfer and toileting. Contact-guard assist with tub/shower transfer. Ed's was brought in for family training prior to his discharge to see if she would be able to manage assisting him at home. She felt confident she could manage at home and and was discharged on 02/22/2022. He will follow-up with Dr. Kenny Martini for primary care. Home health care with [facility] was arranged by the manager social responsibility and and will have PT/OT/SN. There were no DME needs identified prior to discharge. Physical Exam Const alert, oriented x3 and no apparent distress General Appearance: cooperative and comfortable HEENT normocephalic and moist oral mucous membranes Eyes PERRL, conjunctivae normal and no scleral icterus Neck No nuchal rigidity, no lymphadenopathy and supple Chest Chest: symmetrical chest wall rise Resp normal respiratory effort, normal air movement and clear to auscultation bilaterally Effort and Inspection: able to speak in complete sentences; Negative for labored, actively coughing or uses accessory muscles Auscultation: diminished lung sounds localized (in the bases) Cardio regular rate, regular rhythm, no rub and no gallops Palpation: abnormal PMI displaced PMI and other (the PMI is below the rib cage on the Midline in the left chest.) Rate: regular rate GI normal to inspection, nondistended, normoactive bowel sounds, soft to palpation, non-tender and non-distended Testes: Negative for testicular swelling Extremity no clubbing, cyanosis or edema, no calf tenderness and no pedal edema General Extremity: Negative for clubbing, cyanosis or edema Skin General Skin Exam: no breakdown Rashes: no rashes and No rashes noted Psych thought process normal, cooperative and denies suicidal ideation Appearance: grossly normal and appropriate Attitude: calm and No agitated Activity / Motor Behavior: appropriate eye contact; Negative for restless Speech: normal speech Mood & Affect: depressed, tearful, flat affect and other he was tearful with me when talking about the activities he used to enjoy and now can not do because of the stroke. He seems to enjoy less and less and even quit playing chess on- line. ; Negative for anxious Thought Content: normal thought content, No suicidality, No delusion(s), No hallucination(s), No depersonalization and No rumination(s) Memory / Cognition: memory grossly intact Weight / BMI Weight Weight: 160 lb 11.472 oz Body Mass Index (BMI) 22.4 ABG / Lab / Microbiology Data Result Diagrams: 02/19/22 12:45 02/21/22 05:27 D/C Instructions Discharge Diet: No restrictions and - (Drink at least 2 Ensures a day to keep your nutrition up and prevent muscle loss. ) Weight Bearing Status: Full weight bearing Keep extremity elevated above heart level: Legs Call your doctor if you observe: Fever of 101 or Higher, Inability to urinate, Inability to have a bowel movement, Shortness of breath, Dizziness, Fainting spells, Chest pain, Increased palpitations (irregular heartbeat) and Uncontrolled pain Pending Tests Upon Discharge: none Please Follow Up With: Kenny Martini When: within the next 7-10 days Meaningful Use Info Meaningful Use Diagnoses (Choose all that apply): None applicable Discharge Plan Admission Admit Date/Time: 02/09/22 16:50 Primary Reason for Your Visit: Debility/Functional decline Attending Provider: Soel Hdz Primary Care Provider: Kenny Martini Instructions Patient Instructions: Pressure Ulcer How Form, Depression Affects Your Mind ..., Depression: Tips to Help Yourself, Preventing Pressure Injuries, ED OVERACTIVE BLADDER Male Adult Additional Instructions / Restrictions: 1. You have made great progress in therapy. I think you will be able to do well at home. I suspect that what happened to lead to the decline in function you experienced is you got an infection. I do not exactly know where the infection was but, it was not in the urine. I suspect the open sore on your bum got infected because it was close to the anus. You had an elevated WBC count at admission to the hospital and this resolved with the antibiotics. The wound is closed now. These types of wounds occur because you spend too much time on your backside sitting and it creates pressure which leads to skin breakdown. This causes a ulceration at the site that is called a decubitus ulcer. Remember to get up and walk during the day at least every 1-2 hours. When you are sitting in the chair turn you body in the chair periodically to put all the pressure on 1 cheek/buttock and then turn the other way to put the pressure on the other cheek. If you have recurrent pressure injuries you may need to get a pressure relief cushion to decrease the pressure over the beverly prominence. These ulcers can easily get infected due to their proximity to the anus. 2. In order to keep your strength up you need to take in adequate calories/protein. Continue with the Ensure shakes at least twice a day. You may also want to add some protein powder to your tomato soup......it does not change the flavor and it adds protein. 3. You have urge urinary incontinence and this is due to overactive bladder. I have given you some literature to read at you leisure about urge incontinence and how to decrease this. You may want to go into the bathroom every couple hours so you can try and urinate. This is likely due to the stroke BUT, caffeine increases bladder irritability and I would try and stay away from caffeine if I was you. Carbonated beverages (like pop/soda) also increase bladder irritability. 4. The Klonopin at bedtime has helped you sleep better. Sleep deprivation leads to fatigue, depression and memory loss. I had you on an antidepressant called Sertraline(Zoloft) but the sodium in your blood dropped to 128 (normal is 135-145). this is a possible side effect of this drug. the sodium is up to 132 now since we decreased the Lisinopril dose and discontinued the Sertraline. As long as your sodium stays above 130 we are GOOD. Consider drinking a bottle of Gatorade or Pedialyte every day. 5. Your blood pressure drops when you go from sitting to standing. This got worse when we started Flomax which is the medication we tried for the prostate to see if it would help with the incontinence. It did not help and the BP d ropped even more so it was discontinued. Because of the drop in BP when you are sitting or standing I decreased the Lisinopril dose to 10 mg daily. Your BP is controlled and it only drops a little when you stand. 6. There is a cream we have been putting on your bottom twice a day and it is called Calmoseptine. I gave you a prescription for this medication. It is a moisture barrier cream and it decreased the risk for skin breakdown on your bottom because tissues that is constantly moist breaks down and creates an ulcer much faster than if the tissue is protected from moisture. 7. It has been a pleasure meeting you Ed and I (and the rest of the staff) have appreciated your sense of humor and your motivation. I am glad you are able to go home. If you ever need us again in the future we will be glad to welcome you back. If you or Maura have any questions after you leave please do not hesitate to call me. Office: [phone] Rehab unit: [phone] Discharge Orders/Prescriptions Prescriptions: New clonazepam 0.5 mg Tablet 0.25 mg PO 1999 Qty: 16 RF: 0 lisinopril 10 mg Tablet 10 mg PO DAILY Qty: 30 RF: 0 ipratropium bromide 42 mcg (0.06 %) [place],Non-Aerosol 2 spray NASAL BID Qty: 2 RF: 0 menthol-zinc oxide [Calmoseptine] 0.44-20.6 % Ointment 1 applic topical BID@0600,2200 Qty: 1 RF: 6 Continued acetaminophen 500 MG tablet 1,000 mg PO Q6H PRN PRN (Reason: pain) RF: 0 famotidine 20 MG tablet 20 mg PO DAILY RF: 0 atorvastatin 80 MG tablet 80 mg PO QHS RF: 0 clopidogrel 75 MG tablet 75 mg PO DAILY RF: 0 amlodipine 5 MG tablet 5 mg PO DAILY RF: 0 aspirin 81 mg tablet,delayed release (DR/EC) 81 mg PO DAILY RF: 0 Discontinued lisinopril 20 MG tablet 20 mg PO DAILY RF: 0 Referrals / Follow Up: Kenny Martini MD [Primary Care Provider] - 03/02/22 11:20 am Disposition Disposition (needs filled in before D/C Order can be placed): Home Health Service Charges/Coding Visit Charges Inpatient E&M: 94545 Disch Hosp
== END 2022-02-22 13:50 | disposition home health service (06) | DRG 881 ==
PROVIDERS: Admitting Provider Internal Medicine; PCP Family Medicine; Visit Provider Internal Medicine
DX: F32.9 Major depressive disorder, single episode, unspecified (principal); E22.2 Syndrome of inappropriate secretion of antidiuretic hormone; I69.354 Hemiplegia and hemiparesis following cerebral infarction affecting left non-dominant side; L89.322 Pressure ulcer of left buttock, stage 2; J44.9 Chronic obstructive pulmonary disease, unspecified; W19.XXXD Unspecified fall, subsequent encounter; E78.5 Hyperlipidemia, unspecified; I10 Essential (primary) hypertension; F41.9 Anxiety disorder, unspecified; N40.1 Benign prostatic hyperplasia with lower urinary tract symptoms; I69.392 Facial weakness following cerebral infarction; S70.00XD Contusion of unspecified hip, subsequent encounter; N39.41 Urge incontinence; Z87.891 Personal history of nicotine dependence; R01.1 Cardiac murmur, unspecified; Z23 Encounter for immunization; Z79.899 Other long term (current) drug therapy; R35.1 Nocturia; R43.2 Parageusia
CPT/HCPCS: 0001A; 36415; 71045; 80048; 80053; 80076; 81002; 82306; 82533; 83735; 83930; 83935; 84100; 84300; 84443; 84484; 84550; 85014; 85018; 85025; 85027; 87086; 87088; 91300; 92610; 93005; 94762; 96365; 96372; 97110; 97116; 97161; 97162; 97165; 97166; 97530; 97535; 97802; 99218; 99251; 99285; J7050; A4216; G0378; G0463

== ENCOUNTER 2022-08-08 19:57 | Inpatient (IN) | payer MEDICARE, BC, SELFPAY ==
[2022-08-08 19:59] VITALS: BP 145/58; PULSE 81; RESP 15; TEMP 36.5; O2SAT 99; BMI 22.7
[2022-08-08 20:06] VITALS: O2SAT 99
--- NOTE | 2022-08-08 21:12 | EDS_ITS ---
HPI HPI - Fall History of Present Illness Chief Complaint: Fall Informant: patient and EMS Occured/Mechanism Occurred: Today Narrative: Fell off toilet after trying to get his sweatpants off of his feet Pain/Injury Pain Location: head and lower extremity (L hip) Quality of Pain: Aching Current Severity: Mild Maximum Severity: Moderate Worsened by: palpation Relieved by: resting Associated Symptoms Associated Symptoms: Positive for Weakness (chronic left side, unchanged) Narrative Narrative: Patient has a history of a left-sided stroke. He was at home on his toilet, he had a sweatpants down around his feet, he was trying to get one of his feet free and in doing this lost his balance because he was leaning forward, falling forward off of the toilet twisting and hitting the left side of his head on the wall, and his left hip on the floor. He has chronic pain in his left shoulder, elbow, wrist, he states that is unchanged and he did not injure those, but his left hip hurts. It hurts less now that he has been resting. Denies any other new pains or injuries. He is on aspirin and clopidogrel. He had no loss of consciousness, he denies a headache, nausea, vomiting, just has scalp pain on the left. 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) Home Medications acetaminophen 500 mg tablet 1,000 mg PO Q6H PRN PRN pain 12/09/19 [History Last Taken 02/07/22] famotidine 20 mg tablet 20 mg PO DAILY gerd 12/09/19 [History Last Taken 02/07/22] amlodipine 5 mg tablet 5 mg PO DAILY bp 02/09/22 [History Last Taken Unknown] aspirin 81 mg tablet,delayed release 81 mg PO DAILY heart 02/09/22 [History Last Taken Unknown] atorvastatin 80 mg tablet 80 mg PO QHS cholesterol 02/09/22 [History Last Taken Unknown] clopidogrel 75 mg tablet 75 mg PO DAILY blood thinner 02/09/22 [History Last Taken Unknown] clonazepam 0.5 mg tablet 0.25 mg PO 1999 #16 tabs 02/22/22 [Rx Last Taken Unknown] ipratropium bromide 42 mcg (0.06 %) nasal spray 2 spray NASAL BID #2 BOTTLES 02/22/22 [Rx Last Taken Unknown] lisinopril 10 mg tablet 10 mg PO DAILY #30 tabs 02/22/22 [Rx Last Taken Unknown] menthol 0.44 %-zinc oxide 20.6 % topical ointment (Calmoseptine) 1 applic topical BID@0600,2200 #1 tube 02/22/22 [Rx Last Taken Unknown] Allergy/AdvReac Type Severity Reaction Status Date / Time No Known Allergies Allergy Verified 12/03/13 11:24 Family History Other Cancer Surgical History History of appendectomy History of cholecystectomy Social History Smoking Status: Former smoker ROS ROS ED Constitutional Constitutional ED: Denies chills or fever(s) Eyes Eyes: Denies change in vision or diplopia ENT ENT ED: Denies ear pain, epistaxis, facial pain or rhinorrhea Cardiovascular Cardiovascular: Denies chest pain or palpitations Respiratory/Chest Respiratory/Chest: Denies cough or dyspnea Gastrointestinal Gastrointestinal: Denies abdominal pain, diarrhea, melena, nausea or vomiting Genitourinary Genitourinary ED: Denies dysuria or hematuria Musculoskeletal Musculoskeletal: Reports extremity pain; Denies back pain or neck pain Integumentary Denies abscess, Abrasions, laceration or rash Neurologic Neurologic: Reports paresthesias and weakness; Denies confusion or headache(s) EXAM Physical Exam Const Vital Signs: 08/08/22 19:59 08/08/22 20:06 Temperature 97.7 F L Temperature Source Temporal Pulse Rate 81 Respiratory Rate 15 Respiratory Effort Normal Non-Labored Respiratory Depth Normal Respiratory Pattern Normal Blood Pressure 145/58 H Blood Pressure Mean 87 Pulse Ox 99 99 Oxygen Delivery Method Room Air Room Air Positive well nourished and well developed General Appearance ED: well developed and NAD HEENT Reports nasal mucous membranes and turbinates normal HEENT Narrative: Tender left parietal scalp without any crepitance, evidence of trauma, hematoma, depression. atraumatic Face and Sinus: Negative for facial tenderness Eyes PERRL and EOMs intact bilaterally Visual Acuity: other Other Details: no entrapment or pain with extraocular movements Neck full ROM and supple General: Negative for tenderness Chest Wall inspection of chest normal and palpation of chest normal Chest: symmetrical chest wall rise; Negative for crepitus or tenderness Resp normal respiratory effort and clear to auscultation bilaterally Percussion: other equal BS bilat Cardio no murmurs Cardio Narrative: Occasionally irregular Rate: Negative for tachycardic GI normal to inspection, nondistended, normoactive bowel sounds, soft to palpation and non-tender Back/Spine normal ROM Cervical Spine: Negative for cervical spine tenderness Thoracic Spine / Upper Back: Negative for thoracic spinal tenderness Lumbar Spine / Lower Back: Negative for lumbar spinal tenderness Extremity normal to inspection Extremity Narrative: Nontender extremities, but pain in the left groin with passively ranging of the left hip. No deformities or shortening of the left lower extremity. Full range actively throughout the right arm and leg without any discomfort. General Extremety ED: Yes tenderness Neuro oriented x3, CN's II-XII intact bilaterally and moves all extremities Neuro Narrative: Weak left side, baseline per patient [place] Coma Scale: document GCS findings Spontaneous Obeys Commands Oriented 15 Sensorium / Orientation: awake and alert Psych mental status grossly normal and thought process normal Skin no wounds Lesions: no lesions Rashes: no rashes MDM MDM MDM Narrative Medical decision making narrative: CT of the head is negative for any acute injury, 3 view left hip x-ray series including the pelvis negative for any acute fractures or dislocation, radiology in agreement. I had staff help him up. He is able to stand, he is not able to walk. At baseline, he has a walker that he uses to get around and usually is able to without difficulty. Right now, he states he is not able to bear weight on his left leg enough to actually ambulate with the walker. He is not limited by pain to suggest an occult left hip fracture as the etiology of this. The patient wants to go home. The patient's wants him to stay, she states as nursing did, that he was not able to ambulate at all here, and she is not able to help him up the steps that he needs to go up in order to even get into the house. She states this is happened in the past when he has needed rehab. Radiography Diagnostic Testing: Clinical Impression(s) from Imaging Studies Brain CT 08/08/22 21:12 IMPRESSION: 1. No acute intracranial abnormality. 2. Encephalomalacia from a remote right MCA infarct. Electronically Signed: Maverick Garber MD at 21:57 EDT , Hip/Pelvis X-Ray 08/08/22 21:24 IMPRESSION: No evidence of displaced pelvic or hip fracture. Electronically Signed: Maverick Garber MD at 22:02 EDT , Discharge Plan Dx/Rx/DC Orders Clinical Impression: Unable to ambulate, Accidental fall from commode or toilet, Closed head injury without concussion, Physical debility, Contusion of hip, left Disposition Disposition: Acute Care Hospital [facility]
--- NOTE | 2022-08-08 21:12 | CT_ITS ---
EXAM: CT HEAD WITHOUT INTRAVENOUS CONTRAST CLINICAL INDICATION: trauma/fall TECHNIQUE: Multiple axial images were obtained of the head without intravenous contrast. This CT exam was performed using one or more of the following dose reduction techniques: automated exposure control, adjustment of the mA and/or kV according to patient size, and/or use of iterative reconstruction technique. This report was created using [employer] report generation technology. COMPARISON: 01/31/2014 FINDINGS: BRAIN AND EXTRA-AXIAL SPACES: There is encephalomalacia in the right frontal and temporal lobes from remote right MCA infarct. No intra- or extra-axial hemorrhage. No intracranial mass or mass effect. Posterior fossa structures are unremarkable. Ventricles are appropriate for age. No hydrocephalus. Basal cisterns are patent. BONES/JOINTS: Unremarkable. No discrete lytic or blastic abnormalities. SINUSES: Unremarkable as visualized. Clear. MASTOID AIR CELLS: Unremarkable. Clear. ORBITS: Visualized globes, extraocular muscles, optic nerves and retrobulbar fat appear unremarkable. CT/Brain/Head without Contrast IMPRESSION: 1. No acute intracranial abnormality. 2. Encephalomalacia from a remote right MCA infarct. Electronically Signed: Maverick Garber MD at 21:57 EDT ,
--- NOTE | 2022-08-08 21:24 | RAD_ITS ---
EXAM: XR LEFT HIP WITH PELVIS WHEN PERFORMED, 2 OR 3 VIEWS CLINICAL INDICATION: fall/injury TECHNIQUE: Two or three views of the left hip with pelvis when performed. This report was created using [employer] report generation technology. COMPARISON: None. FINDINGS: BONES/JOINTS: Unremarkable. No displaced fracture. No destructive or sclerotic lesions. Note that overlapping bowel shadows may however obscure fine detail. Sacroiliac joint is unremarkable. No widening of the pubic symphysis. The articular structures are unremarkable. SOFT TISSUES: Unremarkable. No soft tissue swelling or gas. RAD/HIP, UNI W/ Pelvis 2-3 Views IMPRESSION: No evidence of displaced pelvic or hip fracture. Electronically Signed: Maverick Garber MD at 22:02 EDT ,
[2022-08-09] VITALS (9 sets, daily range): BP systolic 90–155; BP diastolic 48–73; PULSE 72–98; RESP 15–18; TEMP 36.3–37.1; O2SAT 97–99; BMI 22.6
--- NOTE | 2022-08-09 00:12 | PCM.HP.STD ---
HPI - General General Date of Admission: 08/09/22 Date of Service: 08/09/22 Chief Complaint: fall HPI Narrative REX DAY, is a 76 M who presents after fall on the . Patient was on the toilet and pull down his pants specifically below his knees and was try to take them off and then while he was sitting on toilet and then fell landing on his left side, hitting his hip elbow and his head. Patient has a history of stroke leaving him with left-sided hemiparesis and he uses a walker. Patient had x-rays in the hip but was unable to ambulate in the hospital service was contacted for admission. Denies pain in his leg but his leg is described as feeling like spaghetti. 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) Home Medications acetaminophen 500 mg tablet 1,000 mg PO Q6H PRN PRN pain 12/09/19 [History Last Taken 02/07/22] famotidine 20 mg tablet 20 mg PO DAILY gerd 12/09/19 [History Last Taken 02/07/22] amlodipine 5 mg tablet 5 mg PO DAILY bp 02/09/22 [History Last Taken Unknown] aspirin 81 mg tablet,delayed release 81 mg PO DAILY heart 02/09/22 [History Last Taken Unknown] atorvastatin 80 mg tablet 80 mg PO QHS cholesterol 02/09/22 [History Last Taken Unknown] clopidogrel 75 mg tablet 75 mg PO DAILY blood thinner 02/09/22 [History Last Taken Unknown] clonazepam 0.5 mg tablet 0.25 mg PO 1999 #16 tabs 02/22/22 [Rx Last Taken Unknown] ipratropium bromide 42 mcg (0.06 %) nasal spray 2 spray NASAL BID #2 BOTTLES 02/22/22 [Rx Last Taken Unknown] lisinopril 10 mg tablet 10 mg PO DAILY #30 tabs 02/22/22 [Rx Last Taken Unknown] menthol 0.44 %-zinc oxide 20.6 % topical ointment (Calmoseptine) 1 applic topical BID@0600,2200 #1 tube 02/22/22 [Rx Last Taken Unknown] Allergy/AdvReac Type Severity Reaction Status Date / Time No Known Allergies Allergy Verified 12/03/13 11:24 Family History Other Cancer Surgical History History of appendectomy History of cholecystectomy Social History Smoking Status: Former smoker ROS ROS Narrative Left-sided hemiparesis. All review of systems were negative except as mentioned above in the history of present illness and the other review of systems. Vital Signs Vital Signs Vital Signs: 08/08/22 19:59 08/08/22 20:06 Temperature 36.5 C L Temperature Source Temporal Pulse Rate 81 Respiratory Rate 15 Respiratory Effort Normal Non-Labored Respiratory Depth Normal Respiratory Pattern Normal Blood Pressure 145/58 H Blood Pressure Mean 87 Pulse Ox 99 99 Oxygen Delivery Method Room Air Room Air Weight Weight: 74 kg Body Mass Index (BMI) 22.7 Physical Exam Const alert and no apparent distress HEENT normocephalic and head/scalp atraumatic Resp normal respiratory effort, no retractions, no use of accessory muscles and clear to auscultation bilaterally Cardio regular rate, regular rhythm, S1 normal heart sound and S2 normal heart sound GI normal to inspection, nondistended, normoactive bowel sounds, soft to palpation, non-tender and non-distended Extremity Extremity Narrative: Hematoma over the left hip and was tender to palpation. Muscle wasting throughout. Neuro Sensorium / Orientation: awake and alert Psych affect normal Results Lab / Micro Data Attestation: I reviewed the patient's lab results. Radiology Impression Brain CT 08/08/22 21:12 IMPRESSION: 1. No acute intracranial abnormality. 2. Encephalomalacia from a remote right MCA infarct. Electronically Signed: Maverick Garber MD at 21:57 EDT , Hip/Pelvis X-Ray 08/08/22 21:24 IMPRESSION: No evidence of displaced pelvic or hip fracture. Electronically Signed: Maverick Garber MD at 22:02 EDT , Assessment & Plan Assessment/Plan (1) Hip hematoma, left: PLAN: Secondary to fall. Complicated by his use of aspirin and clopidogrel. Monitor for now. Hold clopidogrel and aspirin for now. Likely resume those over the next 24 to 48 hours if the hematoma remained stable. (2) Debility: PLAN: Due to fall, left hip hematoma but also left side hemiparesis and marginal performance status given his prior stroke. PT OT evaluate and treat. Patient seems to expect that he be able to go home directly from the hospital. Try to manage his expectations in his diet suspect he is going to require some additional therapy such as what he had earlier this year. Earlier this year he did go to rehab. I did tell he and his that that may not happen this time around PLAN: Plan Chronic conditions CVA: With left-sided hemiparesis hold aspirin and clopidogrel for now Hypertension: Continue with amlodipine and lisinopril hyperlipidemia: Continue with atorvastatin VTE prophylaxis: Low risk given current observation status. Charges/Coding Visit Charges OBSV E&M: 77500 Initial observation care L2
[2022-08-09] MEDS: Menthol/Lanolin/Calamine/Znox 113 GM Tube 1 APPLIC TOPICAL ×2 (03:22→21:24)
[2022-08-09 05:35] LABS: Absolute Lymphocyte Count 1.53 X10^3/uL (0.83-4.51); Absolute Neutrophil Count 8.1 X10^3/uL (2.0-7.7); Basophil# 0.02 X10^3/uL; Basophil% 0.2 % (0-1); Eosinophil# 0.01 X10^3/uL; Eosinophils% 0.1 % (0-5); Hematocrit 38.8 % (40-54); Hemoglobin 12.8 g/dL (13.0-16.5); Lymphocyte # 1.53 X10^3/ul (0.83-4.51); Lymphocyte % 14.7 % (19-41); Mean Corpuscular Hgb 30.3 pg (27.0-32.0); Mean Corpuscular Volume 91.9 fL (80-94); Mean Platelet Vol. 9.3 fl (6.2-12.0); Monocyte% 6.7 % (0-10); NRBC Flagged by Analyzer 0 % (0-5); Neutrophil # 8.13 X10^3/uL (2.7-7.7); Neutrophil % 77.8 % (47-70); Platelet Count 215 K/mm3 (150-450); RBC Distribution Width CV 13.2 % (11.6-14.6); Red Blood Count 4.22 M/mm3 (4.6-6.2); White Blood Count 10.4 K/mm3 (4.4-11.0)
[2022-08-09 05:50] LABS: Anion Gap 7 (5-15); BUN 9 mg/dL (7-18); BUN/Creat Ratio 14.7 RATIO (10-20); Chloride 95 mmol/L (98-107); Creatinine, Serum 0.61 mg/dL (0.70-1.30); EST Glomerular Filtration Rate 135 mL/min (>60); Est Glom Filt Rate - Afr Amer 163 mL/min (>60); Estimated Creatinine Clearance 63.21 ml/min; Glucose 112 mg/dL (74-106); Potassium 4.2 mmol/L (3.5-5.1); Sodium Level 126 mmol/L (136-145)
[2022-08-09 08:49] LABS: Thyroid Stim Hormone (TSH) 0.98 uIU/mL (0.358-3.74); Uric Acid 3.6 mg/dL (3.5-7.2)
[2022-08-09 08:55] LABS: Osmolality, Serum 278 mOsm/KG (280-301)
[2022-08-09] MEDS: Ipratropium Bromide 0.06% NASAL SPRAY 2 SPRAY NASAL ×2 (10:01→21:23)
[2022-08-09] MEDS: Famotidine 20 MG Tablet PO (10:01)
[2022-08-09] MEDS: Lisinopril 10 MG Tablet PO (10:02)
[2022-08-09] MEDS: amLODIPine 5 MG Tablet PO (10:02)
[2022-08-09] MEDS: Acetaminophen 500 MG Tablet 1000 MG PO (10:13)
[2022-08-09 10:30] LABS: Urine Sodium 50 mmol/L (Not Establ.)
[2022-08-09 10:32] LABS: Osmolality, Urine 355 mOsm/KG
--- NOTE | 2022-08-09 10:44 | WOUNDNOTE ---
wound photo: buttocks
--- NOTE | 2022-08-09 10:47 | WOUNDNOTE ---
wound photo: buttocks
--- NOTE | 2022-08-09 13:50 | CASEMGMT ---
Discharge Hot Patcher This underwriter went to patient room and had a [id number] with patient and . This underwriter introduced self and role. This underwriter gave a?list of?care home facility providers including quality and resource use data and consistent with patient?s preferred geographic region, medical needs, and insurance network were provided from the [facility] Guide. and patient would like a first choice of [facility] as patient has been there before. This underwriter will send a referral to Lily at [facility]. CARLITA Ho has been notified. Adrianna DICKERSON Special Procedures Tech
--- NOTE | 2022-08-09 14:23 | PCM.HOSP.N ---
Hospitalist Note Patient admitted early this morning with falls. Has history of left-sided hemiparesis from remote stroke. Patient was unable to ambulate with the hospital service and reported that his leg felt like spaghetti. He reports all of the weakness is on his left side and denies any right-sided weakness. Patient did very poorly with therapy services and will need further therapy upon discharge. Skilled facility being identified for placement. Patient also found to be hyponatremic. Appears to have a history of this however worse today. Looks to be possibly SIADH. Going to fluid restrict for now and repeat lab in a.m. Patient is on no medications that would be obvious etiologies for hyponatremia.
--- NOTE | 2022-08-09 19:24 | NURSING ---
reviewed and agree with hosiery looper documentation
[2022-08-09] MEDS: clonazePAM 0.5 MG Tablet PO (19:48)
[2022-08-09] MEDS: Atorvastatin Calcium 80 MG Tablet PO (21:24)
[2022-08-10 03:07] VITALS: BP 126/57; PULSE 81; RESP 18; TEMP 36.4; O2SAT 95
[2022-08-10] MEDS: Menthol/Lanolin/Calamine/Znox 113 GM Tube 1 APPLIC TOPICAL (05:21)
[2022-08-10 06:17] LABS: Absolute Lymphocyte Count 1.78 X10^3/uL (0.83-4.51); Absolute Neutrophil Count 5.1 X10^3/uL (2.0-7.7); Basophil# 0.02 X10^3/uL; Basophil% 0.3 % (0-1); Eosinophil# 0.06 X10^3/uL; Eosinophils% 0.8 % (0-5); Hematocrit 37.5 % (40-54); Hemoglobin 12.9 g/dL (13.0-16.5); Lymphocyte # 1.78 X10^3/ul (0.83-4.51); Lymphocyte % 23.1 % (19-41); Mean Corp Hgb Conc 34.4 g/dL (32-36); Mean Corpuscular Hgb 31.1 pg (27.0-32.0); Mean Corpuscular Volume 90.4 fL (80-94); Mean Platelet Vol. 9.2 fl (6.2-12.0); Monocyte# 0.78 X10^3/uL; Monocyte% 10.1 % (0-10); NRBC Flagged by Analyzer 0 % (0-5); Neutrophil # 5.05 X10^3/uL (2.7-7.7); Neutrophil % 65.6 % (47-70); Platelet Count 208 K/mm3 (150-450); RBC Distribution Width CV 13.5 % (11.6-14.6); RBC Distribution Width SD 44.6 fl (35.1-43.9); Red Blood Count 4.15 M/mm3 (4.6-6.2); White Blood Count 7.7 K/mm3 (4.4-11.0)
[2022-08-10 06:33] LABS: Anion Gap 5 (5-15); BUN 9 mg/dL (7-18); BUN/Creat Ratio 13.7 RATIO (10-20); Calcium,Total 9.1 mg/dL (8.5-10.1); Chloride 98 mmol/L (98-107); Creatinine, Serum 0.66 mg/dL (0.70-1.30); EST Glomerular Filtration Rate 125 mL/min (>60); Est Glom Filt Rate - Afr Amer 151 mL/min (>60); Estimated Creatinine Clearance 63.21 ml/min; Glucose 97 mg/dL (74-106); Potassium 3.8 mmol/L (3.5-5.1); Sodium Level 130 mmol/L (136-145)
--- NOTE | 2022-08-10 07:39 | PN.HOSP_ITS ---
Objective Data Objective Data Vital Signs: Vital Signs Temp Pulse Resp BP Pulse Ox O2 Del Method 97.5 F L 81 18 126/57 H 95 Room Air 08/10/22 03:07 08/10/22 03:07 08/10/22 03:07 08/10/22 03:07 08/10/22 03:07 08/10/22 03:07 Oxygen Delivery Method Room Air Weight: 161 lb 13.109 oz Body Mass Index (BMI) 22.6 Intake & Output: Intake and Output for Last 24 Hours 08/08/22 08/09/22 08/10/22 23:59 23:59 23:59 Intake Total 60 / 60 Output Total 200 / 1000 1400 / 1400 Balance -140 / -940 -1400 / -1400 Medical Nutrition Assessment Dietitian: Malnutrition Criteria Met Start: 08/09/22 12:13 Freq: Status: Active Protocol: Document 08/09/22 12:13 AG (Rec: 08/09/22 12:13 AG [id number]) Nutrition Malnutrition Evidence of Malnutrition Exists Yes Malnutrition (moderate): Chronic Evidenced By Suboptimal Energy Intake ( Moderate),Physical Changes ( Mild) Clinical Problem Chronic Disease or Condition Related Malnutrition Etiology moderate, chronic malnutrition related to chronically decreased appetite Signs/Symptoms as evidenced by estimated PO intake meeting <75% of estimated energy needs > 3 months; mild muscle wasting/ fat loss evident per physical exam in orbital, clavicle, temporal, and acromion areas Status Active Problem Recommendation Dietitian Recommendations/Changes will adjust diet to regular- no added salt given malnutrition; will adjust Ensure Plus High Protein to 240mL w/ breakfast and lunch if pt does not order meal per pt request Lab / Micro Data Result Diagrams: 08/10/22 05:25 08/10/22 05:25 Labs: Laboratory Results - last 24 hr 08/09/22 04:41: Uric Acid 3.6, TSH 0.98 08/09/22 04:41: Serum Osmolality 278 L 08/09/22 10:15: Urine Osmolality 355 08/09/22 10:15: Ur Random Sodium 50 08/10/22 05:25: WBC 7.7, RBC 4.15 L, Hgb 12.9 L, Hct 37.5 L, MCV 90.4, MCH 31.1, MCHC 34.4, RDW Std Deviation 44.6 H, RDW Coeff of [place] 13.5, Plt Count 208, MPV 9.2, Immature Gran % (Auto) 0.100, Neut % (Auto) 65.6, Lymph % (Auto) 23.1, Jones % (Auto) 10.1 H, Eos % (Auto) 0.8, Baso % (Auto) 0.3, Absolute Neuts (auto) 5.1, Absolute Lymphs (auto) 1.78, Nucleated RBC % 0 08/10/22 05:25: Sodium 130 L, Potassium 3.8, Chloride 98, Carbon Dioxide 27.0, Anion Gap 5, BUN 9, Creatinine 0.66 L, Estim Creat Clear Calc 63.21, Est GFR (MDRD) Af Amer 151, Est GFR (MDRD) Non-Af 125, BUN/Creatinine Ratio 13.7, Glucose 97, Calcium 9.1 Assessment & Plan Assessment/Plan (1) Hip hematoma, left: (2) Debility: PLAN: Due to fall, left hip hematoma but also left side hemiparesis and marginal performance status given his prior stroke. PT OT evaluate and treat. Patient seems to expect that he be able to go home directly from the hospital. Try to manage his expectations in his diet suspect he is going to require some additional therapy such as what he had earlier this year. Earlier this year he did go to rehab. I did tell he and his that that may not happen this time around PLAN: Plan Chronic conditions * CVA: With left-sided hemiparesis hold aspirin and clopidogrel for now * Hypertension: Continue with amlodipine and lisinopril * hyperlipidemia: Continue with atorvastatin VTE prophylaxis: Low risk given current observation status.
--- NOTE | 2022-08-10 08:16 | CASEMGMT ---
Discharge Tobacco Sieve Operator Patient has been accepted at [facility]. Adrianna DICKERSON Tailer Out
[2022-08-10 08:31] VITALS: BP 134/53; PULSE 95; RESP 15; TEMP 36.9; O2SAT 98
[2022-08-10] MEDS: Lisinopril 10 MG Tablet PO (08:40)
[2022-08-10] MEDS: Famotidine 20 MG Tablet PO (08:40)
[2022-08-10] MEDS: amLODIPine 5 MG Tablet PO (08:40)
[2022-08-10] MEDS: Acetaminophen 500 MG Tablet 1000 MG PO (08:43)
[2022-08-10] MEDS: Ipratropium Bromide 0.06% NASAL SPRAY 2 SPRAY NASAL (08:44)
--- NOTE | 2022-08-10 09:56 | PCM.TXEXTCAR ---
Diet Diet Order/Speech Therapy: 08/09/22 14:26 Diet: Regular - General Type of Dietary Supplement:: Ensure Plus High Protein Is pt able to select menu?: Yes Fluid restriction:: 1500 mL Diet Comments: 240mL vanilla w/ breakfast and lunch if pt does not want meal Routine Orders/Code Status Suppository Type: Dulcolax 10mg Suppository Frequency: Daily PRN Wound(s) sacrel: Wound Type: Pressure Injury left buttock: Wound Type: small sheared area Therapies Weight Bearing: Weight bearing as tolerated Extremity Affected:: Bilateral Lower Physical Therapy: Eval and Treat Occupational Therapy: Eval and Treat Speech Therapy: Eval and Treat Problem/Diagnosis (1) Hip hematoma, left: Status: Acute Code(s): S70.02XA - Contusion of left hip, initial encounter Plan: Secondary to fall. Complicated by his use of aspirin and clopidogrel. Monitor for now. Hold clopidogrel and aspirin for now. Likely resume those over the next 24 to 48 hours if the hematoma remained stable. (2) Debility: Status: Acute Code(s): R53.81 - Other malaise Plan: Due to fall, left hip hematoma but also left side hemiparesis and marginal performance status given his prior stroke. PT OT evaluate and treat. Patient seems to expect that he be able to go home directly from the hospital. Try to manage his expectations in his diet suspect he is going to require some additional therapy such as what he had earlier this year. Earlier this year he did go to rehab. I did tell he and his that that may not happen this time around Plan Chronic conditions CVA: With left-sided hemiparesis hold aspirin and clopidogrel for now Hypertension: Continue with amlodipine and lisinopril hyperlipidemia: Continue with atorvastatin VTE prophylaxis: Low risk given current observation status. Allergies/Procedures Done in Hospital Allergies No Known Allergies Allergy (Verified 08/09/22 01:24) Type of Care/Length of Stay Estimated LOS: Convalescent Care Less Than 30 days Type of Care Needed: Skilled Rehab Potential: Good Prognosis: Good Additional Orders/Day of Discharge Day of Discharge: 08/10/22 Dietary and Speech Recommendations Dietitian Recommendations/Changes: will adjust diet to regular- no added salt given malnutrition; will adjust Ensure Plus High Protein to 240mL w/ breakfast and lunch if pt does not order meal per pt request Discharge Plan Admission Admit Date/Time: 08/09/22 15:27 Primary Reason for Your Visit: debility, left hip hematoma after fall Attending Provider: Jacob Velasquez Primary Care Provider: Kenny Martini Consulting Providers: Ponce Bradley ; Kaykay Roland Discharge Orders/Prescriptions Prescriptions: New lisinopril 10 mg Tablet 10 mg PO DAILY Qty: 0 0RF Rx Instructions: Hold for SBP less than 130 mmHg Continued acetaminophen 500 MG tablet 1,000 mg PO Q6H PRN PRN (Reason: pain) famotidine 20 MG tablet 20 mg PO DAILY atorvastatin 80 MG tablet 80 mg PO QHS Label Comments: cholesterol clonazepam 0.5 mg Tablet 0.25 mg PO 1999 Qty: 16 0RF ipratropium bromide 42 mcg (0.06 %) [place],Non-Aerosol 2 spray NASAL BID Qty: 2 0RF Rx Instructions: take for post nasal drip menthol-zinc oxide [Calmoseptine] 0.44-20.6 % Ointment 1 applic topical BID@0600,2200 Qty: 1 6RF Protocol: *Topical Application Instructions APPLICATION INSTRUCTIONS: buttocks Held clopidogrel 75 MG tablet 75 mg PO DAILY Hold Instructions: Hold for 5-day Label Comments: UNSURE IF STILL TAKING LAST FILL WAS 06/13/21 X90 DAY SUPPLY. Discontinued amlodipine 5 MG tablet 5 mg PO DAILY Label Comments: blood pressure lisinopril 10 mg tablet 20 mg PO DAILY Referrals / Follow Up: Kenny Martini MD [Primary Care Provider] - None Disposition Disposition (needs filled in before D/C Order can be placed): [facility]
[2022-08-10 10:05] VITALS: O2SAT 93
[2022-08-10 10:11] VITALS: O2SAT 93
--- NOTE | 2022-08-10 11:01 | DS.PCM_ITS ---
Providers Date of Admission: 08/09/22 Date of Discharge: 08/10/22 Primary Care Physician: Dr. Kenny Martini MD Consultations 08/09/22 01:51 Consult: Onc/Wound/crisis counselor Routine Comment: Reason for Consult:: open area to scral area. Pt said from a cyst Reason For Visit: DEBILITY Diagnosis Discharge Diagnosis (1) Hip hematoma, left: Status: Acute Code(s): S70.02XA - Contusion of left hip, initial encounter (2) Debility: Status: Acute Code(s): R53.81 - Other malaise Plan: Due to fall, left hip hematoma but also left side hemiparesis and marginal performance status given his prior stroke. PT OT evaluate and treat. Patient seems to expect that he be able to go home directly from the hospital. Try to manage his expectations in his diet suspect he is going to require some additional therapy such as what he had earlier this year. Earlier this year he did go to rehab. I did tell he and his that that may not happen this time around Plan Chronic conditions * CVA: With left-sided hemiparesis hold aspirin and clopidogrel for now * Hypertension: Continue with amlodipine and lisinopril * hyperlipidemia: Continue with atorvastatin VTE prophylaxis: Low risk given current observation status. Medications at Discharge Home Medications acetaminophen 500 mg tablet 1,000 mg PO Q6H PRN PRN pain 12/09/19 famotidine 20 mg tablet 20 mg PO DAILY gerd 12/09/19 atorvastatin 80 mg tablet 80 mg PO QHS cholesterol 02/09/22 clopidogrel 75 mg tablet 75 mg PO DAILY blood thinner 02/09/22 clonazepam 0.5 mg tablet 0.25 mg PO 2000 #16 tabs 02/22/22 ipratropium bromide 42 mcg (0.06 %) nasal spray 2 spray NASAL BID #2 BOTTLES 02/22/22 menthol 0.44 %-zinc oxide 20.6 % topical ointment (Calmoseptine) 1 applic topical BID@0600,2200 #1 tube 02/22/22 lisinopril 10 mg tablet 10 mg PO DAILY #0 tabs 08/10/22 Hospital Course Summary of Care Provided Hospital Course: This 76-year-old gentleman was admitted after a fall on 08/08. Patient fell on left side while sitting on the toilet seat, hitting his hip, elbow and head. Patient had x-rays of hip and pelvis which did not show evidence of displaced pelvic or hip fracture. Patient also had CT head which did not show acute intracranial abnormality but enkephalin Celeste from remote right MCA infarct. The patient was unable to ambulate therefore admitted. 1. Left hip hematoma debility secondary to fall with history of remote infarct with left-sided hemiparesis: Hold Plavix for 5 more days as there is chances of bleeding into hematoma heals and resolved. Patient was not on aspirin at time o f admission. 2. Chronic conditions include CVA with left-sided hemiparesis, hypertension and dyslipidemia: Patient blood pressure was low 90/58 on 08/09, 126/57. Amlodipine discontinued with risk of orthostatic hypotension, dizziness. Lisinopril continued. Lisinopril dose decreased from 20 mg to 10 mg daily. Monitor BP and increase if blood pressure increases as an outpatient. Discharge medication reconciliation done. Discharge follow-up instructions completed. Discharge process discussed with the patient and all questions were answered to patient's satisfaction. Total time spent, exact 35 minutes on discharge meds reconciliation, examination, coordination of care with nurses and ancillary staff, review of imaging and blood test and discussion with the patient on follow-up i nstructions. Clinical Impression(s) from Imaging Studies Brain CT 08/08/22 21:12 IMPRESSION: 1. No acute intracranial abnormality. 2. Encephalomalacia from a remote right MCA infarct. Electronically Signed: Maverick Garber MD at 21:57 EDT , Hip/Pelvis X-Ray 08/08/22 21:24 IMPRESSION: No evidence of displaced pelvic or hip fracture. Electronically Signed: Maverick Garber MD at 22:02 EDT , Physical Exam Narrative Seen and examined. Patient has history of left-sided hemiparesis after stroke in 2013. Left upper extremity is nonfunctional with contracture and weakness at shoulder elbow and wrist joints. Patient also cannot move left lower extremity. Patient was moving and the help of walker. Was admitted with worsening debility. General: Alert, Oriented x3, Cooperative HEENT: Atraumatic, PERRLA, EOMI, Normocephalic Oral: No Gingival or Mucosal Lesions/ Ulcerations Neck: Supple, No JVD, Negative Carotid Bruits Lungs: Air entry diminished in bilateral lung bases. No crepitation/rhonchi Cardiovascular: Regular rate, Regular Rhythm, Normal S1, Normal S2, Systolic murmur over LLSB Abdomen: Bowel Sounds Present, Soft, Non Tender, Non-Distended : No renal angle tenderness. No suprapubic tenderness. Extremities: No edema, Capillary Refill Less than 3 Seconds Skin: No rashes, No breakdown Musculoskeletal: No Tenderness to Palpation of Joints or Extremities. Neurological: Left-sided hemiparesis, muscle strength LUE 1/5, LLE 3/5 at major joints. Muscle atrophy of left hand forearm and shoulder muscles. Psych/Mental Status: Normal Affect, Appropriate. Medical Records Data Medical Nutrition Assessment Dietitian: Malnutrition Criteria Met Start: 08/09/22 12:13 Freq: Status: Active Protocol: Document 08/09/22 12:13 (Rec: 08/09/22 12:13 [id number]) Nutrition Malnutrition Evidence of Malnutrition Exists Yes Malnutrition (moderate): Chronic Evidenced By Suboptimal Energy Intake ( Moderate),Physical Changes ( Mild) Clinical Problem Chronic Disease or Condition Related Malnutrition Etiology moderate, chronic malnutrition related to chronically decreased appetite Signs/Symptoms as evidenced by estimated PO intake meeting <75% of estimated energy needs > 3 months; mild muscle wasting/ fat loss evident per physical exam in orbital, clavicle, temporal, and acromion areas Status Active Problem Recommendation Dietitian Recommendations/Changes will adjust diet to regular- no added salt given malnutrition; will adjust Ensure Plus High Protein to 240mL w/ breakfast and lunch if pt does not order meal per pt request Weight / BMI Weight Weight: 161 lb 13.109 oz Body Mass Index (BMI) 22.6 ABG / Lab / Microbiology Data Result Diagrams: 08/10/22 05:25 08/10/22 05:25 Laboratory: Laboratory Results - last 24 hr 08/10/22 05:25: WBC 7.7, RBC 4.15 L, Hgb 12.9 L, Hct 37.5 L, MCV 90.4, MCH 31.1, MCHC 34.4, RDW Std Deviation 44.6 H, RDW Coeff of Uche 13.5, Plt Count 208, MPV 9 .2, Immature Gran % (Auto) 0.100, Neut % (Auto) 65.6, Lymph % (Auto) 23.1, [place] % (Auto) 10.1 H, Eos % (Auto) 0.8, Baso % (Auto) 0.3, Absolute Neuts (auto) 5.1, Absolute Lymphs (auto) 1.78, Nucleated RBC % 0 08/10/22 05:25: Sodium 130 L, Potassium 3.8, Chloride 98, Carbon Dioxide 27.0, Anion Gap 5, BUN 9, Creatinine 0.66 L, Estim Creat Clear Calc 63.21, Est GFR (MDRD) Af Amer 151, Est GFR (MDRD) Non-Af 125, BUN/Creatinine Ratio 13.7, Glucose 97, Calcium 9.1 Meaningful Use Info Meaningful Use Diagnoses (Choose all that apply): None applicable Discharge Plan Admission Admit Date/Time: 08/09/22 15:27 Primary Reason for Your Visit: debility, left hip hematoma after fall Attending Provider: Jacob Velasquez Primary Care Provider: Kenny Martini Consulting Providers: Ponce Bradley ; Kaykay Roland Discharge Orders/Prescriptions Prescriptions: New lisinopril 10 mg Tablet 10 mg PO DAILY Qty: 0 0RF Rx Instructions: Hold for SBP less than 130 mmHg Continued acetaminophen 500 MG tablet 1,000 mg PO Q6H PRN PRN (Reason: pain) famotidine 20 MG tablet 20 mg PO DAILY atorvastatin 80 MG tablet 80 mg PO QHS Label Comments: cholesterol clonazepam 0.5 mg Tablet 0.25 mg PO 1999 Qty: 16 0RF ipratropium bromide 42 mcg (0.06 %) [place],Non-Aerosol 2 spray NASAL BID Qty: 2 0RF Rx Instructions: take for post nasal drip menthol-zinc oxide [Calmoseptine] 0.44-20.6 % Ointment 1 applic topical BID@0600,2200 Qty: 1 6RF Protocol: *Topical Application Instructions APPLICATION INSTRUCTIONS: buttocks Held clopidogrel 75 MG tablet 75 mg PO DAILY Hold Instructions: Hold for 5-day Label Comments: UNSURE IF STILL TAKING LAST FILL WAS 06/13/21 X90 DAY SUPPLY. Discontinued amlodipine 5 MG tablet 5 mg PO DAILY Label Comments: blood pressure lisinopril 10 mg tablet 20 mg PO DAILY Referrals / Follow Up: Kenny Martini MD [Primary Care Provider] - None Disposition Disposition (needs filled in before D/C Order can be placed): [facility] Charges/Coding Visit Charges Inpatient E&M: 89894 Disch Hosp
--- NOTE | 2022-08-10 12:51 | CASEMGMT ---
SW received d/c orders and COVID test for patient. SW arranged for patient to get picked up at 1330 via [employer] van by [facility]. SW notified [facility] via [employer]. SW notified RN and patient. SW also called patient's and left her a message letting know patient is going to [facility] today and the merchandise pickup/receiving associate time. SW sent orders, COVID, and merchandise pickup/receiving associate time to [facility] via [employer]. CARLITA completed 7000 on HENS. Plan: d/c to [facility] under skilled level of care on a 7000. [facility] transported via [employer] van. Georgia Herzog COMPUTATIONAL BIOLOGIST [employer]
--- NOTE | 2022-08-10 13:09 | CASEMGMT ---
Patient's is at [facility] now and said no one ever called her about patient's discharge. SW went to patient's room. Introduced self to patient's . SW let her know SW left a message. Patient's said she did not get it. SW apologized for the miscommunication. SW let her know he will be going to [facility] today at 130. She thanked SW. Plan: d/c to [facility] under skilled level of care on a 7000. [facility] transported via wheelchair. Georgia Herzog TALKBACK HOSTLalo BENITEZ
--- NOTE | 2022-08-10 14:13 | NURSING ---
Report called to [facility]
== END 2022-08-10 13:50 | disposition skilled nursing facility (03) | DRG 605 ==
LOC: ED 23:45 → PCU 08-09 00:34
PROVIDERS: Internal Medicine; Emergency Provider Emergency Medicine; PCP Family Medicine; Visit Provider Internal Medicine
DX: S70.02XA Contusion of left hip, initial encounter (principal); E87.1 Hypo-osmolality and hyponatremia; I69.354 Hemiplegia and hemiparesis following cerebral infarction affecting left non-dominant side; E78.5 Hyperlipidemia, unspecified; I10 Essential (primary) hypertension; W18.11XA Fall from or off toilet without subsequent striking against object, initial encounter; R53.81 Other malaise; Z87.891 Personal history of nicotine dependence; G89.29 Other chronic pain
CPT/HCPCS: 36415; 70450; 73502; 80048; 83930; 83935; 84300; 84443; 84550; 85025; 87426; 97110; 97116; 97162; 97167; 97530; 97535; 97802; 99285

== ENCOUNTER → 2023-01-25 | Outpatient (CLI) | payer MEDICARE, BC, SELFPAY ==
[2023-01-25 15:54] LABS: AST(SGOT) 40 U/L (15-37); Alanine Aminotransfer ALT/SGPT 33 U/L (16-61); Albumin, Serum 3.8 g/dL (3.2-5.0); Alkaline Phosphatase 105 U/L (45-117); Anion Gap 5 (5-15); BUN 7 mg/dL (7-18); BUN/Creat Ratio 10.8 RATIO (10-20); Calcium,Total 9.4 mg/dL (8.5-10.1); Chloride 92 mmol/L (98-107); Cholesterol 94 mg/dL (200); Creatinine, Serum 0.65 mg/dL (0.70-1.30); EST Glomerular Filtration Rate 127 mL/min (>60); Est Glom Filt Rate - Afr Amer 153 mL/min (>60); Glucose 102 mg/dL (74-106); High Density Lipoprotein 54 mg/dL; Protein, Total 7.8 g/dL (6.4-8.2); Sodium Level 127 mmol/L (136-145); Triglycerides 98 mg/dL; Very Low Density Lipoprotein 20 mg/dL (5-40)
== END | disposition home or self-care (01) ==
PROVIDERS: PCP Family Medicine; Visit Provider Family Medicine
DX: E78.5 Hyperlipidemia, unspecified (principal)
CPT/HCPCS: 36415; 80053; 80061

== ENCOUNTER 2023-06-27 12:30 | Inpatient (IN) | payer MEDICARE, BC, SELFPAY ==
[2023-06-27 12:31] VITALS: BP 157/50; PULSE 84; RESP 16; TEMP 36.5; O2SAT 99; BMI 22.7
--- NOTE | 2023-06-27 12:34 | CT_ITS ---
STUDY: CT BRAIN WITHOUT CONTRAST REASON FOR EXAM: Male, 77 years old. tia RADIATION DOSAGE (If Supplied By Facility): CTDIvol = ( 44.99 ) mGy, DLP = ( 779.24 ) mGycm TECHNIQUE: Transaxial CT imaging of the brain was performed without administration of intravenous contrast material. Individualized dose optimization techniques were used for this CT. COMPARISON: Comparison is made with prior study dated August 08, 2022. FINDINGS: Normal soft tissue structures. Normal calvarium. Stable large encephalomalacia in the right frontal temporal and parietal lobes with ipsilateral dilatation of the right ventricular horn. There are areas of decreased attenuation within the white matter tracts of the supratentorial brain, consistent with microvascular disease changes. Normal basal ganglia and thalami. Normal brainstem. Normal cerebellum. There is no intracranial hemorrhage. There are no findings of an acute ischemic infarction. Atherosclerotic plaque formation of the cavernous portions of the internal carotid arteries bilaterally. Mucosal thickening at the base of the right maxillary sinus. Mucosal thickening of the ethmoid sinus. CT/Brain/Head without Contrast IMPRESSION: Chronic involutional changes of the brain. Stable encephalomalacia involving the right temporal frontal parietal lobes. Electronically Signed: Jose Guadalupe Chopra MD at 14:22 EDT ,
--- NOTE | 2023-06-27 12:36 | EX.ED.DYSGE1 ---
HPI History of Present Illness Chief Complaint: Weakness Narrative Narrative: Presents with generalized weakness past 4 to 5 days. He has had progressive weakness for few weeks however starting for 5 days ago he could not even get out of bed. He normally gets around with a walker, he does have a history of a right hemispheric stroke with consequential left-sided weakness but up until 5 days ago he was able to use a walker to get to the restroom and do his ADLs. He has been in bed since then. No fevers or chills. No new neurological symptoms. No nausea or vomiting. No abdominal pain. He is denying any chest pain or dyspnea. No urinary symptoms. 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) Home Medications acetaminophen 500 mg tablet 1,000 mg PO Q6H PRN PRN pain 12/09/19 [History Last Taken 02/07/22] famotidine 20 mg tablet 20 mg PO DAILY gerd 12/09/19 [History Last Taken 02/07/22] atorvastatin 80 mg tablet 80 mg PO QHS cholesterol 02/09/22 [History Last Taken Unknown] clopidogrel 75 mg tablet 75 mg PO DAILY blood thinner 02/09/22 [History Last Taken Unknown] clonazepam 0.5 mg tablet 0.25 mg (1/2 x 0.5 mg) PO 1999 #16 tabs 02/22/22 [Rx Last Taken Unknown] ipratropium bromide 42 mcg (0.06 %) nasal spray 2 spray NASAL BID #2 BOTTLES 02/22/22 [Rx Last Taken Unknown] menthol 0.44 %-zinc oxide 20.6 % topical ointment (Calmoseptine) 1 applic topical BID@0600,2200 #1 tube 02/22/22 [Rx Last Taken Unknown] lisinopril 10 mg tablet 10 mg PO DAILY #0 tabs 08/10/22 [Rx Last Taken Unknown] Allergy/AdvReac Type Severity Reaction Status Date / Time No Known Allergies Allergy Verified 08/09/22 01:24 Family History Other Cancer Surgical History History of appendectomy History of cholecystectomy Social History Smoking Status: Former smoker ROS ROS ED ROS Narrative Past medical history: Reviewed, includes COPD, stroke and history of SIADH Medications: Reviewed Social history: Noncontributory Review of systems: All systems negative except as indicated General: No fever generalized weakness as in HPI Eyes: No visual changes ENT: No upper airway congestion, normal voice Neck: No neck pain Cardiovascular: No chest pain Respiratory: No shortness of breath or cough Gastrointestinal: No abdominal pain, nausea vomiting or diarrhea Genitourinary: No dysuria Musculoskeletal: Chronic left-sided weakness Skin: No rash Neurological: No memory loss, confusion or any new focal weakness EXAM Physical Exam Narrative Exam Narrative: Physical exam General: Patient appears relatively comfortable he does not appear in any pain Head: Normocephalic, Atraumatic Eyes: Conjunctiva not pale ENT: Dry mucous membranes Neck: Supple, Nontender, No lymphadenopathy Cardiovascular: Regular rate, Regular rhythm Respiratory: No distress, CTA bilaterally Abdomen: Soft, Nontender, Nondistended Back: Nontender, Normal Inspection. Negative for: CVA tenderness Extremities: Nontender, No edema Skin: Normal color, No rash Neurological: Significant weakness left arm and some weakness left leg. These are chronic. Const Vital Signs: 06/27/23 12:31 06/27/23 12:40 Temperature 97.7 F L Temperature Source Oral Pulse Rate 84 Respiratory Rate 16 Respiratory Pattern Normal Blood Pressure 157/50 H Blood Pressure Mean 85 Pulse Ox 99 Oxygen Delivery Method Room Air MDM MDM MDM Narrative Medical decision making narrative: She has an unremarkable work-up. He has hyponatremia but he has had hyponatremia in the past. This may have to be worked up again, he has a history of SIADH however clinically he appears dehydrated. Because of his weakness I will have to admit him since he cannot even ambulate and get around his house. Lab Data Labs: Laboratory Results - last 24 hr 06/27/23 06/27/23 12:46 13:34 WBC 8.2 RBC 4.14 L Hgb 12.3 L Hct 39.3 L MCV 94.9 H MCH 29.7 MCHC 31.3 L RDW Std Deviation 46.8 H RDW Coeff of [place]che 13.4 Plt Count 261 MPV 8.5 Immature Gran % (Auto) 0.400 Neut % (Auto) 64.6 Lymph % (Auto) 23.3 [place] % (Auto) 8.9 Eos % (Auto) 2.3 Baso % (Auto) 0.5 Absolute Neuts (auto) 5.3 Absolute Lymphs (auto) 1.91 Nucleated RBC % 0 Sodium 126 L Potassium 4.2 Chloride 93 L Carbon Dioxide 28.0 Anion Gap 5 BUN 15 Creatinine 0.74 Estim Creat Clear Calc 62.69 Est GFR (MDRD) Af Amer 130 Est GFR (MDRD) Non-Af 107 BUN/Creatinine Ratio 20.1 H Glucose 99 Calcium 9.2 Total Bilirubin 1.10 H AST 27 ALT 25 Alkaline Phosphatase 103 Troponin I High Sens 16 Total Protein 7.8 Albumin 3.3 Globulin 4.5 H Albumin/Globulin Ratio 0.7 L Urine Color Yellow Urine Clarity Clear Urine pH 7.0 Ur Specific Keller 1.005 Urine Protein Negative Urine Glucose (UA) Normal Urine Ketones Negative Urine Occult Blood Negative Urine Nitrite Negative Urine Bilirubin Negative Urine Urobilinogen Normal Ur Leukocyte Esterase Negative Radiography Diagnostic Testing: Clinical Impression(s) from Imaging Studies Chest X-Ray 06/27/23 13:13 IMPRESSION: Mild increased markings at the left lung base suggestive of atelectasis. Electronically Signed: Jose Guadalupe Chopra MD at 13:34 EDT , Discharge Plan Triage Chief Complaint: Weakness ED Provider: Kenny Alejandra Dx/Rx/DC Orders Clinical Impression: Generalized weakness, Physical debility, Acute hyponatremia Prescriptions: No Action acetaminophen 500 MG tablet 1,000 mg PO Q6H PRN PRN (Reason: pain) famotidine 20 MG tablet 20 mg PO DAILY atorvastatin 80 MG tablet 80 mg PO QHS Patient Comments: cholesterol clopidogrel 75 MG tablet 75 mg PO DAILY Hold Instructions: Hold for 5-day Patient Comments: UNSURE IF STILL TAKING LAST FILL WAS 06/13/21 X90 DAY SUPPLY. clonazepam 0.5 mg Tablet 0.25 mg PO 2000 Qty: 16 0RF ipratropium bromide 42 mcg (0.06 %) [place],Non-Aerosol 2 spray NASAL BID Qty: 2 0RF Rx Instructions: take for post nasal drip menthol-zinc oxide [Calmoseptine] 0.44-20.6 % Ointment 1 applic topical BID@0600,2200 Qty: 1 6RF Protocol: *Topical Application Instructions APPLICATION INSTRUCTIONS: buttocks lisinopril 10 mg Tablet 10 mg PO DAILY Qty: 0 0RF Rx Instructions: Hold for SBP less than 130 mmHg Primary Care Provider: Kenny Martini Referrals: Kenny Martini MD [Primary Care Provider] -
[2023-06-27 13:03] LABS: Absolute Lymphocyte Count 1.91 X10^3/uL (0.83-4.51); Absolute Neutrophil Count 5.3 X10^3/uL (2.0-7.7); Basophil# 0.04 X10^3/uL; Basophil% 0.5 % (0-1); Eosinophil# 0.19 X10^3/uL; Eosinophils% 2.3 % (0-5); Hematocrit 39.3 % (40-54); Hemoglobin 12.3 g/dL (13.0-16.5); Lymphocyte # 1.91 X10^3/ul (0.83-4.51); Lymphocyte % 23.3 % (19-41); Mean Corp Hgb Conc 31.3 g/dL (32-36); Mean Corpuscular Hgb 29.7 pg (27.0-32.0); Mean Corpuscular Volume 94.9 fL (80-94); Mean Platelet Vol. 8.5 fl (6.2-12.0); Monocyte# 0.73 X10^3/uL; Monocyte% 8.9 % (0-10); NRBC Flagged by Analyzer 0 % (0-5); Neutrophil # 5.29 X10^3/uL (2.7-7.7); Neutrophil % 64.6 % (47-70); Platelet Count 261 K/mm3 (150-450); RBC Distribution Width CV 13.4 % (11.6-14.6); RBC Distribution Width SD 46.8 fl (35.1-43.9); Red Blood Count 4.14 M/mm3 (4.6-6.2); White Blood Count 8.2 K/mm3 (4.4-11.0)
--- NOTE | 2023-06-27 13:13 | RAD_ITS ---
STUDY: X-RAY CHEST REASON FOR EXAM: Male, 77 years old. Weakness TECHNIQUE: Single AP portable view of the chest. COMPARISON: Comparison is made with prior study February 08, 2022. FINDINGS: EKG electrodes are seen. Minimal increased markings at the left lung base suggests some mild left basilar atelectasis. There is no demonstrated pleural abnormality. Normal size heart. Normal mediastinum and opal. Normal visualized pulmonary arteries. There is atherosclerotic calcification of the aortic arch with tortuosity. There are degenerative changes of the visualized thoracic spine. Normal visualized ribs, clavicles, and shoulders. Findings suggestive of hiatal hernia. RAD/Chest 1 View (Portable) IMPRESSION: Mild increased markings at the left lung base suggestive of atelectasis. Electronically Signed: Jose Guadalupe Chopra MD at 13:34 EDT ,
--- NOTE | 2023-06-27 13:21 | CT_ITS ---
STUDY: CT ABDOMEN AND PELVIS WITHOUT CONTRAST REASON FOR EXAM: Male, 77 years old. Abdominal pain. 3 day history of worsening weakness. RADIATION DOSAGE (If Supplied By Facility): CTDIvol = ( 18.77 ) mGy, DLP = ( 1074.18 ) mGycm TECHNIQUE: Transaxial images were obtained from the dome of the diaphragm to the symphysis pubis without oral contrast, and without intravenous contrast. Sagittal and coronal images were reconstructed. Individualized dose optimization techniques were used for this CT. COMPARISON: None. FINDINGS: The visualized lung bases are unremarkable. Coronary artery calcification. Normal liver. There are surgical clips in the gallbladder fossa consistent with a prior cholecystectomy. Normal spleen. Normal pancreas. There is a 4.8 cm x 5 cm x 5.5 cm predominantly cystic nodule in the left adrenal gland. There is a 6.1 cm x 6.8 cm x 10.6 cm heterogeneous mass arising from the lateral aspect of the right kidney. There is evidence of a bilateral perinephric stranding. 2 adjacent nodular densities seen in the retroperitoneal fat posterior to the right kidney. The larger one measures 8 mm. This may represent metastatic nodules. Mild degree of left hydronephrosis. Normal visualized stomach. Normal small intestine. Normal colon. The patient is status post appendectomy. There is diffuse atherosclerotic calcification of the abdominal aorta and its major visceral branches, without a demonstrated aneurysm. Normal inferior vena cava. Normal retroperitoneum. Mild degree of bladder wall thickening. Heterogeneous enlargement of the prostate. This measures 5.1 cm x 6.8 cm. This causes indentation at the bladder base. Normal abdominal wall. There are diffuse degenerative changes of the visualized lumbar spine. There is a 4.6 cm x 3.4 Toby by 4.4 cm destructive mass involving the supra-acetabular region of the left hip joint. A metastatic deposit should be ruled out. CT/Abdomen/Pelvis without Cont IMPRESSION: Large mass in the right kidney. Neoplastic process should be ruled out. Destructive bony lesion in the left iliac bone in the supra acetabular region. A metastatic deposit should be ruled out. Large cystic mass in the left adrenal gland. Heterogeneous enlargement of the prostate with bladder wall thickening. Electronically Signed: Jose Guadalupe Chopra MD at 14:20 EDT ,
[2023-06-27 13:24] LABS: ALB/GLOB Ratio 0.7 RATIO (0.9-2.4); AST(SGOT) 27 U/L (15-37); Alanine Aminotransfer ALT/SGPT 25 U/L (16-61); Albumin, Serum 3.3 g/dL (3.2-5.0); Alkaline Phosphatase 103 U/L (45-117); Anion Gap 5 (5-15); BUN 15 mg/dL (7-18); BUN/Creat Ratio 20.1 RATIO (10-20); Calcium,Total 9.2 mg/dL (8.5-10.1); Chloride 93 mmol/L (98-107); Creatinine, Serum 0.74 mg/dL (0.70-1.30); EST Glomerular Filtration Rate 107 mL/min (>60); Est Glom Filt Rate - Afr Amer 130 mL/min (>60); Estimated Creatinine Clearance 62.69 ml/min; Globulin 4.5 g/dL (2.2-4.2); Glucose 99 mg/dL (74-106); Potassium 4.2 mmol/L (3.5-5.1); Protein, Total 7.8 g/dL (6.4-8.2); Sodium Level 126 mmol/L (136-145); Troponin-I HS 16 pg/mL (3.0-78.0)
[2023-06-27] MEDS: 0.9% Normal Saline (1000mL) 1,000 ML 1000 ML IV (13:30)
[2023-06-27 13:43] LABS: Bacteria 0 SEEN /hpf (None Seen); Mucous, Urine 0 SEEN /hpf (<or=2+); Red Blood Cells-Urine 0 SEEN /hpf (0-5); Squamous Epithelial Cells - UA 0 SEEN /hpf (0-5); White Blood Cells 0 SEEN /hpf (0-5)
[2023-06-27 13:45] LABS: Color, Urine Yellow (Yellow); Glucose, Dipstick Normal (Normal); Ketone-Dipstick Negative (Negative); Leukocyte Esterase-Dipstick Negative /ul (Negative); Nitrite-Dipstick Negative (Negative); Occult Blood-Urine Negative /ul (Negative); Protein-Dipstick Negative (Negative); Specific Gravity, Urine 1.005 (1.002-1.030); Urine Bilirubin Dipstick Negative (Negative); Urine Clarity Clear (Clear); Urine Urobilinogen Normal (Normal)
[2023-06-27 14:21] VITALS: BP 128/43; PULSE 71; RESP 16; TEMP 36.6; O2SAT 98
[2023-06-27 15:14] VITALS: BP 157/48; PULSE 78; RESP 18; O2SAT 98
--- NOTE | 2023-06-27 15:28 | PCM.HP.STD ---
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 Has had increased weakness for 3 weeks and has been bedbound since Saturday, since this has not been improving they called his physician and they advised coming to the ED. He has not been eating well but this has been over the past 10 years or so and has lost weight over that time, feels limbs on right side work fairly well in bed but has not been able to ambulate, at his baseline he has left-sided weakness but was able to ambulate with walker using his right side primarily. Denied any other physical complaints or numbness or weakness or tingling. 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) Home Medications famotidine 20 mg tablet 20 mg PO DAILY GERD 12/09/19 [History Last Taken 06/26/23] atorvastatin 80 mg tablet 80 mg PO QHS CHOLESTEROL 02/09/22 [History Last Taken 06/26/23] clopidogrel 75 mg tablet 75 mg PO DAILY BLOOD THINNER 02/09/22 [History Last Taken 06/27/23] amlodipine 5 mg tablet 5 mg PO DAILY BLOOD PRESSURE 06/27/23 [History Last Taken 06/27/23] artificial tears with lanolin eye ointment 1 applic EACH EYE DAILY 06/27/23 [History Last Taken 06/27/23] lisinopril 20 mg tablet 20 mg PO DAILY BLOOD PRESSURE 06/27/23 [History Last Taken 06/27/23] wvjvrgnfpsdn-akacknbi-kighmy tablet (Multivitamin 50 Plus tablet) 1 tab PO DAILY 06/27/23 [History Last Taken 06/27/23] Allergy/AdvReac Type Severity Reaction Status Date / Time No Known Allergies Allergy Verified 08/09/22 01:24 Family History Other Cancer Surgical History History of appendectomy History of cholecystectomy Social History Smoking Status: Former smoker ROS ROS Narrative General: Denies fever/chills HENT: Denies headache, denies stuffy nose, denies sore throat EYES: Denies changes in vision Resp: Denies cough, denies shortness of breath Cardiac: Denies chest pain GI: Denies abdominal pain, denies changes in bowel, denies nausea/vomiting : Denies changes in urination Extremity: Denies swelling MSK: Generalized weakness, on top of chronic left-sided weakness and deficits Neuro: Denies any numbness/tingling Heme: Denies any bleeding or bruising Skin: Denies rashes Psychiatric: No complaints voiced Vital Signs Vital Signs Vital Signs: 06/27/23 12:31 06/27/23 12:40 06/27/23 14:21 Temperature 97.7 F L 97.9 F Temperature Source Oral Tympanic Pulse Rate 84 71 Respiratory Rate 16 16 Respiratory Pattern Normal Blood Pressure 157/50 H 128/43 H Blood Pressure Mean 85 71 Pulse Ox 99 98 Oxygen Delivery Method Room Air 06/27/23 15:14 Temperature Temperature Source Pulse Rate 78 Respiratory Rate 18 Respiratory Pattern Blood Pressure 157/48 H Blood Pressure Mean 84 Pulse Ox 98 Oxygen Delivery Method Room Air Weight Weight: 74 kg Body Mass Index (BMI) 22.7 Physical Exam Narrative General: Alert, oriented, no apparent distress HEENT: Atraumatic, normocephalic Eyes: Anicteric, normal conjunctiva, extraocular movements grossly intact Neck: Supple Respiratory: Clear to auscultation bilaterally, normal respiratory effort Cardiovascular: Regular rate and rhythm GI: Soft, nontender, nondistended Extremities: No edema Musculoskeletal: Cannot move left upper extremity, can flex the left lower extremity at the hip, right upper and lower extremity strength 5 out of 5 Neuro: No overt focal neurological deficits aside from chronic left-sided deficits Skin: No rashes appreciated Psych: Cooperative Results Lab / Micro Data 06/27/23 12:46 06/27/23 12:46 Labs: Laboratory Results - last 24 hr 06/27/23 12:46: WBC 8.2, RBC 4.14 L, Hgb 12.3 L, Hct 39.3 L, MCV 94.9 H, MCH 29.7, MCHC 31.3 L, RDW Std Deviation 46.8 H, RDW Coeff of [place] 13.4, Plt Count 261, MPV 8.5, Immature Gran % (Auto) 0.400, Neut % (Auto) 64.6, Lymph % (Auto) 23.3, [place] % (Auto) 8.9, Eos % (Auto) 2.3, Baso % (Auto) 0.5, Absolute Neuts (auto) 5.3, Absolute Lymphs (auto) 1.91, Nucleated RBC % 0, Sodium 126 L, Potassium 4.2, Chloride 93 L, Carbon Dioxide 28.0, Anion Gap 5, BUN 15, Creatinine 0.74, Estim Creat Clear Calc 62.69, Est GFR (MDRD) Af Amer 130, Est GFR (MDRD) Non-Af 107, BUN/Creatinine Ratio 20.1 H, Glucose 99, Calcium 9.2, Total Bilirubin 1.10 H, AST 27, ALT 25, Alkaline Phosphatase 103, Troponin I High Sens 16, Total Protein 7.8, Albumin 3.3, Globulin 4.5 H, Albumin/Globulin Ratio 0.7 L 06/27/23 13:34: Urine Color Yellow, Urine Clarity Clear, Urine pH 7.0, Ur Specific [place] 1.005, Urine Protein Negative, Urine Glucose (UA) Normal, Urine Ketones Negative, Urine Occult Blood Negative, Urine Nitrite Negative, Urine Bilirubin Negative, Urine Urobilinogen Normal, Ur Leukocyte Esterase Negative, Urine RBC 0 SEEN, Urine WBC 0 SEEN, Ur Squamous Epith Cells 0 SEEN, Urine Bacteria 0 SEEN, Urine Mucus 0 SEEN Radiology Impression Brain CT 06/27/23 12:34 IMPRESSION: Chronic involutional changes of the brain. Stable encephalomalacia involving the right temporal frontal parietal lobes. Electronically Signed: Jose Guadalupe Chopra MD at 14:22 EDT , Chest X-Ray 06/27/23 13:13 IMPRESSION: Mild increased markings at the left lung base suggestive of atelectasis. Electronically Signed: Jose Guadalupe Chopra MD at 13:34 EDT , Abdomen/Pelvis CT 06/27/23 13:21 IMPRESSION: Large mass in the right kidney. Neoplastic process should be ruled out. Destructive bony lesion in the left iliac bone in the supra acetabular region. A metastatic deposit should be ruled out. Large cystic mass in the left adrenal gland. Heterogeneous enlargement of the prostate with bladder wall thickening. Electronically Signed: Jose Guadalupe Chopra MD at 14:20 EDT , Assessment & Plan Assessment/Plan (1) Generalized weakness: (2) Hyponatremia: PLAN: Plan #Generalized weakness -Worsened over 2 weeks and particularly worse since Saturday -CT head with chronic changes and stable encephalomalacia of right temporal frontal parietal lobes -Strength good in right upper and lower extremities while supine -CT of abdomen obtained due to concerns for possible constipation and showed a large mass in kidney and destructive bone lesion left iliac bone and cannot rule out neoplastic process, if patient has no underlying malignancy this could contribute -Also further assess sodium, sodium 126 but was 127 in January so do not suspect acute drop -UA unremarkable -We will decrease atorvastatin to 40 as the high dose of his age could contribute -pt/ot/CM c/s #Hyponatremia -Chronic, do not suspect that this was acute drop causing weakness however will obtain urine studies and trend BMP to verify it has stabilized #Abnormal CT scan -CT in ED w/ Large mass in the right kidney. Destructive bony lesion in the left iliac bone in the supra acetabular region. Large cystic mass in the left adrenal gland. Heterogeneous enlargement of the prostate with bladder wall thickening -We will need to discuss goals of care with patient as he is already DNR/DNI still need to assess how aggressive he would like to be #History of right hemispheric stroke -Continue Plavix and atorvastatin #Hypertension -Continue home medications #DVT ppx: Kuldip Bergman MD Time spent in the patient's overall evaluation,decision-making process, review of diagnostic data, adjustment of management, discussion with other providers, nursing nursing and ancillary staff involved in patient's care documentation, 76 minutes Charges/Coding Visit Charges Inpatient E&M: 50346 Init Hosp L3
--- NOTE | 2023-06-27 16:12 | ED.RN ---
Patient changed on incontinent urine. New linens applied and warm blankets given.
[2023-06-27 17:05] VITALS: RESP 18; BMI 21.1
[2023-06-27 17:26] VITALS: BP 131/45; PULSE 70; RESP 18; TEMP 37.1; O2SAT 98
--- NOTE | 2023-06-27 19:28 | PCM.HOSP.N ---
Hospitalist Note Discussed CT scan findings with patient, he reports in this moment he does not want further imaging or work-up and will think about this and is open to rediscussing tomorrow
[2023-06-27 19:54] LABS: Osmolality, Serum 274 mOsm/KG (280-301)
[2023-06-27 22:41] LABS: Creatinine, Urine (random) < 13.00 mg/dL (NO RANGE EST.); Urea Nitrogen, Urine 182 mg/dL (NO RANGE EST.); Urine Chloride 36 mmol/L (Not Establ.); Urine Sodium 51 mmol/L (Not Establ.)
[2023-06-27 22:49] VITALS: BP 141/53; PULSE 71; RESP 15; TEMP 36.7; O2SAT 98
[2023-06-27 22:54] LABS: Osmolality, Urine 191 mOsm/KG
[2023-06-27] MEDS: Atorvastatin Calcium 40 MG Tablet PO (22:55)
[2023-06-28 06:03] VITALS: BP 132/48; PULSE 69; RESP 18; TEMP 36.8; O2SAT 95
[2023-06-28] MEDS: 0.9% Saline Lock 10 ML Syringe IV ×2 (06:06→22:17)
[2023-06-28] MEDS: Menthol/Lanolin/Calamine/Znox 113 GM Tube 1 APPLIC TOPICAL ×3 (06:06→22:14)
[2023-06-28 07:29] LABS: Absolute Lymphocyte Count 1.82 X10^3/uL (0.83-4.51); Absolute Neutrophil Count 4.3 X10^3/uL (2.0-7.7); Basophil# 0.03 X10^3/uL; Basophil% 0.4 % (0-1); Eosinophil# 0.18 X10^3/uL; Eosinophils% 2.6 % (0-5); Hematocrit 36.7 % (40-54); Hemoglobin 11.9 g/dL (13.0-16.5); Lymphocyte # 1.82 X10^3/ul (0.83-4.51); Lymphocyte % 25.8 % (19-41); Mean Corp Hgb Conc 32.4 g/dL (32-36); Mean Corpuscular Hgb 30.2 pg (27.0-32.0); Mean Corpuscular Volume 93.1 fL (80-94); Mean Platelet Vol. 8.5 fl (6.2-12.0); Monocyte# 0.69 X10^3/uL; Monocyte% 9.8 % (0-10); NRBC Flagged by Analyzer 0 % (0-5); Neutrophil # 4.31 X10^3/uL (2.7-7.7); Neutrophil % 61.1 % (47-70); Platelet Count 232 K/mm3 (150-450); RBC Distribution Width CV 13.4 % (11.6-14.6); RBC Distribution Width SD 46.1 fl (35.1-43.9); Red Blood Count 3.94 M/mm3 (4.6-6.2); White Blood Count 7.1 K/mm3 (4.4-11.0)
--- NOTE | 2023-06-28 07:50 | PCM.PN.HOSP ---
Reason for Visit Reason for Visit: Diagnoses Hypo-osmolality and hyponatremia (06/27/23) Weakness (06/27/23) Subjective Subjective Feeling weak. Objective Data Objective Data Vital Signs: Vital Signs Temp Pulse Resp BP Pulse Ox O2 Del Method 36.8 C 69 18 132/48 H 95 Room Air 06/28/23 06:03 06/28/23 06:03 06/28/23 06:03 06/28/23 06:03 06/28/23 06:03 06/28/23 06:03 Oxygen Delivery Method Room Air Weight: 68.691 kg Body Mass Index (BMI) 21.1 Intake & Output: Intake and Output for Last 24 Hours 06/26/23 06/27/23 06/28/23 23:59 23:59 23:59 Intake Total 1700 / 1700 200 / 200 Output Total 1100 / 1100 950 / 950 Balance 600 / 600 -750 / -750 Lab / Micro Data 06/28/23 07:05 06/28/23 07:05 Labs: Laboratory Results - last 24 hr 06/27/23 12:46: WBC 8.2, RBC 4.14 L, Hgb 12.3 L, Hct 39.3 L, MCV 94.9 H, MCH 29.7, MCHC 31.3 L, RDW Std Deviation 46.8 H, RDW Coeff of [place]che 13.4, Plt Count 261, MPV 8.5, Immature Gran % (Auto) 0.400, Neut % (Auto) 64.6, Lymph % (Auto) 23.3, [place] % (Auto) 8.9, Eos % (Auto) 2.3, Baso % (Auto) 0.5, Absolute Neuts (auto) 5.3, Absolute Lymphs (auto) 1.91, Nucleated RBC % 0, Sodium 126 L, Potassium 4.2, Chloride 93 L, Carbon Dioxide 28.0, Anion Gap 5, BUN 15, Creatinine 0.74, Estim Creat Clear Calc 62.69, Est GFR (MDRD) Af Amer 130, Est GFR (MDRD) Non-Af 107, BUN/Creatinine Ratio 20.1 H, Glucose 99, Calcium 9.2, Total Bilirubin 1.10 H, AST 27, ALT 25, Alkaline Phosphatase 103, Troponin I High Sens 16, Total Protein 7.8, Albumin 3.3, Globulin 4.5 H, Albumin/Globulin Ratio 0.7 L 06/27/23 13:34: Urine Color Yellow, Urine Clarity Clear, Urine pH 7.0, Ur Specific [place] 1.005, Urine Protein Negative, Urine Glucose (UA) Normal, Urine Ketones Negative, Urine Occult Blood Negative, Urine Nitrite Negative, Urine Bilirubin Negative, Urine Urobilinogen Normal, Ur Leukocyte Esterase Negative, Urine RBC 0 SEEN, Urine WBC 0 SEEN, Ur Squamous Epith Cells 0 SEEN, Urine Bacteria 0 SEEN, Urine Mucus 0 SEEN 06/27/23 18:30: Serum Osmolality 274 L, Vitamin D 25-Hydroxy 51.0 06/27/23 22:10: Urine Osmolality 191, Ur Random Sodium 51, Urine Creatinine < 13.00, Urine Potassium 16.0, Urine Chloride 36, Urine Urea Nitrogen 182 06/28/23 07:05: WBC 7.1, RBC 3.94 L, Hgb 11.9 L, Hct 36.7 L, MCV 93.1, MCH 30.2, MCHC 32.4, RDW Std Deviation 46.1 H, RDW Coeff of [place] 13.4, Plt Count 232, MPV 8.5, Immature Gran % (Auto) 0.300, Neut % (Auto) 61.1, Lymph % (Auto) 25.8, [place] % (Auto) 9.8, Eos % (Auto) 2.6, Baso % (Auto) 0.4, Absolute Neuts (auto) 4.3, Absolute Lymphs (auto) 1.82, Nucleated RBC % 0 Radiography Diagnostic Testing: Radiology Impression Brain CT 06/27/23 12:34 IMPRESSION: Chronic involutional changes of the brain. Stable encephalomalacia involving the right temporal frontal parietal lobes. Electronically Signed: Jose Guadalupe Chopra MD at 14:22 EDT , Chest X-Ray 06/27/23 13:13 IMPRESSION: Mild increased markings at the left lung base suggestive of atelectasis. Electronically Signed: Jose Guadalupe Chopra MD at 13:34 EDT , Abdomen/Pelvis CT 06/27/23 13:21 IMPRESSION: Large mass in the right kidney. Neoplastic process should be ruled out. Destructive bony lesion in the left iliac bone in the supra acetabular region. A metastatic deposit should be ruled out. Large cystic mass in the left adrenal gland. Heterogeneous enlargement of the prostate with bladder wall thickening. Electronically Signed: Jose Guadalupe Chopra MD at 14:20 EDT , Physical Exam Const alert and no apparent distress HEENT head/scalp atraumatic and moist oral mucous membranes Resp normal respiratory effort, no retractions, no use of accessory muscles and clear to auscultation bilaterally Cardio regular rate, regular rhythm, S1 normal heart sound and S2 normal heart sound GI normal to inspection, nondistended, normoactive bowel sounds, soft to palpation, non-tender and non-distended Extremity normal to inspection Neuro Sensorium / Orientation: awake and alert Assessment & Plan Assessment/Plan (1) Generalized weakness: PLAN: Worsened over 2 weeks and particularly worse since Saturday Etiology unclear. Pt has been admitted for falls in the past, so I suspect he has a poor baseline performance status. May be exacerbated by undiagnosed malignancy. PT OT Data: head CT showed chronic involutions changes. Stable encephalomalacia of right temporal, frontal and parietal lobes TSH pending (2) Hyponatremia: PLAN: Improved. Unclear significance Monitor (3) Right kidney mass: PLAN: CT A/P: Large mass in the right kidney. Neoplastic process should be ruled out. Destructive bony lesion in the left iliac bone in the supra acetabular region. A metastatic deposit should be ruled out. Large cystic mass in the left adrenal gland.Heterogeneous enlargement of the prostate with bladder wall thickening. (No recent abdominal CTs for comparison). Suspected RCC. At states that he wants to get stronger before he even considers doing anything about getting a biopsy. Explained the patient the longer relates worse the cancer can get. He understands but still wishes to wait. PLAN: Plan Chronic conditions: History of right hemispheric stroke-atorvastatin. Will need to hold clopidogrel when he has the biopsy. Hypertension-Continue lisniopril DVT ppx: Lovenox Charges/Coding Visit Charges Inpatient E&M: 07693 Subs Hosp L2
[2023-06-28 08:17] LABS: Anion Gap 4 (5-15); BUN 14 mg/dL (7-18); BUN/Creat Ratio 22.1 RATIO (10-20); Calcium,Total 9.2 mg/dL (8.5-10.1); Chloride 101 mmol/L (98-107); Creatinine, Serum 0.63 mg/dL (0.70-1.30); EST Glomerular Filtration Rate 129 mL/min (>60); Est Glom Filt Rate - Afr Amer 157 mL/min (>60); Glucose 96 mg/dL (74-106); Magnesium 2.2 mg/dL (1.6-2.6); Potassium 4.4 mmol/L (3.5-5.1); Sodium Level 132 mmol/L (136-145); Thyroid Stim Hormone (TSH) 1.14 uIU/mL (0.358-3.74)
[2023-06-28] MEDS: Acetaminophen 325 MG Tablet 650 MG PO (08:52)
[2023-06-28] MEDS: Famotidine 20 MG Tablet PO (08:53)
[2023-06-28] MEDS: Lisinopril 20 MG Tablet PO (08:53)
[2023-06-28] MEDS: amLODIPine 5 MG Tablet PO (08:53)
[2023-06-28] MEDS: Ensure Plus High Protein 120 ML LIQUID PO ×4 (08:55→22:20)
[2023-06-28 09:00] VITALS: BP 116/65; PULSE 89; RESP 18; TEMP 36.8; O2SAT 95
--- NOTE | 2023-06-28 11:35 | CASEMGMT ---
RN CM slubber hand CM Face to Face with patient for initial transition planning/care coordination assessment. RN CM introduced self and role at [facility]. Patient?sitting up in chair at bedside, alert and oriented. Patient willing to participate in assessment and is able to answer all questions appropriately.? Care providers, pharmacy, and demographics verified. Patient wishes to discharge home, but voices understanding that he may need to first discharge to a SNF. Patient states he does not want to go to [place] and his first choice would be TCU. SW updated on this information.? Patient states he has no further needs or concerns at this time. CM to follow for discharge planning needs that may arise. PCP:Vini Specialists:?None Preferred Pharmacy: [facility] Insurance: Medicare Part A & B Prescription Benefit:?Yes Living Will/HPOA:Yes/Yes - Patient states his , Maura, is his HCPOA LNOK: Maura Living Arrangements: Patient lives with his in a 1 story home with FFSU and 3 stairs w/railing to enter. States he uses a stair chair to get to the basement of ever needed (reports this is rare). Patient reports prior to this admission, he was doing his own dressing and toileting. His would bathe him about once a week. does all IADLs. Patient states he has a daughter in [place] and a son in [place], [place]. Transportation: DME:?[employer], raised toilet seat, lift chair (patient states he sleeps in this), grab bars in bathroom, walker, stair chair, and medical alert system (reports it is through [facility]). 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 HHC: Previous SNF stay at [place] and previous HHC through [facility]. Disposition Plan:Anticipate discharge to SNF. SW informed. Hannah DE LUNA, RN, CM
--- NOTE | 2023-06-28 12:01 | CASEMGMT ---
Discharge Planning A list of SNF providers including quality and resource use data and consistent with the patient?s preferred geographic region, medical needs, and insurance network was created in [employer]. This list was provided to the SW. Jesica Cooney Discharge Planning Asst.
[2023-06-28 14:35] VITALS: BP 135/47; PULSE 80; RESP 18; TEMP 36.7; O2SAT 98
--- NOTE | 2023-06-28 20:53 | CASEMGMT ---
Social Work Met with patient in room and introduced to social work role and reason for visit. Provided patient a list of SNF options related to patient's insurance, geographical region, medicare star and quality data ratings. Patient reports remembering talking with Hannah WHITE CM today about possible need for SNF. Patient reports would want to go to [facility], and would need time to consider other options if [facility] is not available. Patient reports has been to [facility] twice before and does not want to return there. Message to Tashia in admissions at TCU regarding referral. PLAN[facility] -AMANDA Tesfaye
[2023-06-28 22:11] VITALS: BP 141/54; PULSE 68; RESP 18; TEMP 36.7; O2SAT 96
[2023-06-28] MEDS: Atorvastatin Calcium 40 MG Tablet PO (22:14)
[2023-06-29 05:26] VITALS: BP 137/56; PULSE 74; RESP 18; TEMP 36.4; O2SAT 96
[2023-06-29] MEDS: Ensure Plus High Protein 120 ML LIQUID PO ×4 (05:38→22:30)
--- NOTE | 2023-06-29 07:40 | PCM.PN.HOSP ---
Reason for Visit Reason for Visit: Diagnoses Hypo-osmolality and hyponatremia (06/27/23) Other specified disorders of kidney and ureter (06/27/23) Weakness (06/27/23) Subjective Subjective No events overnight. Does not want any enoxaparin. Want to be put back on his clopidogrel. Objective Data Objective Data Vital Signs: Vital Signs Temp Pulse Resp BP Pulse Ox O2 Del Method 36.4 C L 74 18 137/56 H 96 Room Air 06/29/23 05:26 06/29/23 05:26 06/29/23 05:26 06/29/23 05:26 06/29/23 05:26 06/29/23 05:26 Oxygen Delivery Method Room Air Weight: 68.691 kg Body Mass Index (BMI) 21.1 Intake & Output: Intake and Output for Last 24 Hours 06/27/23 06/28/23 06/29/23 23:59 23:59 23:59 Intake Total 1700 / 1700 1570 / 1570 200 / 200 Output Total 1100 / 1100 2350 / 2350 400 / 400 Balance 600 / 600 -780 / -780 -200 / -200 Lab / Micro Data 06/28/23 07:05 06/29/23 07:20 Labs: Laboratory Results - last 24 hr 06/28/23 07:05: Sodium 132 L, Potassium 4.4, Chloride 101, Carbon Dioxide 27.0, Anion Gap 4 L, BUN 14, Creatinine 0.63 L, Estim Creat Clear Calc 58.20, Est GFR (MDRD) Af Amer 157, Est GFR (MDRD) Non-Af 129, BUN/Creatinine Ratio 22.1 H, Glucose 96, Calcium 9.2, Magnesium 2.2, TSH 1.14 Physical Exam Const alert and no apparent distress Resp normal respiratory effort, no retractions, no use of accessory muscles and clear to auscultation bilaterally Cardio regular rate, regular rhythm, S1 normal heart sound and S2 normal heart sound GI normal to inspection, nondistended, normoactive bowel sounds, soft to palpation and non-tender Assessment & Plan Assessment/Plan (1) Generalized weakness: PLAN: Worsened over 2 weeks and particularly worse since Saturday Etiology unclear. Pt has been admitted for falls in the past, so I suspect he has a poor baseline performance status. May be exacerbated by undiagnosed malignancy. PT OT Data: head CT showed chronic involutions changes. Stable encephalomalacia of right temporal, frontal and parietal lobes TSH within normal limits (2) Hyponatremia: PLAN: Improved. Unclear significance Monitor (3) Right kidney mass: PLAN: CT A/P: Large mass in the right kidney. Neoplastic process should be ruled out. Destructive bony lesion in the left iliac bone in the supra acetabular region. A metastatic deposit should be ruled out. Large cystic mass in the left adrenal gland.Heterogeneous enlargement of the prostate with bladder wall thickening. (No recent abdominal CTs for comparison). Suspected RCC. At states that he wants to get stronger before he even considers doing anything about getting a biopsy. Explained the patient the longer relates worse the cancer can get. He understands but still wishes to wait. PLAN: Plan Chronic conditions: History of right hemispheric stroke-atorvastatin. Will need to hold clopidogrel when he has the biopsy. Hypertension-Continue lisniopril DVT ppx: Patient declining Lovenox. Explained to the patient the indication for that. He wishes to continue to decline that and insisting that the clopidogrel will be enough. Explained to him that is not how that works but he does not want any enoxaparin. Disposition: to [facility] pending approval and insurance authorization. Charges/Coding Visit Charges Inpatient E&M: 40788 Subs Hosp L2
[2023-06-29 08:11] LABS: Anion Gap 5 (5-15); BUN 18 mg/dL (7-18); BUN/Creat Ratio 25.3 RATIO (10-20); Chloride 100 mmol/L (98-107); Creatinine, Serum 0.71 mg/dL (0.70-1.30); EST Glomerular Filtration Rate 113 mL/min (>60); Est Glom Filt Rate - Afr Amer 137 mL/min (>60); Glucose 106 mg/dL (74-106); Potassium 4.4 mmol/L (3.5-5.1); Sodium Level 131 mmol/L (136-145)
[2023-06-29] MEDS: amLODIPine 5 MG Tablet PO (08:33)
[2023-06-29] MEDS: Famotidine 20 MG Tablet PO (08:33)
[2023-06-29] MEDS: Menthol/Lanolin/Calamine/Znox 113 GM Tube 1 APPLIC TOPICAL ×2 (08:33→22:23)
[2023-06-29] MEDS: Clopidogrel Bisulfate 75 MG Tablet PO (08:33)
[2023-06-29] MEDS: Lisinopril 20 MG Tablet PO (08:33)
[2023-06-29 10:05] VITALS: BP 125/42; PULSE 64; RESP 16; TEMP 36.5; O2SAT 98
[2023-06-29 11:38] VITALS: BP 121/56; PULSE 69; RESP 16; TEMP 36.8; O2SAT 97
[2023-06-29 16:30] VITALS: BP 132/48; PULSE 70; RESP 16; TEMP 36.8; O2SAT 99
[2023-06-29] MEDS: Atorvastatin Calcium 40 MG Tablet PO (22:23)
[2023-06-29 22:36] VITALS: BP 124/45; PULSE 66; RESP 16; TEMP 36.8; O2SAT 94
[2023-06-30 05:45] VITALS: BP 136/51; PULSE 67; RESP 18; TEMP 36.8; O2SAT 96
--- NOTE | 2023-06-30 07:33 | PN.HOSP_ITS ---
Reason for Visit Reason for Visit: Diagnoses Hypo-osmolality and hyponatremia (06/27/23) Other specified disorders of kidney and ureter (06/27/23) Weakness (06/27/23) Subjective Subjective Denies complaints. No new issues. Objective Data Objective Data Vital Signs: Vital Signs Temp Pulse Resp BP Pulse Ox O2 Del Method 36.8 C 67 18 136/51 H 96 Room Air 06/30/23 05:45 06/30/23 05:45 06/30/23 05:45 06/30/23 05:45 06/30/23 05:45 06/30/23 05:45 Oxygen Delivery Method Room Air Weight: 68.691 kg Body Mass Index (BMI) 21.1 Intake & Output: Intake and Output for Last 24 Hours 06/28/23 06/29/23 06/30/23 23:59 23:59 23:59 Intake Total 1570 / 1570 700 / 700 Output Total 2350 / 2350 1050 / 1650 1200 / 1200 Balance -780 / -780 -350 / -950 -1200 / -1200 Lab / Micro Data 06/28/23 07:05 06/29/23 07:20 Labs: Laboratory Results - last 24 hr 06/29/23 07:20: Sodium 131 L, Potassium 4.4, Chloride 100, Carbon Dioxide 26.0, Anion Gap 5, BUN 18, Creatinine 0.71, Estim Creat Clear Calc 58.20, Est GFR (MDRD) Af Amer 137, Est GFR (MDRD) Non-Af 113, BUN/Creatinine Ratio 25.3 H, Glucose 106, Calcium 9.0 Physical Exam Const alert and no apparent distress HEENT head/scalp atraumatic Neuro Sensorium / Orientation: awake and alert Psych affect normal Assessment & Plan Assessment/Plan (1) Generalized weakness: PLAN: Worsened over 2 weeks and particularly worse since Saturday Etiology unclear. Pt has been admitted for falls in the past, so I suspect he has a poor baseline performance status. May be exacerbated by undiagnosed malignancy. PT OT Likely progressive debility Data: * head CT showed chronic involutions changes. Stable encephalomalacia of right temporal, frontal and parietal lobes * TSH within normal limits (2) Hyponatremia: PLAN: Improved. Unclear significance Monitor (3) Right kidney mass: PLAN: CT A/P: * Large mass in the right kidney. Neoplastic process should be ruled out. Destructive bony lesion in the left iliac bone in the supra acetabular region. A metastatic deposit should be ruled out. Large cystic mass in the left adrenal gland.Heterogeneous enlargement of the prostate with bladder wall thickening. (No recent abdominal CTs for comparison). Suspected RCC. Patient states that he wants to get stronger before he even considers doing anything about getting a biopsy. Explained the patient the longer relates worse the cancer can get. He understands but still wishes to wait. PLAN: Plan Chronic conditions: * History of right hemispheric stroke-atorvastatin. Will need to hold clopidogrel when he has the biopsy. * Hypertension-Continue lisniopril DVT ppx: Patient declining Lovenox. Explained to the patient the indication for that. He wishes to continue to decline that and insisting that the clopidogrel will be enough. Explained to him that is not how that works but he does not want any enoxaparin. Disposition: to SNF pending approval and insurance authorization. Charges/Coding Visit Charges Inpatient E&M: 83162 Subs Hosp L1
[2023-06-30] MEDS: Famotidine 20 MG Tablet PO (07:48)
[2023-06-30] MEDS: Clopidogrel Bisulfate 75 MG Tablet PO (07:48)
[2023-06-30] MEDS: amLODIPine 5 MG Tablet PO (07:48)
[2023-06-30] MEDS: Lisinopril 20 MG Tablet PO (07:48)
[2023-06-30] MEDS: Menthol/Lanolin/Calamine/Znox 113 GM Tube 1 APPLIC TOPICAL ×2 (07:52→21:17)
[2023-06-30] MEDS: Ensure Plus High Protein 120 ML LIQUID PO ×4 (07:52→21:16)
[2023-06-30 08:43] VITALS: BP 150/59; PULSE 69; RESP 16; TEMP 36.3; O2SAT 99
[2023-06-30] MEDS: Acetaminophen 325 MG Tablet 650 MG PO (11:32)
[2023-06-30 11:38] VITALS: BP 130/52; PULSE 72; RESP 16; TEMP 36.7; O2SAT 99
[2023-06-30 15:33] VITALS: BP 113/52; PULSE 61; RESP 16; TEMP 36.8; O2SAT 99
[2023-06-30 21:13] VITALS: BP 116/39; PULSE 62; RESP 18; TEMP 36.8; O2SAT 100
[2023-06-30] MEDS: Atorvastatin Calcium 40 MG Tablet PO (21:18)
[2023-07-01 05:27] VITALS: BP 142/59; PULSE 73; RESP 16; TEMP 36.6; O2SAT 99
--- NOTE | 2023-07-01 08:57 | PN.HOSP_ITS ---
Reason for Visit Reason for Visit: Diagnoses Hypo-osmolality and hyponatremia (06/27/23) Other specified disorders of kidney and ureter (06/27/23) Weakness (06/27/23) Subjective Subjective Patient is a 77-year-old gentleman admitted with progressive generalized weakness. Work-up so far in the hospital did reveal a large mass in the right kidney patient offered biopsy which is currently declining Objective Data Objective Data Vital Signs: Vital Signs Temp Pulse Resp BP Pulse Ox O2 Del Method 97.8 F 73 16 142/59 H 99 Room Air 07/01/23 05:27 07/01/23 05:27 07/01/23 05:27 07/01/23 05:27 07/01/23 05:27 07/01/23 05:27 Oxygen Delivery Method Room Air Weight: 68.691 kg Body Mass Index (BMI) 21.1 Intake & Output: Intake and Output for Last 24 Hours 06/29/23 06/30/23 07/01/23 23:59 23:59 23:59 Intake Total 700 / 700 500 / 1100 1000 / 1000 Output Total 1050 / 1650 2050 / 2550 1225 / 1225 Balance -350 / -950 -1550 / -1450 -225 / -225 Lab / Micro Data 06/28/23 07:05 06/29/23 07:20 Physical Exam Narrative GENERAL: cooperative HEENT: Atraumatic; normocephalic EYES; Anicteric, Normal Conjunctiva NECK; supple, normal thyroid, RESPIRATORY: Diminished to auscultation CARDIOVASCULAR: Regular S1 S2, GI: soft, normoactive bowel sounds, : No Renal angle tenderness; EXTREMITIES: No edema, no clubbing, MUSCULOSKELETAL: no muscle wasting NEURO: Awake; no lateralizing signs. SKIN: No Rash PSYCH; Flat affect Assessment & Plan Assessment/Plan (1) Physical debility: (2) Right kidney mass: PLAN: Plan Patient is a 77-year-old gentleman admitted with progressive generalized weakness. Work-up so far in the hospital did reveal a large mass in the right kidney patient offered biopsy which is currently declining 1. Physical deconditioning - Requested for PT OT eval and social media analyst to assist with discharge planning 2. Hyponatremia ? To be chronic managed with fluid restriction with subsequent serial BMPs ordered 3. Abnormal CT scan -CT in ED w/ Large mass in the right kidney. Destructive bony lesion in the left iliac bone in the supra acetabular region. Large cystic mass in the left adrenal gland. Heterogeneous enlargement of the prostate with bladder wall thickening. Patient was offered treatment options including biopsy to confirm diagnosis he declined at this point 4. History of right hemispheric stroke -Continue Plavix and atorvastatin 5. Hypertension - Blood pressure controlled, home medications continued with dose adjustment as needed 6. Dyslipidemia -Patient is on statin therapy, continued at home dose 7. GERD ? Patient is on famotidine 8. DVT prophylaxis ? SC Lovenox Time spent in the patient's overall evaluation,decision-making process, review of diagnostic data, adjustment of management, discussion with other providers, nursing nursing and ancillary staff involved in patient's care documentation, 35 Minutes Charges/Coding Visit Charges Inpatient E&M: 73136 Subs Hosp L2
[2023-07-01 09:57] LABS: Absolute Lymphocyte Count 1.42 X10^3/uL (0.83-4.51); Absolute Neutrophil Count 7.2 X10^3/uL (2.0-7.7); Basophil# 0.04 X10^3/uL; Basophil% 0.4 % (0-1); Eosinophil# 0.09 X10^3/uL; Eosinophils% 0.9 % (0-5); Hematocrit 40.8 % (40-54); Hemoglobin 13.1 g/dL (13.0-16.5); Lymphocyte # 1.42 X10^3/ul (0.83-4.51); Lymphocyte % 14.9 % (19-41); Mean Corp Hgb Conc 32.1 g/dL (32-36); Mean Corpuscular Volume 93.4 fL (80-94); Mean Platelet Vol. 8.8 fl (6.2-12.0); Monocyte% 8.4 % (0-10); NRBC Flagged by Analyzer 0 % (0-5); Neutrophil # 7.18 X10^3/uL (2.7-7.7); Neutrophil % 75.1 % (47-70); Platelet Count 256 K/mm3 (150-450); RBC Distribution Width CV 13.3 % (11.6-14.6); RBC Distribution Width SD 45.7 fl (35.1-43.9); Red Blood Count 4.37 M/mm3 (4.6-6.2); White Blood Count 9.6 K/mm3 (4.4-11.0)
[2023-07-01 10:13] VITALS: BP 138/47; PULSE 77; RESP 18; TEMP 36.6; O2SAT 98
[2023-07-01] MEDS: Menthol/Lanolin/Calamine/Znox 113 GM Tube 1 APPLIC TOPICAL ×2 (10:20→21:03)
[2023-07-01] MEDS: Clopidogrel Bisulfate 75 MG Tablet PO (10:21)
[2023-07-01] MEDS: Lisinopril 20 MG Tablet PO (10:21)
[2023-07-01] MEDS: Ensure Plus High Protein 120 ML LIQUID PO ×4 (10:21→21:03)
[2023-07-01] MEDS: Famotidine 20 MG Tablet PO (10:21)
[2023-07-01] MEDS: amLODIPine 5 MG Tablet PO (10:21)
[2023-07-01 10:25] LABS: Anion Gap 7 (5-15); BUN 18 mg/dL (7-18); BUN/Creat Ratio 28.3 RATIO (10-20); Calcium,Total 9.2 mg/dL (8.5-10.1); Chloride 99 mmol/L (98-107); Creatinine, Serum 0.64 mg/dL (0.70-1.30); EST Glomerular Filtration Rate 129 mL/min (>60); Est Glom Filt Rate - Afr Amer 156 mL/min (>60); Glucose 118 mg/dL (74-106); Magnesium 2.4 mg/dL (1.6-2.6); Potassium 4.1 mmol/L (3.5-5.1); Sodium Level 131 mmol/L (136-145)
--- NOTE | 2023-07-01 10:55 | CASEMGMT ---
Social Work SW let pt know that LW/POA are not on file. SW asked him to see if his can bring in the documents so we can put a copy on file here. Pt states will ask his . REID Lau
--- NOTE | 2023-07-01 14:07 | CASEMGMT ---
Social Work TCU referral denied due to no bed availability. Pt's requested to speak with SW. SW introduced self and role to patient and . SW explained TCU no bed availability. Pt's reports I insist he stays at the hospital. SW agreed to speak with Rehab to see availability and if patient is a candidate. SW spoke with Rehab admissions and no beds are available in rehabd
--- NOTE | 2023-07-01 14:12 | CASEMGMT ---
Social Work TCU referral denied due to no bed availability. Pt's requested to speak with SW. SW introduced self and role to patient and . SW explained TCU bed availability. Pt's reports I insist he stays at the hospital. Pt's is adamant that they had a poor experience with [facility] and she does not wish to go to any other nursing facility. SW agreed to speak with Rehab to see availability and if patient is a candidate. SW spoke with Rehab Unit admissions and no beds are available in rehab and patient would not be a good candidate for rehab. Yolanda Berrios SECTION CUTTER, BAND SPLITTER
[2023-07-01 14:26] VITALS: BP 146/57; PULSE 84; RESP 18; TEMP 37.1; O2SAT 99
--- NOTE | 2023-07-01 14:33 | CASEMGMT ---
Discharge Planning SNF referral sent to [facility] via [facility]. Jesica Cooney, Discharge Planning Asst.
--- NOTE | 2023-07-01 16:44 | CASEMGMT ---
Discharge Planning Patient and his have decided that he does not want placement at [facility] and would like a referral made to [facility]. Referral sent to [facility] via [facility]. [facility] updated. Jesica Cooney, Discharge Planning Asst.
[2023-07-01 20:55] VITALS: BP 130/55; PULSE 76; RESP 16; TEMP 36.6; O2SAT 97
[2023-07-01] MEDS: Atorvastatin Calcium 40 MG Tablet PO (21:03)
[2023-07-02 04:00] VITALS: BP 139/53; PULSE 75; RESP 16; TEMP 36.4; O2SAT 98
--- NOTE | 2023-07-02 07:19 | PCM.PN.HOSP ---
Reason for Visit Reason for Visit: Diagnoses Hypo-osmolality and hyponatremia (06/27/23) Other specified disorders of kidney and ureter (06/27/23) Weakness (06/27/23) Other malaise (06/27/23) Subjective Subjective Patient seen had a relatively uneventful night [facility] Objective Data Objective Data Vital Signs: Vital Signs Temp Pulse Resp BP Pulse Ox O2 Del Method 97.5 F L 75 16 139/53 H 98 Room Air 07/02/23 04:00 07/02/23 04:00 07/02/23 04:00 07/02/23 04:00 07/02/23 04:00 07/02/23 04:00 Oxygen Delivery Method Room Air Weight: 68.691 kg Body Mass Index (BMI) 21.1 Intake & Output: Intake and Output for Last 24 Hours 06/30/23 07/01/23 07/02/23 23:59 23:59 23:59 Intake Total 500 / 1100 1240 / 1240 Output Total 2050 / 2550 1775 / 2225 850 / 850 Balance -1550 / -1450 -535 / -985 -850 / -850 Lab / Micro Data 07/01/23 09:44 07/01/23 09:44 Labs: Laboratory Results - last 24 hr 07/01/23 09:44: WBC 9.6, RBC 4.37 L, Hgb 13.1, Hct 40.8, MCV 93.4, MCH 30.0, MCHC 32.1, RDW Std Deviation 45.7 H, RDW Coeff of [place] 13.3, Plt Count 256, MPV 8.8, Immature Gran % (Auto) 0.300, Neut % (Auto) 75.1 H, Lymph % (Auto) 14.9 L, [place] % (Auto) 8.4, Eos % (Auto) 0.9, Baso % (Auto) 0.4, Absolute Neuts (auto) 7.2, Absolute Lymphs (auto) 1.42, Nucleated RBC % 0, Sodium 131 L, Potassium 4.1, Chloride 99, Carbon Dioxide 25.0, Anion Gap 7, BUN 18, Creatinine 0.64 L, Estim Creat Clear Calc 58.20, Est GFR (MDRD) Af Amer 156, Est GFR (MDRD) Non-Af 129, BUN/Creatinine Ratio 28.3 H, Glucose 118 H, Calcium 9.2, Magnesium 2.4 Physical Exam Narrative GENERAL: cooperative HEENT: Atraumatic; normocephalic EYES; Anicteric, Normal Conjunctiva NECK; supple, normal thyroid, RESPIRATORY: Diminished to auscultation CARDIOVASCULAR: Regular S1 S2, GI: soft, normoactive bowel sounds, : No Renal angle tenderness; EXTREMITIES: No edema, no clubbing, MUSCULOSKELETAL: no muscle wasting NEURO: Awake; no lateralizing signs. SKIN: No Rash PSYCH; Flat affect Assessment & Plan Assessment/Plan (1) Physical debility: (2) Right kidney mass: PLAN: Plan Patient is a 77-year-old gentleman admitted with progressive generalized weakness. Work-up so far in the hospital did reveal a large mass in the right kidney patient offered biopsy which is currently declining 1. Physical deconditioning - Requested for PT OT eval and social media intern to assist with discharge planning 2. Hyponatremia ? To be chronic managed with fluid restriction with subsequent serial BMPs ordered 3. Abnormal CT scan -CT in ED w/ Large mass in the right kidney. Destructive bony lesion in the left iliac bone in the supra acetabular region. Large cystic mass in the left adrenal gland. Heterogeneous enlargement of the prostate with bladder wall thickening. Patient was offered treatment options including biopsy to confirm diagnosis he declined at this point 4. History of right hemispheric stroke -Continue Plavix and atorvastatin 5. Hypertension - Blood pressure controlled, home medications continued with dose adjustment as needed 6. Dyslipidemia -Patient is on statin therapy, continued at home dose 7. GERD ? Patient is on famotidine 8. Moderate malnutrition -r/t chronically decreased appetite as evidenced by moderate muscle wasting/fat loss evident per physical exam in orbital, temporal, clavicle and acromion areas, estimated PO intake meeting <75% of estimated energy needs > 3 months continue regular diet, 120mL ensure plus high protein 4x/day w/ medpass. 9. DVT prophylaxis ? SC Lovenox Time spent in the patient's overall evaluation,decision-making process, review of diagnostic data, adjustment of management, discussion with other providers, nursing nursing and ancillary staff involved in patient's care documentation, 35 Minutes Charges/Coding Visit Charges Inpatient E&M: 27447 Subs Hosp L2
[2023-07-02 07:37] LABS: Phosphorus 3.9 mg/dL (2.5-4.9)
[2023-07-02 08:40] VITALS: BP 136/58; PULSE 78; TEMP 36.6; O2SAT 98
[2023-07-02 08:57] VITALS: O2SAT 96
[2023-07-02 09:49] VITALS: BP 121/46; PULSE 89; RESP 18; TEMP 37; O2SAT 95
[2023-07-02] MEDS: Ensure Plus High Protein 120 ML LIQUID PO ×2 (09:52→13:46)
[2023-07-02] MEDS: Menthol/Lanolin/Calamine/Znox 113 GM Tube 1 APPLIC TOPICAL (09:52)
[2023-07-02] MEDS: amLODIPine 5 MG Tablet PO (09:53)
[2023-07-02] MEDS: Lisinopril 20 MG Tablet PO (09:53)
[2023-07-02] MEDS: Famotidine 20 MG Tablet PO (09:53)
[2023-07-02] MEDS: Clopidogrel Bisulfate 75 MG Tablet PO (09:53)
--- NOTE | 2023-07-02 09:58 | TREXTCAR_ITS ---
Diet Diet Order/Speech Therapy: 06/27/23 17:06 Diet: Regular - General Food consistency:: Regular Liquid Consistency:: Regular/Thin Wound(s) coccyx: Wound Type: Pressure Injury Therapies Physical Therapy: Eval and Treat Occupational Therapy: Eval and Treat Problem/Diagnosis (1) Physical debility: Status: Chronic Code(s): R53.81 - Other malaise (2) Right kidney mass: Status: Acute Code(s): N28.89 - Other specified disorders of kidney and ureter Plan Patient is a 77-year-old gentleman admitted with progressive generalized weak ness. Work-up so far in the hospital did reveal a large mass in the right kidney patient offered biopsy which is currently declining 1. Physical deconditioning - Requested for PT OT eval and social media campaign manager to assist with discharge planning 2. Hyponatremia ? To be chronic managed with fluid restriction with subsequent serial BMPs ordered 3. Abnormal CT scan -CT in ED w/ Large mass in the right kidney. Destructive bony lesion in the left iliac bone in the supra acetabular region. Large cystic mass in the left adrenal gland. Heterogeneous enlargement of the prostate with bladder wall thickening. Patient was offered treatment options including biopsy to confirm diagnosis he declined at this point 4. History of right hemispheric stroke -Continue Plavix and atorvastatin 5. Hypertension - Blood pressure controlled, home medications continued with dose adjustment as needed 6. Dyslipidemia -Patient is on statin therapy, continued at home dose 7. GERD ? Patient is on famotidine 8. Moderate malnutrition -r/t chronically decreased appetite as evidenced by moderate muscle wasting/fat loss evident per physical exam in orbital, temporal, clavicle and acromion areas, estimated PO intake meeting <75% of estimated energy needs > 3 months continue regular diet, 120mL ensure plus high protein 4x/day w/ medpass. 9. DVT prophylaxis ? SC Lovenox Time spent in the patient's overall evaluation,decision-making process, review of diagnostic data, adjustment of management, discussion with other providers, nursing nursing and ancillary staff involved in patient's care documentation, 35 Minutes Allergies/Procedures Done in Hospital Allergies No Known Allergies Allergy (Verified 08/09/22 01:24) Type of Care/Length of Stay Estimated LOS: Convalescent Care Less Than 30 days Type of Care Needed: Skilled Rehab Potential: Good Prognosis: Good Additional Orders/Day of Discharge Day of Discharge: 07/02/23 Dietary and Speech Recommendations Dietitian Recommendations/Changes: continue regular diet, 120mL ensure plus high protein 4x/day w/ medpass Discharge Plan Admission Admit Date/Time: 06/27/23 15:28 Attending Provider: Joselo Locke Primary Care Provider: Kenny Martini Consulting Providers: Jojo Bergman; Ponce Bradley Discharge Orders/Prescriptions Prescriptions: New acetaminophen 325 mg Tablet 650 mg PO Q6H PRN PRN (Reason: Pain 1-10 Or Fever>100.7) Qty: 0 0RF sennosides-docusate sodium [Stool Softener-Stimulant Laxat] 8.6-50 mg Tablet 2 tab PO BID PRN PRN (Reason: Constipation) Qty: 0 0RF melatonin 3 mg Tablet 3 mg PO QHS PRN PRN (Reason: Insomnia) Qty: 0 0RF menthol-zinc oxide [Calmoseptine] 0.44-20.6 % Ointment 1 applic topical BID Qty: 0 0RF Protocol: *Topical Application Instructions APPLICATION INSTRUCTIONS: buttocks Ensure Plus High Protein 0.08 gram-1.5 kcal/mL Liquid 120 ml PO 4X/DAY Qty: 0 0RF Continued famotidine 20 MG tablet 20 mg PO DAILY atorvastatin 80 MG tablet 80 mg PO QHS clopidogrel 75 MG tablet 75 mg PO DAILY Hold Instructions: Hold for 5-day Patient Comments: UNSURE IF STILL TAKING LAST FILL WAS 06/13/21 X90 DAY SUPPLY. amlodipine 5 mg tablet 5 mg PO DAILY lisinopril 20 mg tablet 20 mg PO DAILY artificial tears with lanolin Ointment 1 applic EACH EYE DAILY Multivitamin 50 Plus Tablet 1 tab PO DAILY Referrals / Follow Up: Kenny Martini MD [Primary Care Provider] - Within 2 Weeks Disposition Disposition (needs filled in before D/C Order can be placed): [facility]
--- NOTE | 2023-07-02 10:08 | PCM.DC.SUM ---
Providers Date of Admission: 06/27/23 Date of Discharge: 07/02/23 Primary Care Physician: Dr. Kenny Martini MD Reason For Visit: WEAKNESS Diagnosis Discharge Diagnosis (1) Physical debility: Status: Chronic Code(s): R53.81 - Other malaise (2) Right kidney mass: Status: Acute Code(s): N28.89 - Other specified disorders of kidney and ureter Plan Patient is a 77-year-old gentleman admitted with progressive generalized weakness. Work-up so far in the hospital did reveal a large mass in the right kidney patient offered biopsy which is currently declining 1. Physical deconditioning - Requested for PT OT eval and social contact worker to assist with discharge planning 2. Hyponatremia ? To be chronic managed with fluid restriction with subsequent serial BMPs ordered 3. Abnormal CT scan -CT in ED w/ Large mass in the right kidney. Destructive bony lesion in the left iliac bone in the supra acetabular region. Large cystic mass in the left adrenal gland. Heterogeneous enlargement of the prostate with bladder wall thickening. Patient was offered treatment options including biopsy to confirm diagnosis he declined at this point 4. History of right hemispheric stroke -Continue Plavix and atorvastatin 5. Hypertension - Blood pressure controlled, home medications continued with dose adjustment as needed 6. Dyslipidemia -Patient is on statin therapy, continued at home dose 7. GERD ? Patient is on famotidine 8. Moderate malnutrition -r/t chronically decreased appetite as evidenced by moderate muscle wasting/fat loss evident per physical exam in orbital, temporal, clavicle and acromion areas, estimated PO intake meeting <75% of estimated energy needs > 3 months continue regular diet, 120mL ensure plus high protein 4x/day w/ medpass. 9. DVT prophylaxis ? SC Lovenox Time spent in the patient's overall evaluation,decision-making process, review of diagnostic data, adjustment of management, discussion with other providers, nursing nursing and ancillary staff involved in patient's care documentation, 35 Minutes Medications at Discharge Home Medications famotidine 20 mg tablet 20 mg PO DAILY GERD 12/09/19 atorvastatin 80 mg tablet 80 mg PO QHS CHOLESTEROL 02/09/22 clopidogrel 75 mg tablet 75 mg PO DAILY BLOOD THINNER 02/09/22 amlodipine 5 mg tablet 5 mg PO DAILY BLOOD PRESSURE 06/27/23 artificial tears with lanolin eye ointment 1 applic EACH EYE DAILY 06/27/23 lisinopril 20 mg tablet 20 mg PO DAILY BLOOD PRESSURE 06/27/23 [id number] tablet (Multivitamin 50 Plus tablet) 1 tab PO DAILY 06/27/23 acetaminophen 325 mg tablet 650 mg (2 x 325 mg) PO Q6H PRN PRN Pain 1-10 Or Fever>100.7 #0 tabs 07/02/23 food supplemt, lactose-reduced 0.08 gram-1.5 kcal/mL oral liquid (Ensure Plus High Protein) 120 ml PO 4X/DAY #0 mL 07/02/23 melatonin 3 mg tablet 3 mg PO QHS PRN PRN Insomnia #0 tabs 07/02/23 menthol 0.44 %-zinc oxide 20.6 % topical ointment (Calmoseptine) 1 applic topical BID #0 grams 07/02/23 sennosides 8.6 mg-docusate sodium 50 mg tablet (Stool Softener-Stimulant Laxative) 2 tab PO BID PRN PRN Constipation #0 tabs 07/02/23 Hospital Course Summary of Care Provided Minutes Spent on Discharge: 35 Weight / BMI Weight Weight: 68.691 kg Body Mass Index (BMI) 21.1 ABG / Lab / Microbiology Data 07/01/23 09:44 07/01/23 09:44 Laboratory: Laboratory Results - last 24 hr 07/01/23 09:44: Sodium 131 L, Potassium 4.1, Chloride 99, Carbon Dioxide 25.0, Anion Gap 7, BUN 18, Creatinine 0.64 L, Estim Creat Clear Calc 58.20, Est GFR (MDRD) Af Amer 156, Est GFR (MDRD) Non-Af 129, BUN/Creatinine Ratio 28.3 H, Glucose 118 H, Calcium 9.2, Magnesium 2.4 07/02/23 06:51: Phosphorus 3.9 D/C Instructions Discharge Diet: No restrictions Discharge Activity: Return to Normal Activity Call your doctor if you observe: Fever of 101 or Higher, Shortness of breath, Fainting spells and Chest pain Meaningful Use Info Meaningful Use Diagnoses (Choose all that apply): None applicable Discharge Plan Admission Admit Date/Time: 06/27/23 15:28 Attending Provider: Joselo Locke Primary Care Provider: Kenny Martini Consulting Providers: Jojo Bergman; Ponce Bradley Discharge Orders/Prescriptions Prescriptions: New acetaminophen 325 mg Tablet 650 mg PO Q6H PRN PRN (Reason: Pain 1-10 Or Fever>100.7) Qty: 0 0RF sennosides-docusate sodium [Stool Softener-Stimulant Laxat] 8.6-50 mg Tablet 2 tab PO BID PRN PRN (Reason: Constipation) Qty: 0 0RF melatonin 3 mg Tablet 3 mg PO QHS PRN PRN (Reason: Insomnia) Qty: 0 0RF menthol-zinc oxide [Calmoseptine] 0.44-20.6 % Ointment 1 applic topical BID Qty: 0 0RF Protocol: *Topical Application Instructions APPLICATION INSTRUCTIONS: buttocks Ensure Plus High Protein 0.08 gram-1.5 kcal/mL Liquid 120 ml PO 4X/DAY Qty: 0 0RF Continued famotidine 20 MG tablet 20 mg PO DAILY atorvastatin 80 MG tablet 80 mg PO QHS clopidogrel 75 MG tablet 75 mg PO DAILY Hold Instructions: Hold for 5-day Patient Comments: UNSURE IF STILL TAKING LAST FILL WAS 06/13/21 X90 DAY SUPPLY. amlodipine 5 mg tablet 5 mg PO DAILY lisinopril 20 mg tablet 20 mg PO DAILY artificial tears with lanolin Ointment 1 applic EACH EYE DAILY Multivitamin 50 Plus Tablet 1 tab PO DAILY Referrals / Follow Up: Kenny Martini MD [Primary Care Provider] - Within 2 Weeks Disposition Disposition (needs filled in before D/C Order can be placed): [facility] Charges/Coding Visit Charges Inpatient E&M: 98703 Disch Hosp >30min
--- NOTE | 2023-07-02 10:17 | PHA.DC_ITS ---
Pharmacy PR Med Reconciliation Pharmacy Service has performed discharge medication reconciliation for this patient upon transfer to [facility]. The patient's discharge medication list was reviewed for discrepancies and discrepancies were resolved. Medications at Discharge Home Medications famotidine 20 mg tablet 20 mg PO DAILY GERD 12/09/19 atorvastatin 80 mg tablet 80 mg PO QHS CHOLESTEROL 02/09/22 clopidogrel 75 mg tablet 75 mg PO DAILY BLOOD THINNER 02/09/22 amlodipine 5 mg tablet 5 mg PO DAILY BLOOD PRESSURE 06/27/23 artificial tears with lanolin eye ointment 1 applic EACH EYE DAILY 06/27/23 lisinopril 20 mg tablet 20 mg PO DAILY BLOOD PRESSURE 06/27/23 [id number] tablet (Multivitamin 50 Plus tablet) 1 tab PO DAILY 06/27/23 acetaminophen 325 mg tablet 650 mg (2 x 325 mg) PO Q6H PRN PRN Pain 1-10 Or Fever>100.7 #0 tabs 07/02/23 food supplemt, lactose-reduced 0.08 gram-1.5 kcal/mL oral liquid (Ensure Plus High Protein) 120 ml PO 4X/DAY #0 mL 07/02/23 melatonin 3 mg tablet 3 mg PO QHS PRN PRN Insomnia #0 tabs 07/02/23 menthol 0.44 %-zinc oxide 20.6 % topical ointment (Calmoseptine) 1 applic topical BID #0 grams 07/02/23 sennosides 8.6 mg-docusate sodium 50 mg tablet (Stool Softener-Stimulant Laxative) 2 tab PO BID PRN PRN Constipation #0 tabs 07/02/23
--- NOTE | 2023-07-02 10:20 | CASEMGMT ---
Discharge Planning Patient has been accepted by [facility]. Physician, SW, patient, and his updated. Jesica Cooney, Discharge Planning Asst.
[2023-07-02 11:20] VITALS: BP 119/48; PULSE 87; RESP 16; TEMP 37; O2SAT 97
--- NOTE | 2023-07-02 14:29 | NURSING ---
Report called to [facility] at [phone] to [place] the nurse. Pt to be picked up at 4pm.
--- NOTE | 2023-07-02 14:34 | CASEMGMT ---
Discharge Planning Discharge orders, signed med list, covid results, and transport time sent to [facility] via [facility]. [facility] will transport patient by wheelchair at 4p. Nursing, SW, and patient updated. left for patients . Jesica Cooney, Discharge Planning Asst.
[2023-07-02 15:05] VITALS: BP 134/48; PULSE 76; RESP 18; TEMP 36.2; O2SAT 99
== END 2023-07-02 19:00 | disposition skilled nursing facility (03) | DRG 948 ==
LOC: ED 14:08 → MS3 15:37
PROVIDERS: Admitting Provider Internal Medicine; Emergency Provider Emergency Medicine; PCP Family Medicine; Visit Provider Internal Medicine
DX: R53.81 Other malaise (principal); E44.0 Moderate protein-calorie malnutrition; I69.354 Hemiplegia and hemiparesis following cerebral infarction affecting left non-dominant side; E87.1 Hypo-osmolality and hyponatremia; G93.89 Other specified disorders of brain; J44.9 Chronic obstructive pulmonary disease, unspecified; E27.9 Disorder of adrenal gland, unspecified; I10 Essential (primary) hypertension; E78.5 Hyperlipidemia, unspecified; K21.9 Gastro-esophageal reflux disease without esophagitis; R53.1 Weakness; Z87.891 Personal history of nicotine dependence; Z79.02 Long term (current) use of antithrombotics/antiplatelets; N28.89 Other specified disorders of kidney and ureter; Z68.21 Body mass index [BMI] 21.0-21.9, adult
CPT/HCPCS: 36415; 70450; 71045; 74176; 80048; 80053; 81001; 82306; 82436; 82570; 83735; 83930; 83935; 84100; 84133; 84300; 84443; 84484; 84540; 85025; 87426; 97116; 97162; 97166; 97530; 97535; 97802; 99285; J7030; A4216

== ENCOUNTER → 2023-08-28 | Outpatient (REF) | payer MEDICARE, BC, SELFPAY ==
[2023-08-28 09:23] LABS: Absolute Neutrophil Count 6.4 X10^3/uL (2.0-7.7); Basophil# 0.03 X10^3/uL; Basophil% 0.4 % (0-1); Eosinophil# 0.08 X10^3/uL; Hematocrit 42.7 % (40-54); Hemoglobin 13.4 g/dL (13.0-16.5); Mean Corp Hgb Conc 31.4 g/dL (32-36); Mean Corpuscular Hgb 29.3 pg (27.0-32.0); Mean Corpuscular Volume 93.2 fL (80-94); Mean Platelet Vol. 8.9 fl (6.2-12.0); Monocyte# 0.75 X10^3/uL; Monocyte% 9.2 % (0-10); NRBC Flagged by Analyzer 0 % (0-5); Neutrophil # 6.38 X10^3/uL (2.7-7.7); Neutrophil % 78.2 % (47-70); Platelet Count 236 K/mm3 (150-450); RBC Distribution Width CV 13.7 % (11.6-14.6); RBC Distribution Width SD 46.5 fl (35.1-43.9); Red Blood Count 4.58 M/mm3 (4.6-6.2); White Blood Count 8.2 K/mm3 (4.4-11.0)
[2023-08-28 09:37] LABS: Anion Gap 8 (5-15); BUN 12 mg/dL (7-18); BUN/Creat Ratio 21.6 RATIO (10-20); Calcium,Total 8.9 mg/dL (8.5-10.1); Chloride 102 mmol/L (98-107); Creatinine, Serum 0.56 mg/dL (0.70-1.30); EST Glomerular Filtration Rate 151 mL/min (>60); Est Glom Filt Rate - Afr Amer 182 mL/min (>60); Glucose 82 mg/dL (74-106); Potassium 3.7 mmol/L (3.5-5.1); Sodium Level 137 mmol/L (136-145)
== END ==
LOC: OLS.WHLTCC 05:00
PROVIDERS: PCP Family Medicine; Visit Provider Internal Medicine
DX: R53.82 Chronic fatigue, unspecified (principal)
CPT/HCPCS: 36415; 80048; 85025

== ENCOUNTER → 2023-09-04 | Outpatient (REF) | payer MEDICARE, BC, SELFPAY ==
[2023-09-04 08:12] LABS: Absolute Lymphocyte Count 1.64 X10^3/uL (0.83-4.51); Absolute Neutrophil Count 3.7 X10^3/uL (2.0-7.7); Basophil# 0.01 X10^3/uL; Basophil% 0.2 % (0-1); Eosinophil# 0.01 X10^3/uL; Eosinophils% 0.2 % (0-5); Hematocrit 42.6 % (40-54); Hemoglobin 13.4 g/dL (13.0-16.5); Lymphocyte # 1.64 X10^3/ul (0.83-4.51); Lymphocyte % 28.4 % (19-41); Mean Corp Hgb Conc 31.5 g/dL (32-36); Mean Corpuscular Hgb 28.5 pg (27.0-32.0); Mean Corpuscular Volume 90.6 fL (80-94); Mean Platelet Vol. 9.4 fl (6.2-12.0); Monocyte# 0.41 X10^3/uL; Monocyte% 7.1 % (0-10); NRBC Flagged by Analyzer 0 % (0-5); Neutrophil # 3.69 X10^3/uL (2.7-7.7); Neutrophil % 63.9 % (47-70); Platelet Count 152 K/mm3 (150-450); RBC Distribution Width CV 13.8 % (11.6-14.6); RBC Distribution Width SD 46.3 fl (35.1-43.9); White Blood Count 5.8 K/mm3 (4.4-11.0)
[2023-09-04 08:29] LABS: Anion Gap 5 (5-15); BUN 14 mg/dL (7-18); BUN/Creat Ratio 21.8 RATIO (10-20); Chloride 99 mmol/L (98-107); Creatinine, Serum 0.64 mg/dL (0.70-1.30); EST Glomerular Filtration Rate 127 mL/min (>60); Est Glom Filt Rate - Afr Amer 154 mL/min (>60); Glucose 101 mg/dL (74-106); Potassium 2.7 mmol/L (3.5-5.1); Sodium Level 134 mmol/L (136-145)
== END ==
LOC: OLS.WHLTCC 05:00
PROVIDERS: PCP Family Medicine; Visit Provider Internal Medicine
DX: R53.82 Chronic fatigue, unspecified (principal); I69.354 Hemiplegia and hemiparesis following cerebral infarction affecting left non-dominant side; E87.1 Hypo-osmolality and hyponatremia
CPT/HCPCS: 36415; 80048; 85025

== ENCOUNTER → 2023-09-06 | Outpatient (REF) | payer MEDICARE, BC, SELFPAY ==
[2023-09-06 07:39] LABS: Anion Gap 5 (5-15); BUN 13 mg/dL (7-18); BUN/Creat Ratio 22.6 RATIO (10-20); Calcium,Total 9.1 mg/dL (8.5-10.1); Chloride 102 mmol/L (98-107); Creatinine, Serum 0.57 mg/dL (0.70-1.30); EST Glomerular Filtration Rate 145 mL/min (>60); Est Glom Filt Rate - Afr Amer 176 mL/min (>60); Glucose 99 mg/dL (74-106); Potassium 3.9 mmol/L (3.5-5.1); Sodium Level 134 mmol/L (136-145)
== END ==
LOC: OLS.WHLTCC 05:00
PROVIDERS: PCP Family Medicine; Visit Provider Internal Medicine
DX: E87.1 Hypo-osmolality and hyponatremia (principal); I69.354 Hemiplegia and hemiparesis following cerebral infarction affecting left non-dominant side; M62.561 Muscle wasting and atrophy, not elsewhere classified, right lower leg
CPT/HCPCS: 36415; 80048

== ENCOUNTER → 2023-09-11 | Outpatient (REF) | payer MEDICARE, BC, SELFPAY ==
[2023-09-11 10:00] LABS: Anion Gap 2 (5-15); BUN 12 mg/dL (7-18); BUN/Creat Ratio 21.5 RATIO (10-20); Calcium,Total 9.2 mg/dL (8.5-10.1); Chloride 104 mmol/L (98-107); Creatinine, Serum 0.56 mg/dL (0.70-1.30); EST Glomerular Filtration Rate 150 mL/min (>60); Est Glom Filt Rate - Afr Amer 181 mL/min (>60); Glucose 101 mg/dL (74-106); Potassium 5.3 mmol/L (3.5-5.1); Sodium Level 132 mmol/L (136-145)
[2023-09-11 10:12] LABS: Absolute Lymphocyte Count 1.58 X10^3/uL (0.83-4.51); Absolute Neutrophil Count 5.5 X10^3/uL (2.0-7.7); Basophil# 0.01 X10^3/uL; Basophil% 0.1 % (0-1); Eosinophils% 1.2 % (0-5); Hematocrit 39.3 % (40-54); Hemoglobin 12.3 g/dL (13.0-16.5); Lymphocyte # 1.58 X10^3/ul (0.83-4.51); Lymphocyte % 19.6 % (19-41); Mean Corp Hgb Conc 31.3 g/dL (32-36); Mean Corpuscular Hgb 28.9 pg (27.0-32.0); Mean Corpuscular Volume 92.3 fL (80-94); Mean Platelet Vol. 9.4 fl (6.2-12.0); Monocyte# 0.83 X10^3/uL; Monocyte% 10.3 % (0-10); NRBC Flagged by Analyzer 0 % (0-5); Neutrophil # 5.54 X10^3/uL (2.7-7.7); Neutrophil % 68.6 % (47-70); Platelet Count 278 K/mm3 (150-450); RBC Distribution Width CV 14.1 % (11.6-14.6); RBC Distribution Width SD 47.7 fl (35.1-43.9); Red Blood Count 4.26 M/mm3 (4.6-6.2); White Blood Count 8.1 K/mm3 (4.4-11.0)
== END ==
LOC: OLS.WHLTCC 05:20
PROVIDERS: PCP Family Medicine; Visit Provider Internal Medicine
DX: R53.82 Chronic fatigue, unspecified (principal); I69.354 Hemiplegia and hemiparesis following cerebral infarction affecting left non-dominant side; M62.561 Muscle wasting and atrophy, not elsewhere classified, right lower leg; E87.1 Hypo-osmolality and hyponatremia
CPT/HCPCS: 36415; 80048; 85025

== ENCOUNTER → 2023-09-18 | Outpatient (REF) | payer MEDICARE, BC, SELFPAY ==
[2023-09-18 07:35] LABS: Absolute Lymphocyte Count 1.95 X10^3/uL (0.83-4.51); Absolute Neutrophil Count 6.3 X10^3/uL (2.0-7.7); Basophil# 0.04 X10^3/uL; Basophil% 0.4 % (0-1); Eosinophil# 0.11 X10^3/uL; Eosinophils% 1.2 % (0-5); Hematocrit 38.8 % (40-54); Hemoglobin 12.1 g/dL (13.0-16.5); Lymphocyte # 1.95 X10^3/ul (0.83-4.51); Lymphocyte % 20.6 % (19-41); Mean Corp Hgb Conc 31.2 g/dL (32-36); Mean Corpuscular Hgb 29.4 pg (27.0-32.0); Mean Corpuscular Volume 94.2 fL (80-94); Mean Platelet Vol. 8.5 fl (6.2-12.0); Monocyte# 1.01 X10^3/uL; Monocyte% 10.7 % (0-10); NRBC Flagged by Analyzer 0 % (0-5); Neutrophil # 6.33 X10^3/uL (2.7-7.7); Neutrophil % 66.8 % (47-70); Platelet Count 330 K/mm3 (150-450); RBC Distribution Width SD 51.4 fl (35.1-43.9); Red Blood Count 4.12 M/mm3 (4.6-6.2); White Blood Count 9.5 K/mm3 (4.4-11.0)
[2023-09-18 07:52] LABS: Anion Gap 3 (5-15); BUN 26 mg/dL (7-18); BUN/Creat Ratio 31.6 RATIO (10-20); Calcium,Total 9.6 mg/dL (8.5-10.1); Chloride 109 mmol/L (98-107); Creatinine, Serum 0.82 mg/dL (0.70-1.30); EST Glomerular Filtration Rate 96 mL/min (>60); Est Glom Filt Rate - Afr Amer 116 mL/min (>60); Glucose 98 mg/dL (74-106); Sodium Level 134 mmol/L (136-145)
== END ==
LOC: OLS.WHLEAS 05:00
PROVIDERS: PCP Family Medicine; Visit Provider Internal Medicine
DX: R53.82 Chronic fatigue, unspecified (principal); I69.354 Hemiplegia and hemiparesis following cerebral infarction affecting left non-dominant side; E87.1 Hypo-osmolality and hyponatremia; M62.561 Muscle wasting and atrophy, not elsewhere classified, right lower leg
CPT/HCPCS: 36415; 80048; 85025

== ENCOUNTER → 2023-09-25 | Outpatient (REF) | payer MEDICARE, BC, SELFPAY ==
[2023-09-25 08:44] LABS: Absolute Neutrophil Count 6.1 X10^3/uL (2.0-7.7); Basophil# 0.04 X10^3/uL; Basophil% 0.4 % (0-1); Eosinophils% 2.1 % (0-5); Hematocrit 36.1 % (40-54); Hemoglobin 11.2 g/dL (13.0-16.5); Lymphocyte % 22.2 % (19-41); Mean Corpuscular Hgb 29.1 pg (27.0-32.0); Mean Corpuscular Volume 93.8 fL (80-94); Mean Platelet Vol. 8.6 fl (6.2-12.0); Monocyte# 0.98 X10^3/uL; Monocyte% 10.3 % (0-10); NRBC Flagged by Analyzer 0 % (0-5); Neutrophil # 6.12 X10^3/uL (2.7-7.7); Neutrophil % 64.6 % (47-70); Platelet Count 265 K/mm3 (150-450); RBC Distribution Width CV 15.7 % (11.6-14.6); RBC Distribution Width SD 53.5 fl (35.1-43.9); Red Blood Count 3.85 M/mm3 (4.6-6.2); White Blood Count 9.5 K/mm3 (4.4-11.0)
[2023-09-25 09:06] LABS: Anion Gap 3 (5-15); BUN 21 mg/dL (7-18); BUN/Creat Ratio 30.5 RATIO (10-20); Chloride 109 mmol/L (98-107); Creatinine, Serum 0.69 mg/dL (0.70-1.30); EST Glomerular Filtration Rate 118 mL/min (>60); Est Glom Filt Rate - Afr Amer 142 mL/min (>60); Glucose 84 mg/dL (74-106); Potassium 5.5 mmol/L (3.5-5.1); Sodium Level 130 mmol/L (136-145)
== END ==
LOC: OLS.WHLEAS 05:00
PROVIDERS: PCP Family Medicine; Visit Provider Internal Medicine
DX: R53.82 Chronic fatigue, unspecified (principal); I69.354 Hemiplegia and hemiparesis following cerebral infarction affecting left non-dominant side; E87.1 Hypo-osmolality and hyponatremia; M62.561 Muscle wasting and atrophy, not elsewhere classified, right lower leg; M62.562 Muscle wasting and atrophy, not elsewhere classified, left lower leg
CPT/HCPCS: 36415; 80048; 85025

== ENCOUNTER → 2023-10-02 | Outpatient (REF) | payer MEDICARE, BC, SELFPAY ==
[2023-10-02 07:39] LABS: Absolute Lymphocyte Count 2.14 X10^3/uL (0.83-4.51); Basophil# 0.05 X10^3/uL; Basophil% 0.5 % (0-1); Eosinophil# 0.13 X10^3/uL; Eosinophils% 1.3 % (0-5); Hematocrit 34.5 % (40-54); Hemoglobin 10.9 g/dL (13.0-16.5); Lymphocyte # 2.14 X10^3/ul (0.83-4.51); Lymphocyte % 20.6 % (19-41); Mean Corp Hgb Conc 31.6 g/dL (32-36); Mean Platelet Vol. 8.4 fl (6.2-12.0); Monocyte# 1.02 X10^3/uL; Monocyte% 9.8 % (0-10); NRBC Flagged by Analyzer 0 % (0-5); Neutrophil # 7.03 X10^3/uL (2.7-7.7); Neutrophil % 67.6 % (47-70); Platelet Count 270 K/mm3 (150-450); RBC Distribution Width CV 16.7 % (11.6-14.6); RBC Distribution Width SD 58.1 fl (35.1-43.9); Red Blood Count 3.63 M/mm3 (4.6-6.2); White Blood Count 10.4 K/mm3 (4.4-11.0)
[2023-10-02 08:08] LABS: Anion Gap 4 (5-15); BUN 24 mg/dL (7-18); BUN/Creat Ratio 30.5 RATIO (10-20); Calcium,Total 9.4 mg/dL (8.5-10.1); Chloride 107 mmol/L (98-107); Creatinine, Serum 0.79 mg/dL (0.70-1.30); EST Glomerular Filtration Rate 101 mL/min (>60); Est Glom Filt Rate - Afr Amer 122 mL/min (>60); Glucose 123 mg/dL (74-106); Potassium 5.6 mmol/L (3.5-5.1); Sodium Level 131 mmol/L (136-145)
== END ==
LOC: OLS.WHLEAS 05:00
PROVIDERS: PCP Family Medicine; Visit Provider Internal Medicine
DX: R53.82 Chronic fatigue, unspecified (principal); I69.354 Hemiplegia and hemiparesis following cerebral infarction affecting left non-dominant side; E87.1 Hypo-osmolality and hyponatremia; M62.561 Muscle wasting and atrophy, not elsewhere classified, right lower leg
CPT/HCPCS: 36415; 80048; 85025

== ENCOUNTER → 2023-10-17 | Outpatient (REF) | payer MEDICARE, BC, SELFPAY ==
[2023-10-17 07:19] LABS: Absolute Lymphocyte Count 1.85 X10^3/uL (0.83-4.51); Absolute Neutrophil Count 5.9 X10^3/uL (2.0-7.7); Basophil# 0.04 X10^3/uL; Basophil% 0.5 % (0-1); Eosinophil# 0.17 X10^3/uL; Eosinophils% 1.9 % (0-5); Hematocrit 34.9 % (40-54); Hemoglobin 10.8 g/dL (13.0-16.5); Lymphocyte # 1.85 X10^3/ul (0.83-4.51); Mean Corp Hgb Conc 30.9 g/dL (32-36); Mean Corpuscular Hgb 29.2 pg (27.0-32.0); Mean Corpuscular Volume 94.3 fL (80-94); Mean Platelet Vol. 8.4 fl (6.2-12.0); Monocyte# 0.78 X10^3/uL; Monocyte% 8.9 % (0-10); NRBC Flagged by Analyzer 0 % (0-5); Neutrophil # 5.93 X10^3/uL (2.7-7.7); Neutrophil % 67.5 % (47-70); Platelet Count 290 K/mm3 (150-450); RBC Distribution Width CV 16.3 % (11.6-14.6); RBC Distribution Width SD 56.7 fl (35.1-43.9); White Blood Count 8.8 K/mm3 (4.4-11.0)
[2023-10-17 07:35] LABS: ALB/GLOB Ratio 0.5 RATIO (0.9-2.4); AST(SGOT) 44 U/L (15-37); Alanine Aminotransfer ALT/SGPT 49 U/L (16-61); Albumin, Serum 2.6 g/dL (3.2-5.0); Alkaline Phosphatase 94 U/L (45-117); Anion Gap 7 (5-15); BUN 19 mg/dL (7-18); BUN/Creat Ratio 32.6 RATIO (10-20); Calcium,Total 9.6 mg/dL (8.5-10.1); Chloride 105 mmol/L (98-107); Cholesterol 72 mg/dL (200); Creatinine, Serum 0.58 mg/dL (0.70-1.30); EST Glomerular Filtration Rate 143 mL/min (>60); Est Glom Filt Rate - Afr Amer 173 mL/min (>60); Globulin 4.8 g/dL (2.2-4.2); Glucose 91 mg/dL (74-106); High Density Lipoprotein 48 mg/dL; Potassium 5.3 mmol/L (3.5-5.1); Protein, Total 7.4 g/dL (6.4-8.2); Sodium Level 132 mmol/L (136-145); Triglycerides 57 mg/dL; Very Low Density Lipoprotein 11 mg/dL (5-40)
== END ==
LOC: OLS.WHLEAS 05:00
PROVIDERS: PCP Family Medicine; Visit Provider Internal Medicine
DX: I10 Essential (primary) hypertension (principal); I69.354 Hemiplegia and hemiparesis following cerebral infarction affecting left non-dominant side; E87.1 Hypo-osmolality and hyponatremia
CPT/HCPCS: 36415; 80053; 80061; 85025

== ENCOUNTER → 2023-10-21 | Outpatient (REF) | payer MEDICARE, BC, SELFPAY ==
[2023-10-21 08:53] LABS: Potassium 4.2 mmol/L (3.5-5.1)
== END ==
LOC: OLS.WHLEAS 05:00
PROVIDERS: PCP Family Medicine; Visit Provider Internal Medicine
DX: E87.6 Hypokalemia (principal)
CPT/HCPCS: 36415; 84132

== ENCOUNTER → 2023-11-19 | Outpatient (REF) | payer MEDICARE, BC, SELFPAY ==
[2023-11-19 10:03] LABS: Absolute Lymphocyte Count 1.45 X10^3/uL (0.83-4.51); Absolute Neutrophil Count 8.6 X10^3/uL (2.0-7.7); Basophil# 0.04 X10^3/uL; Basophil% 0.4 % (0-1); Eosinophil# 0.05 X10^3/uL; Eosinophils% 0.4 % (0-5); Hematocrit 36.6 % (40-54); Hemoglobin 11.2 g/dL (13.0-16.5); Lymphocyte # 1.45 X10^3/ul (0.83-4.51); Mean Corp Hgb Conc 30.6 g/dL (32-36); Mean Corpuscular Hgb 28.9 pg (27.0-32.0); Mean Corpuscular Volume 94.3 fL (80-94); Mean Platelet Vol. 8.5 fl (6.2-12.0); Monocyte# 0.97 X10^3/uL; Monocyte% 8.7 % (0-10); NRBC Flagged by Analyzer 0 % (0-5); Neutrophil # 8.61 X10^3/uL (2.7-7.7); Neutrophil % 77.1 % (47-70); Platelet Count 340 K/mm3 (150-450); RBC Distribution Width CV 15.6 % (11.6-14.6); RBC Distribution Width SD 54.3 fl (35.1-43.9); Red Blood Count 3.88 M/mm3 (4.6-6.2); White Blood Count 11.2 K/mm3 (4.4-11.0)
[2023-11-19 10:30] LABS: Anion Gap 6 (5-15); BUN 27 mg/dL (7-18); Calcium,Total 10.8 mg/dL (8.5-10.1); Chloride 106 mmol/L (98-107); EST Glomerular Filtration Rate 170 mL/min (>60); Est Glom Filt Rate - Afr Amer 206 mL/min (>60); Glucose 101 mg/dL (74-106); Potassium 4.8 mmol/L (3.5-5.1); Sodium Level 134 mmol/L (136-145)
== END ==
LOC: OLS.WHLEAS 05:00
PROVIDERS: PCP Family Medicine; Visit Provider Internal Medicine
DX: I10 Essential (primary) hypertension (principal); I69.354 Hemiplegia and hemiparesis following cerebral infarction affecting left non-dominant side
CPT/HCPCS: 36415; 80048; 85025